=== PATIENT | female | born 1990 | race African-American/Black ===

== ENCOUNTER 2023-08-11 12:37 | Emergency (ER) | payer MEDICAID ==
[~2023-08-11] VITALS: Ht 182.9 cm; Wt 82.6 kg
[2023-08-11 13:54] VITALS: BP 135/95; PULSE 84; RESP 16; TEMP 98.1; O2SAT 99
[2023-08-11] MEDS ORDERED: CEPH500C PO (14:10)
[2023-08-11] MEDS ORDERED: IBUP-1454 PO (14:10)
[2023-08-11] MEDS ORDERED: cefTRIAXone SOD 1,000 MG VL IM ONE (14:15)
[2023-08-11] MEDS ORDERED: LIDOCAINE 1% HCL (LOCAL ANESTH.) INJ 20ML MDV IJ ONE (14:30)
== END 2023-08-11 14:28 | disposition home or self-care (01) ==
LOC: ER 12:37
DX: S00.86XA Insect bite (nonvenomous) of other part of head, initial encounter (principal); Z79.1 Long term (current) use of non-steroidal anti-inflammatories (NSAID); Z79.899 Other long term (current) drug therapy; W57.XXXA Bitten or stung by nonvenomous insect and other nonvenomous arthropods, initial encounter; Y93.89 Activity, other specified; Y92.89 Other specified places as the place of occurrence of the external cause; Y99.8 Other external cause status
CPT/HCPCS: 96372; 99283; J0696; J2001

== ENCOUNTER 2025-06-06 00:20 | Inpatient (IN) | payer MEDICAID ==
[2025-06-06] VITALS (82 sets, daily range): BP systolic 102–168; BP diastolic 64–111; PULSE 57–103; RESP 15–24; TEMP 97.7–98.8; O2SAT 98–100
[~2025-06-06] VITALS: Ht 172.7 cm; Wt 89.4 kg
[~2025-06-06 00:20] MED LIST: CEPH500C PO; IBUP-1454 PO
[2025-06-06] MEDS: levETIRAcetam 1000 mg/100ml 100 ML IV ONE (00:32)
[2025-06-06] MEDS: LORazepam 2MG/ML-1ML VIAL IM ONE (00:37)
[2025-06-06] MEDS: LORazepam 2MG/ML-1ML VIAL IV ONE ×2 (00:42→00:47)
[2025-06-06 00:55] LABS: Nucleated Red Blood Cells % 0.1 %
[2025-06-06 00:57] LABS: Hematocrit 32.8 % (36.0-46.0); Hemoglobin 11.1 g/dL (12.2-16.2); Mean Corpuscular Hemoglobin 34.2 pg (28.0-32.0); Mean Corpuscular Volume 100.9 fL (80.0-100.0)
[2025-06-06 01:08] LABS: Chloride 107 mmol/L (98-107); Potassium 4.1 mmol/L (3.5-5.1); Sodium 138 mmol/L (136-145)
[2025-06-06 01:09] LABS: Anion Gap 7 (5-15); Carbon Dioxide 24 mmol/L (20-31)
[2025-06-06 01:10] LABS: Calcium 8.9 mg/dL (8.7-10.4)
[2025-06-06] MEDS: ROCURONIUM 10MG/ML 10ML VIAL IV ONE (01:10)
[2025-06-06] MEDS: ETOMIDATE (2MG/ML) 20ML VIAL IV ONE ×2 (01:10→01:20)
[2025-06-06] MEDS: MIDAZOLAM HCL 2MG/2ML 2ml VIAL (1mg/ml) IV ONE (01:10)
[2025-06-06 01:14] LABS: BUN/Creatinine Ratio 13.6 (10.0-20.0); Blood Urea Nitrogen 12 mg/dL (9-23); Glucose 86 mg/dL (74-106)
[2025-06-06] MEDS: PROPOFOL 100 ML IV SCH (01:14)
[2025-06-06] MEDS: MIDAZOLAM HCL 2MG/2ML 2ml VIAL (1mg/ml) ONE (01:20)
[2025-06-06] MEDS: PROPOFOL 100 ML IV ONE ×2 (01:21→01:23)
--- NOTE | 2025-06-06 01:48 | ED.PDOC ---
HPI (NEURO) HPI Comments 34-year-old female history of seizures, who was brought in by roommate. Roommate states that patient was at a green party when she started having seizures in the room that has called back. We will may brought the patient straight to emergency department. While in the emergency department patient had minimum 70 seizures witnessed, lasting approximate 45 seconds. Seizures were approximate every other minute. Patient had minor episodes of alertness and states she has been intubated in the past for her seizures. Patient states last seizure was yesterday. States she has been taking her Keppra as prescribed. Chief Complaint: Seizure Time Seen by MD: 00:28 Primary Care Provider: BARAK Oneal Notes: Nurses Notes Information Source: Patient Mode of Arrival: Wheelchair Past Medical History PAST MEDICAL HISTORY: Denies Surgical History: Denies all surgeries WOOD TYPE CUTTER History: No Pertinent WOOD TYPE CUTTER History Family History Family History: Reviewed,noncontributory to illness, No family hx of Cancer, No family hx of DM, No family hx of Heart ramy, No family hx of HTN, No family hx ofKidney ramy, No family hx of Liver ramy, No family hx of Lung ramy, No family hx of Stroke Social History Smoker: Non-Smoker Alcohol: Denies ETOH Use Drugs: Denies Drug Use Lives In: Home Unable to Obtain due to: Altered Mental Status Physical Exam General Appearance: Severe Distress HEENT: Other ([place], fixed) Neck: NOT DONE Respiratory: Lungs Clear, No Accessory Muscle Use Cardiovascular: Normal Peripheral Pulses, Regular Rate/Rhythm Breast Exam: Deferred Gastrointestinal: Normal Bowel Sounds Genitalia: Deferred Pelvic: Deferred Rectal: None Extremities: Normal capillary refill, Normal inspection Neurologic: Seizure Cerebellar Function: NOT DONE Reflexes: NOT DONE Skin: Dry, Warm Lymphatic: NOT DONE Was a procedure done? Was a procedure done?: Yes Sedation Sedation?: No Intubation Indication: Altered Mental Status, Airway Protection Prep: Preoxygenation Pretreated with: Sedation Medicated with: Other (Rocuronium, Versed, etomidate) Intubation Approach: Orotracheal Intubation size: cm (8) Informed consent obtained: Yes Risks/benefits/alt described: Yes Differential Diagnosis (SZ) Seizure: Closed Head Injury, CVA/TIA, Drug Ingestion, Meningitis, Epilepsy- Break Through, Epilepsy-Status X-Ray, Labs, Meds, VS Vital Signs Date Time Temp Pulse Resp B/P (MAP) Pulse Ox O2 Delivery O2 Flow Rate FiO2 06/06/25 02:15 143/99 06/06/25 01:14 131/97 06/06/25 01:10 137/90 06/06/25 00:20 98.5 77 12 151/96 (114) 100 98.5 Lab Test 06/06/25 02:09 06/06/25 01:39 06/06/25 00:32 Range/Units Blood Gas Specimen Type Arterial Blood Gas Sample Site Right radial Blood Gas Patient Temperature 37.0 Arterial Blood Date Drawn [id number] Arterial Blood pH 7.385 7.350-7.450 Arterial Blood Partial Pressure CO2 39.3 32.0-45.0 mmHg Arterial Blood Partial Pressure O2 212.6 H 83.0-108.0 mmHg Arterial Blood HCO3 23.0 21.0-28.0 mmol/L Arterial Blood Oxygen Saturation 99.4 H 94.0-98.0 % Arterial Blood Base Excess -1.8 -2.0-3.0 mmol/L Arterial Blood Oxyhemoglobin 98.5 H 94.0-98.0 % Arterial Blood Carboxyhemoglobin 0.6 0.5-1.5 % Arterial Blood Methemoglobin 0.3 0.0-1.5 % Hi Test Modified Blood Gas Total Hemoglobin 12.10 12.0-16.0 g/dL Blood Gas Set Respiration Rate 16.0 Blood Gas Modality Vent - ac Blood Gas Spontaneous Rate 18 FiO2 % 50.0 Blood Gas Tidal Volume 450.0 Blood Gas Spontaneous Tidal Volume 411 Blood Gas PEEP or CPAP 5.0 Bl Gas Inspiratory/Expiratory Ratio 1:2:3 Specimen Drawn By rt Simran Urine Color Pending Urine Clarity Pending Urine pH Pending Urine Specific [place] Pending Urine Protein Pending Urine Ketones Pending Urine Blood Pending Urine Nitrite Pending Urine Bilirubin Pending Urine Urobilinogen Pending Urine Leukocyte Esterase Pending Urine RBC Pending Urine Microscopic WBC Pending Urine Squamous Epithelial Cells Pending Urine Bacteria Pending Urine Glucose Pending White Blood Count 6.9 4.4-10.8 10^3/uL Red Blood Count 3.25 L 4.0-5.20 10^6/uL Hemoglobin 11.1 L 12.2-16.2 g/dL Hematocrit 32.8 L 36.0-46.0 % Mean Corpuscular Volume 100.9 H 80.0-100.0 fL Mean Corpuscular Hemoglobin 34.2 H 28.0-32.0 pg Mean Corpuscular Hemoglobin Concent 33.9 32.0-36.0 g/dL Red Cell Distribution Width 13.7 11.8-14.3 % Platelet Count 303 140-450 10^3/uL Mean Platelet Volume 8.1 6.9-10.8 fL Neutrophils (%) (Auto) 50.3 37.0-80.0 % Lymphocytes (%) (Auto) 39.8 10.0-50.0 % Monocytes (%) (Auto) 7.9 0.0-12.0 % Eosinophils (%) (Auto) 1.2 0.0-7.0 % Basophils (%) (Auto) 0.8 0.0-2.0 % Neutrophils # (Auto) 3.5 1.6-8.6 10 ^3/uL Lymphocytes # (Auto) 2.7 0.4-5.4 10 ^3/uL Monocytes # (Auto) 0.5 0-1.3 10 ^3/uL Eosinophils # (Auto) 0.1 0-0.8 10 ^3/uL Basophils # (Auto) 0.1 0-0.2 10 ^3/uL Nucleated Red Blood Cells 0.1 % Sodium Level 138 136-145 mmol/L Potassium Level 4.1 3.5-5.1 mmol/L Chloride Level 107 98-107 mmol/L Carbon Dioxide Level 24 20-31 mmol/L Anion Gap 7 5-15 Blood Urea Nitrogen 12 9-23 mg/dL Creatinine 0.88 0.550-1.02 mg/dL Glomerular Filtration Rate Calc 88 >90 mL/min BUN/Creatinine Ratio 13.6 10.0-20.0 Serum Glucose 86 74-106 mg/dL Calcium Level 8.9 8.7-10.4 mg/dL Plasma/Serum Blood Alcohol Pending Current Medications Medications (Trade) Dose Ordered Sig/La Route Start Time Stop Time Status Last Admin Levetiracetam 100 ml @ 400 mls/hr ONCE ONCE IV 06/06/25 00:30 06/06/25 00:44 DC 06/06/25 00:32 Lorazepam (Ativan Inj) 1 mg ONCE ONCE IM 06/06/25 00:30 06/06/25 00:31 DC 06/06/25 00:37 Rocuronium [place] 70 mg ONCE ONCE IV 06/06/25 01:00 06/06/25 01:01 DC 06/06/25 01:10 Etomidate 20 mg ONCE ONCE IV 06/06/25 01:00 06/06/25 01:01 DC 06/06/25 01:10 Midazolam HCl (Versed Injection) 15 mg ONCE ONCE IV 06/06/25 01:00 06/06/25 01:01 DC 06/06/25 01:10 Propofol 100 ml @ 2.124 mls/ hr Q24H IV 06/06/25 01:30 06/06/25 01:14 Lorazepam (Ativan Inj) 1 mg ONCE ONCE IV 06/06/25 01:45 06/06/25 01:46 DC 06/06/25 00:42 Lorazepam (Ativan Inj) 1 mg ONCE ONCE IV 06/06/25 01:45 06/06/25 01:46 DC 06/06/25 00:47 Midazolam HCl 50 ml @ 1 mls/hr Q24H IV 06/06/25 02:15 06/06/25 02:15 X-Ray, Labs, Meds, VS Comment Patient will be admitted for active seizures Time of 1ST Reevaluation: 01:45 Reevaluation 1ST: Improved Patient Education/Counseling: Diagnosis, Treatment Family Education/Counseling: Diagnosis, Treatment Assigned to Dr. Macias Change of Shift?: Yes Departure 1 Departure Time of Disposition: 01:44 Impression: Primary Impression: Seizure Disposition: 09 ADMITTED INPATIENT Condition: Guarded Critical Care Note Critical Care Time?: No Stability Stability form required: No Heart Score Heart Score: Heart Score Response (Comments) Value History N/A 0 EKG N/A 0 Age N/A 0 Risk Factors N/A 0 Troponin N/A 0 Total 0 THONY ALVA Jun 06, 2025 01:48
[2025-06-06] MEDS: MIDAZOLAM DRIP 50 mg/50mL 50 ML IV SCH (02:15)
[2025-06-06 02:16] LABS: Base Excess -1.8 mmol/L (-2.0-3.0)
[2025-06-06] MEDS: MIDAZOLAM DRIP 50 mg/50mL 50 ML IV ONE (02:29)
[2025-06-06 02:43] LABS: Urine Protein, UAD Negative (Negative)
--- NOTE | 2025-06-06 03:31 | DVH ---
CHEST RADIOGRAPH Indication: LINE PLACEMENT Technique: Single frontal view of the chest was obtained COMPARISON: None FINDINGS: Lines and Tubes: Endotracheal tube tip projects approximately 3.0 cm above the level of the juan j. Enteric catheter courses below the level of the diaphragm and terminates within the left upper quadra nt, presumably within the gastric lumen. Lungs: Mild bibasilar infiltrate and/or atelectasis. The upper lung zones are clear. Pleura: No effusion. No pneumothorax. Cardiomediastinal contours: Unremarkable Bones: Unremarkable IMPRESSION: 1. Mild bibasilar infiltrate and/or atelectasis. 2. Endotracheal tube and enteric catheter as above.
--- NOTE | 2025-06-06 03:37 | DVH ---
EXAM: CT HEAD WITHOUT CONTRAST INDICATION: sz TECHNIQUE: CT of the head without intravenous contrast. Radiation Dose : 1. Head: CT Dose: CTDI volume is 66.74 mGy. Dose-length product is 1181.44 mGy*cm The dose indicators for CT are the volume Computed Tomography (CT) Dose Index (CTDIvol) and the Dose Length Product (DLP), and are measured in units of mGy and mGy-cm, respectively. These indicators are not patient dose, but values generated from the CT scanner acquisition factors. The report includes radiation exposure data for exposures received during this examination. COMPARISON: None FINDINGS: There is no evidence of acute intracranial hemorrhage, extra-axial collection, mass effect, midline s hift, herniation or hydrocephalus. The ventricles, sulci and cisterns are age appropriate. The thakkar-white differentiation is intact. Patchy periventricular and subcortical white matter hypoattenuation is nonspecific but may be related to small vessel ischemic disease. Right maxillary and bilateral anterior ethmoid mucosal sinus disease. The remaining visualized paran jamshid sinuses and mastoid air cells are clear. The surrounding soft tissues and osseous structures are unremarkable. IMPRESSION: 1. No acute intracranial abnormality. Radiation optimization: All CT scans at this facility use at least one of these dose optimization lili hniques: automated exposure control mA and/or kV adjustment per patient size (includes targeted exam s where dose is matched to clinical indication) or iterative reconstruction.
--- NOTE | 2025-06-06 04:09 | DVHHPRES ---
History of Present Illness Resident Creating Document: YANELIS COLUNGA RESIDENT History of Present Illness 34 years old female intubated and mechanically ventilated following witnessed generalized tonic-clonic seizure and altered mental status. To protect the airway intubation was done in the ER. Based on history and documentation of ER physician and nurse, the patient was brought in by roommate. The patient started having seizures while at the constitution party and was brought to the ER. In the ER patient had 70 episodes of seizures witnessed, lasting approximate 45 seconds each. Seizures occurred roughly every 2 minutes. While patient had minimal alertness she provided history of previous intubation for seizures. Patient was compliant with her seizure medication Keppra. Further history is limited due to the patient's condition. Review of Systems Neurological: Seizures Allergies: Coded Allergies: NO KNOWN ALLERGIES (Unverified , 08/11/23) Medications Current Medications Medications Dose Ordered Sig/La Route Start Time Stop Time Status Last Admin Dose Admin Propofol 100 ml @ 2.124 mls/ hr Q24H IV 06/06/25 01:30 06/06/25 01:14 2.124 MLS/HR Midazolam HCl 50 ml @ 1 mls/hr Q24H IV 06/06/25 02:15 06/06/25 02:15 10 MLS/HR Exam Vital Signs Vital Signs Date Time Temp Pulse Resp B/P (MAP) Pulse Ox O2 Delivery O2 Flow Rate FiO2 06/06/25 03:45 88 19 116/69 (85) 100 06/06/25 03:39 97.8 30 97.8 06/06/25 01:00 Nasal Cannula* 5 Exam Pt is lying on bed General Appearance: Intubated and mechanically ventilated. HEENT: Atraumatic, Mucous membranes moist/pink Respiratory: Clear to auscultation, Normal air movement, No added sounds Cardiovascular: Regular rate, Normal S1, Normal S2, No murmurs Abdominal/ : Active bowel sounds, Soft, no distention, no tenderness Extremities: No edema, Normal pulses, No tenderness/swelling Skin: No Significant rash, except past surgical scars Neuro: Normal speech, sensorimotor deficits none Psych/Mental Status: Mental status NL, Mood NL Nurse was there as custody officer during examination Labs/Xrays Labs Test 06/06/25 02:09 06/06/25 01:39 06/06/25 00:32 Range/Units Blood Gas Specimen Type Arterial Blood Gas Sample Site Right radial Blood Gas Patient Temperature 37.0 Arterial Blood Date Drawn [id number] Arterial Blood pH 7.385 7.350-7.450 Arterial Blood Partial Pressure CO2 39.3 32.0-45.0 mmHg Arterial Blood Partial Pressure O2 212.6 H 83.0-108.0 mmHg Arterial Blood HCO3 23.0 21.0-28.0 mmol/L Arterial Blood Oxygen Saturation 99.4 H 94.0-98.0 % Arterial Blood Base Excess -1.8 -2.0-3.0 mmol/L Arterial Blood Oxyhemoglobin 98.5 H 94.0-98.0 % Arterial Blood Carboxyhemoglobin 0.6 0.5-1.5 % Arterial Blood Methemoglobin 0.3 0.0-1.5 % Hi Test Modified Blood Gas Total Hemoglobin 12.10 12.0-16.0 g/dL Blood Gas Set Respiration Rate 16.0 Blood Gas Modality Vent - ac Blood Gas Spontaneous Rate 18 FiO2 % 50.0 Blood Gas Tidal Volume 450.0 Blood Gas Spontaneous Tidal Volume 411 Blood Gas PEEP or CPAP 5.0 Bl Gas Inspiratory/Expiratory Ratio 1:2:3 Specimen Drawn By Tello walker, rt Urine Color Light-yellow Yellow Urine Clarity Clear Clear Urine pH 6.0 5.0-9.0 Urine Specific [place] 1.015 1.001-1.035 Urine Protein Negative Negative Urine Ketones Negative Negative Urine Blood Trace H Negative /uL Urine Nitrite Negative Negative Urine Bilirubin Negative Negative Urine Urobilinogen 2 H Negative mg/dL Urine Leukocyte Esterase Negative Negative /uL Urine RBC <1 0 - 4 /hpf Urine Microscopic WBC 1 0-5 /HPF Urine Squamous Epithelial Cells Few <5 /hpf Urine Bacteria None seen None Seen /hpf Urine Glucose Normal Normal mg/dL White Blood Count 6.9 4.4-10.8 10^3/uL Red Blood Count 3.25 L 4.0-5.20 10^6/uL Hemoglobin 11.1 L 12.2-16.2 g/dL Hematocrit 32.8 L 36.0-46.0 % Mean Corpuscular Volume 100.9 H 80.0-100.0 fL Mean Corpuscular Hemoglobin 34.2 H 28.0-32.0 pg Mean Corpuscular Hemoglobin Concent 33.9 32.0-36.0 g/dL Red Cell Distribution Width 13.7 11.8-14.3 % Platelet Count 303 140-450 10^3/uL Mean Platelet Volume 8.1 6.9-10.8 fL Neutrophils (%) (Auto) 50.3 37.0-80.0 % Lymphocytes (%) (Auto) 39.8 10.0-50.0 % Monocytes (%) (Auto) 7.9 0.0-12.0 % Eosinophils (%) (Auto) 1.2 0.0-7.0 % Basophils (%) (Auto) 0.8 0.0-2.0 % Neutrophils # (Auto) 3.5 1.6-8.6 10 ^3/uL Lymphocytes # (Auto) 2.7 0.4-5.4 10 ^3/uL Monocytes # (Auto) 0.5 0-1.3 10 ^3/uL Eosinophils # (Auto) 0.1 0-0.8 10 ^3/uL Basophils # (Auto) 0.1 0-0.2 10 ^3/uL Nucleated Red Blood Cells 0.1 % Sodium Level 138 136-145 mmol/L Potassium Level 4.1 3.5-5.1 mmol/L Chloride Level 107 98-107 mmol/L Carbon Dioxide Level 24 20-31 mmol/L Anion Gap 7 5-15 Blood Urea Nitrogen 12 9-23 mg/dL Creatinine 0.88 0.550-1.02 mg/dL Glomerular Filtration Rate Calc 88 >90 mL/min BUN/Creatinine Ratio 13.6 10.0-20.0 Serum Glucose 86 74-106 mg/dL Calcium Level 8.9 8.7-10.4 mg/dL Plasma/Serum Blood Alcohol 3.6 <10 mg/dL SEPSIS Sepsis Screen Date sepsis recognized/suspect: Jun 06, 2025 Time Sepsis recognized/suspect: 010 Recent Procedure: No On Antibiotic Therapy: No Respiratory Rate >20: No Heart Rate >90: No Temp<36 C (96.8 F) or >38.3 C: No SBP <90 or MAP <65 mmHG: No New Acute Mental Status Change: No Is the patient on CPAP, BIPAP,: No Physician Orders Propofol (Diprivan) (06/06/25 01:30) Rass Sedation Scale Q1HR (06/06/25 01:21) Head Without Contrast (06/06/25 01:26) Ventilator Orders (06/06/25 01:30) Respiratory Culture W/ Gs (06/06/25 01:30) Abg W/ Co-Ox (06/06/25 01:30) Midazolam Drip 50 Mg/50ml (Versed Drip 5 (06/06/25 02:15) Communication Order (06/06/25 02:04) Chest Xray 1 View (06/06/25 03:01) Endodontic Assistant (06/06/25 ) Vital Signs Date Time Temp Pulse Resp B/P (MAP) Pulse Ox O2 Delivery O2 Flow Rate FiO2 06/06/25 03:45 88 19 116/69 (85) 100 06/06/25 03:45 111/73 06/06/25 03:45 111/73 06/06/25 03:40 94 19 98/61 (73) 100 06/06/25 03:39 97.8 72 16 131/97 100 30 97.8 06/06/25 03:25 78 16 117/78 (91) 100 06/06/25 03:12 79 17 144/97 (113) 100 30 06/06/25 03:10 82 16 122/81 (95) 100 06/06/25 03:00 144/97 06/06/25 02:55 67 16 144/97 (113) 100 06/06/25 02:45 145/104 06/06/25 02:40 73 16 131/92 (105) 100 06/06/25 02:25 82 16 145/103 (117) 100 06/06/25 02:15 143/99 06/06/25 02:10 87 16 153/107 (122) 100 06/06/25 02:00 165/121 06/06/25 01:55 94 18 162/118 (133) 100 06/06/25 01:40 86 17 167/113 (131) 100 06/06/25 01:30 131/97 06/06/25 01:25 108 16 155/115 (128) 100 06/06/25 01:15 103 16 137/90 (106) 100 50 06/06/25 01:14 131/97 06/06/25 01:10 137/90 06/06/25 01:10 97.8 75 16 137/90 (106) 100 97.8 06/06/25 01:00 98 Nasal Cannula* 5 40 06/06/25 00:20 98.5 77 12 151/96 114 100 98.5 Laboratory Tests Test 06/06/25 00:32 White Blood Count 6.9 10^3/uL (4.4-10.8) Medications Medications Dose Ordered Sig/La Route Start Time Stop Time Status Last Admin Dose Admin Etomidate 20 mg ONCE ONCE IV 06/06/25 01:00 06/06/25 01:01 DC 06/06/25 01:10 20 MG Levetiracetam 100 ml @ 400 mls/hr ONCE ONCE IV 06/06/25 00:30 06/06/25 00:44 DC 06/06/25 00:32 400 MLS/HR Lorazepam 1 mg ONCE ONCE IM 06/06/25 00:30 06/06/25 00:31 DC 06/06/25 00:37 1 MG Lorazepam 1 mg ONCE ONCE IV 06/06/25 01:45 06/06/25 01:46 CT 06/06/25 00:42 1 MG Lorazepam 1 mg ONCE ONCE IV 06/06/25 01:45 06/06/25 01:46 CT 06/06/25 00:47 1 MG Midazolam HCl 15 mg ONCE ONCE IV 06/06/25 01:00 06/06/25 01:01 DC 06/06/25 01:10 15 MG Midazolam HCl 50 ml @ 1 mls/hr Q24H IV 06/06/25 02:15 06/06/25 02:15 10 MLS/HR Propofol 100 ml @ 2.124 mls/ hr Q24H IV 06/06/25 01:30 06/06/25 01:14 2.124 MLS/HR Rocuronium [place] 70 mg ONCE ONCE IV 06/06/25 01:00 06/06/25 01:01 DC 06/06/25 01:10 70 MG Assessment/Plan Assessment/Plan Status epilepticus? Generalized tonic-clonic seizure -patient received 3 doses of Ativan, Keppra 400 and Versed in the ER. -mechanically ventilated and intubated to protect airway -continue propofol 100 mL at 2.124 mls/ per hour per protocol 5 mcg/kg/minute -continue midazolam 50 mL at 1 mL/hour GI prophylaxis: Pantoprazole DVT prophylaxis: Lovenox Diet: NPO Goals of care discussed with the patient for more than 27 minutes: Full code status Case discussed with , patient and RN Plan discussed with: Other (RN) Common Visit Codes: 53975-[id number] INP/OBS CARE (HIGH) Secondary Visit Codes: [id number] CARE PLAN 30 MINUTES YANELIS COLUNGA RESIDENT Jun 06, 2025 04:09
[2025-06-06] MEDS ORDERED: NITROGLYCERIN 0.4 MG SL TAB SL PRN (04:45)
[2025-06-06 06:20] LABS: Base Excess -4.3 mmol/L (-2.0-3.0)
[2025-06-06] MEDS: ENOXAPARIN SOD 40 MG/0.4 ML SYRINGE SC SCH (08:58)
[2025-06-06] MEDS: PANTOPRAZOLE 40 MG/10 ML VIAL INJ IV SCH (08:58)
--- NOTE | 2025-06-06 10:01 | DVHPNRES ---
Progress Note Date Seen: Jun 06, 2025 Resident Creating Document: ANETTEJBIB Escobar RESIDENT Medical Necessity Reason Pt with a Central, PICC or Fol: No Subjective Review of Systems Patient is a 34-year-old female with a medical history of seizure disorder was brought to the ED by his roommate who stated that patient was at a green party when she started having seizures in the room following which the patient was brought to the emergency department. As per the records from the ED physician patient had minimum of 70 seizures witnessed lasting approximately 45 seconds and happening every other minute following which patient was given Ativan and multiple rounds of Versed and had to be intubated for airway protection. As reported patient had been intubated in the past for her seizures and reported that last seizure was yesterday and that she has been taking her Keppra as prescribed. Talking to the father Mr. Ko, he reported with the patient is living by her on and was . He reports that the patient has got seizure disorder since the last 3 years. She has gotten intubated before for breakthrough seizures and was admitted in the [facility]. Medical history: seizure disorder Surgical history: Unknown Gynecological history: Unknown Social history: Unknown Home medications: As per the records from medication reconciliation patient is on lacosamide 200 mg b.i.d., Keppra 500 mg b.i.d., divalproex 250 mg b.i.d. Review of systems Patient is seen and examined at the bedside Sedated with propofol and midazolam with a RASS of -4 On minimal ventilator settings, maintaining saturation 100% Objective vital signs Vital Sign Date Time Temp Pulse Resp B/P (MAP) Pulse Ox O2 Delivery O2 Flow Rate FiO2 06/06/25 08:11 72 16 114/77 (89) 100 30 06/06/25 03:39 97.8 97.8 06/06/25 01:00 Nasal Cannula* 5 Total Intake and Output 06/05/25 06/05/25 06/06/25 15:00 23:00 07:00 Intake Total 133.116 ml Balance 133.116 ml medications Current Medications Medications Dose Ordered Sig/La Route Start Time Stop Time Status Last Admin Dose Admin Propofol 100 ml @ 2.124 mls/ hr Q24H IV 06/06/25 01:30 06/06/25 09:29 8.496 MLS/HR Midazolam HCl 50 ml @ 1 mls/hr Q24H IV 06/06/25 02:15 06/06/25 02:15 10 MLS/HR Nitroglycerin 0.4 mg Q5MINP PRN SL 06/06/25 04:45 Morphine Sulfate 2 mg Q30M PRN IV 06/06/25 04:45 Enoxaparin Sodium 40 mg DAILY SC 06/06/25 08:40 06/06/25 08:58 40 MG Pantoprazole Sodium 40 mg DAILY IV 06/06/25 10:00 06/06/25 08:58 40 MG Examination Constitutional: Patient is sedated with Versed and propofol with a RASS -4 and is on mechanical ventilation Gen - no pallor, no icterus, no cyanosis, no clubbing, no LAD, no edema . Skin - Patients skin is warm and dry. HEENT - normocephalic, atraumatic, moist mucous membranes. Neck - no LAD, no JVD Pulmonary - B/L equal breath sounds, no rales, no wheezing cardiovascular - regular S1,S2 heard, no added sounds, no murmurs heard. peripheral pulses normal radial 2+, pedal 1+. capillary refill normal >3 secs. GI - soft abdomen. Bowel sounds normoactive Neurological - patient is sedated with a RASS of-4 and on mechanical ventilation laboratory and microbiology Laboratory Tests 06/06/25 00:32 Test 06/06/25 00:32 Range/Units Serum Glucose 86 74-106 mg/dL Labs and/or images reviewed: Labs reviewed by me Problem List/Assessment/Plan Problem List/Assessment/Plan Neurology Acute metabolic encephalopathy likely due to seizures Status epilepticus History of seizure disorder Possible poor Medication noncompliance mechanical ventilation - Keppra 1000 mg b.i.d. IV - sedation with propofol and Versed. 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 Ko. Code status: Full code Records to be obtained from [facility], as per the father patient was admitted with similar complaints there previously and was intubated Critical care time spent excluding procedures 82 mins Plan discussed with Dr. Smith Plan discussed with: Other (Father, RN Corby) My Orders My Orders Orders - BIB MCNAIR Procedure Category Date Status Time * Picc Line Consult CONS 06/06/25 Transmitted 09:45 PTPTT LAB 06/06/25 Logged 09:45 Date of Service: Jun 06, 2025 Billing Provider: ERICA SMITH MD Common Visit Codes: [id number] CARE 30-74 MIN, [id number] CARE-EACH +30MIN BIB MCNAIR Jun 06, 2025 10:01 ERICA SMITH MD Jun 07, 2025 15:33
[2025-06-06] MEDS: SODIUM CHLORIDE 0.9% 1,000 ML IV ONE (10:29)
[2025-06-06] MEDS: levETIRAcetam 1000 mg/100ml 100 ML IV SCH (10:29)
[2025-06-06 12:22] LABS: INR 1.08 (0.9-1.15); Partial Thromboplastin Time 31.9 SEC (24.5-34.5); Prothrombin Time 11.4 sec (9.3-11.8)
[2025-06-06 12:26] LABS: Alanine Aminotransferase 13 U/L (7-40); Albumin 4.2 g/dL (3.2-4.8); Alkaline Phosphatase 63 U/L (46-116); Anion Gap 10 (5-15); BUN/Creatinine Ratio 11.6 (10.0-20.0); Blood Urea Nitrogen 11 mg/dL (9-23); Calcium 9.8 mg/dL (8.7-10.4); Carbon Dioxide 24 mmol/L (20-31); Creatine Kinase IFCC 163 U/L (34-145); Glucose 83 mg/dL (74-106); Magnesium 1.9 mg/dL (1.6-2.6); Potassium 4.2 mmol/L (3.5-5.1); Sodium 141 mmol/L (136-145); Total Protein 6.9 g/dL (5.7-8.2)
[2025-06-06 12:30] LABS: Bilirubin, Total 0.3 mg/dL (0.2-1.0); Chloride 107 mmol/L (98-107)
--- NOTE | 2025-06-06 12:58 | DVH ---
CHEST RADIOGRAPH Indication: Central line placement Technique: Single frontal view of the chest was obtained Comparison: XY CHEST XRAY 1 VIEW on DOS: 06/06/25 FINDINGS: Lines and Tubes: Endotracheal tube terminates 4.2 cm above the juan j. Right central venous catheter terminates in the superior vena cava. The enteric tube courses below the left hemidiaphragm and the tip extends outside the field of view. Lungs: Hazy right lung opacities. Pleura: No effusion. No pneumothorax. Cardiomediastinal contours: Unremarkable Bones: No acute osseous abnormality. IMPRESSION: 1. Right central venous catheter terminates in the superior vena cava. 2. Hazy right lung opacities which may reflect pneumonia or edema.
[2025-06-06 12:59] LABS: Amphetamine Screen, Urine Neg (NEGATIVE); Cocaine Screen, Urine Neg (NEGATIVE); Opiate Scree,Urine Pos (NEGATIVE)
[2025-06-06 13:01] LABS: Barbiturate Scree,Urine Neg (NEGATIVE); Benzodiazephine Screen, Urine Pos (NEGATIVE); Cannabinoid Screen, Urine Neg (NEGATIVE); Phencyclidine Screen, Urine Neg (NEGATIVE)
[2025-06-06 13:02] LABS: Hematocrit 33.6 % (36.0-46.0); Hemoglobin 11.3 g/dL (12.2-16.2); Mean Corpuscular Hemoglobin 33.9 pg (28.0-32.0); Mean Corpuscular Volume 101.0 fL (80.0-100.0); Nucleated Red Blood Cells % 0.1 %
--- NOTE | 2025-06-06 13:33 | DVHNC2 ---
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 (resident physician) Indication: Volume resuscitation, Inability to obtain IV Room prepared for procedure: Yes Script Manager performed hand hygien: Yes Maximal sterile barrier precau: Mask/Eye shield, Sterile gown, Cap, Sterlie gloves, Large sterlie drape Skin Preparation: Providine iodine Skin preparation completely dr: Yes Insertion site: Right, Internal jugular Central line catheter type: [id number] dialysis Number of lumens: 3 Central line exchanged over a: No Post Assessment: Chest X-Ray, Proper placement UTO Consent yes Date of Service: Jun 06, 2025 Billing Provider: ERICA SMITH MD Common Visit Codes: PROCEDURE ONLY Procedure Codes: [id number] NON-TUNNEL CV CATH BIB MCNAIR Jun 06, 2025 13:33 ERICA SMITH MD Jun 10, 2025 12:19
[2025-06-06] MEDS: LACTATED RINGER'S 1,000 ML IV ONE (16:53)
--- NOTE | 2025-06-06 20:50 | DVHINCON2 ---
Date of service: Jun 06, [address] Avalos Reason for Consultation Seizure History of Present Illness Ms. Sol is a 74 years old female with a history of seizure disorder, she was brought to the [facility] by her roommate on 06/06/25 with a chief company of seizure. Apparently the patient has had seizure activity once every 30-40 seconds, about 45 seconds each in the ER, she had 70 witnessed seizure activity (Dr. Vickie Angulo's note dated 06/06/25). The patient has been intubated, this no family available for the history According to our external medical history, she filled lacosamide 200 mg b.i.d. , Keppra 500 mg b.i.d., valproic acid 1500 mg/day, last time she had this medication field was 04/26/2025, , no answer. [phone], no answer. [phone], no answer UDS, 06/06/2025: Benzo, opiates Plasma alcohol, 06/06/25: 3.6 ABG, 06/06/2025 0290: Unremarkable. 05/28/2025 0614: Compensated metabolic acidosis Urinalysis, 06/06/2025: WBC:, one, urine leukocyte esterase: Negative WBC/HB/PLT/MCV, 06/06/2025: 5.4/11.3/285/101 CMP, 06/06/2025: Unremarkable HCO3, 05/28/2025 0032: 24, 06/06/25 1150: 24 Folic acid, : 16 CT head, 06/06/2025: No acute intracranial abnormality. Past Medical History Seizure disorder, asthma Past Surgical History Unobtainable Family History Unobtainable Social History Unobtainable Allergies: Coded Allergies: NO KNOWN ALLERGIES (Unverified , 08/11/23) Home Meds Active Scripts Ibuprofen (Ibuprofen) 600 Mg Tab, 1 TAB PO TID, #24 TAB Prov:SELIN REYES 08/11/23 Cephalexin Monohydrate (Cephalexin) 500 Mg Cap, 1 CAP PO QID, #32 CAP Prov:SELIN REYES 08/11/23 Current Medications Current Medications Medications (Trade) Dose Ordered Sig/La Route PRN Reason Start Time Stop Time Status Last Admin Propofol 100 ml @ 2.124 mls/ hr Q24H IV 06/06/25 01:30 06/06/25 18:51 Midazolam HCl 50 ml @ 1 mls/hr Q24H IV 06/06/25 02:15 06/06/25 18:53 Nitroglycerin (Ntrostat Sublingual) 0.4 mg Q5MINP PRN SL FOR CHEST PAIN 06/06/25 04:45 Morphine Sulfate 2 mg Q30M PRN IV FOR CHEST PAIN 06/06/25 04:45 Enoxaparin Sodium (Lovenox) 40 mg DAILY SC 06/06/25 08:40 06/06/25 13:28 DC 06/06/25 08:58 Pantoprazole Sodium (Protonix) 40 mg DAILY IV 06/06/25 10:00 06/06/25 08:58 Levetiracetam 100 ml @ 400 mls/hr BID IV 06/06/25 10:00 06/06/25 10:29 Lorazepam (Ativan Inj) 1 mg Q5MINP PRN IV SEIZURES 06/06/25 10:00 Enoxaparin Sodium (Lovenox) 40 mg DAILY SC 06/07/25 10:00 Enteral Nutritional Formula (Jevity 1.2 Jarad/ Fiber) 1,000 ml 30ML/HR GT 06/06/25 16:30 Review of Systems Unobtainable Vital Signs Vital Signs Date Time Temp Pulse Resp B/P (MAP) Pulse Ox O2 Delivery O2 Flow Rate FiO2 06/06/25 20:21 74 16 107/72 (84) 99 30 06/06/25 20:00 Mechanical Ventilator+ 06/06/25 16:00 98.6 98.6 06/06/25 01:00 5 Physical Exam The patient is well-nourished and well-developed with no distress. The patient is intubated HEENT: Normocephalic, neck supple, no carotid bruits Lungs: Clear to auscultation Cardiovascular: Regular rate and region, S1, S2, no murmurs Abdomen: Soft, nontender, normal bowel sounds MENTAL STATUS: Responsive strong painful stimuli CRANIAL NERVES: Pupils are equal, round and reactive.There are corneal reflexes and doll's eyes phenomenon. No signs of facial weakness. There are gagging or coughing reflexes SENSATION: Responses to pain stimuli. MOTOR: Normal tone in the upper and lower extremity. Normal muscle bulk. No fasciculations. No spontaneous movement. REFLEXES: Deep tendon reflexes are symmetrical. No pathological reflexes. CEREBELLAR/COORDINATION: Deferred GAIT/STATION: deferred. Labs/Diagnostic Data Labs Test 06/06/25 13:11 06/06/25 12:42 06/06/25 11:55 06/06/25 11:50 Range/Units White Blood Count 5.4 4.4-10.8 10^3/uL Red Blood Count 3.33 L 4.0-5.20 10^6/uL Hemoglobin 11.3 L 12.2-16.2 g/dL Hematocrit 33.6 L 36.0-46.0 % Mean Corpuscular Volume 101.0 H 80.0-100.0 fL Mean Corpuscular Hemoglobin 33.9 H 28.0-32.0 pg Mean Corpuscular Hemoglobin Concent 33.6 32.0-36.0 g/dL Red Cell Distribution Width 13.5 11.8-14.3 % Platelet Count 285 140-450 10^3/uL Mean Platelet Volume 7.9 6.9-10.8 fL Neutrophils (%) (Auto) 60.9 37.0-80.0 % Lymphocytes (%) (Auto) 30.9 10.0-50.0 % Monocytes (%) (Auto) 5.4 0.0-12.0 % Eosinophils (%) (Auto) 2.2 0.0-7.0 % Basophils (%) (Auto) 0.6 0.0-2.0 % Neutrophils # (Auto) 3.3 1.6-8.6 10 ^3/uL Lymphocytes # (Auto) 1.7 0.4-5.4 10 ^3/uL Monocytes # (Auto) 0.3 0-1.3 10 ^3/uL Eosinophils # (Auto) 0.1 0-0.8 10 ^3/uL Basophils # (Auto) 0 0-0.2 10 ^3/uL Nucleated Red Blood Cells 0.1 % Lactic Acid Level 0.9 0.4-2.0 mmol/L Prothrombin Time 11.4 9.3-11.8 sec Prothrombin Time INR 1.08 0.9-1.15 Activated Partial Thromboplast Time 31.9 24.5-34.5 SEC Sodium Level 141 136-145 mmol/L Potassium Level 4.2 3.5-5.1 mmol/L Chloride Level 107 98-107 mmol/L Carbon Dioxide Level 24 20-31 mmol/L Anion Gap 10 5-15 Blood Urea Nitrogen 11 9-23 mg/dL Creatinine 0.95 0.550-1.02 mg/dL Glomerular Filtration Rate Calc 81 >90 mL/min BUN/Creatinine Ratio 11.6 10.0-20.0 Serum Glucose 83 74-106 mg/dL Calcium Level 9.8 8.7-10.4 mg/dL Magnesium Level 1.9 1.6-2.6 mg/dL Total Bilirubin 0.3 0.2-1.0 mg/dL Aspartate Amino Transferase (AST) 19 13-40 U/L Alanine Aminotransferase (ALT) 13 7-40 U/L Alkaline Phosphatase 63 46-116 U/L Creatine Kinase 163 H 34-145 U/L Total Protein 6.9 5.7-8.2 g/dL Albumin 4.2 3.2-4.8 g/dL Folic Acid 16.00 >5.38 ng/mL Beta HCG, Quantitative < 0.0 L 1.5-4.2 mIU/mL Test 06/06/25 06:14 06/06/25 02:09 06/06/25 01:39 06/06/25 00:32 Range/Units Blood Gas Specimen Type Arterial Blood Gas Sample Site Right radial Blood Gas Patient Temperature 37.0 Arterial Blood Date Drawn [id number] Arterial Blood pH 7.379 7.350-7.450 Arterial Blood Partial Pressure CO2 35.1 32.0-45.0 mmHg Arterial Blood Partial Pressure O2 133.2 H 83.0-108.0 mmHg Arterial Blood HCO3 20.3 L 21.0-28.0 mmol/L Arterial Blood Oxygen Saturation 98.5 H 94.0-98.0 % Arterial Blood Base Excess -4.3 L -2.0-3.0 mmol/L Arterial Blood Oxyhemoglobin 97.3 94.0-98.0 % Arterial Blood Carboxyhemoglobin 0.9 0.5-1.5 % Arterial Blood Methemoglobin 0.3 0.0-1.5 % Hi Test Modified Blood Gas Total Hemoglobin 11.10 L 12.0-16.0 g/dL Blood Gas Set Respiration Rate 16.0 Blood Gas Modality Vent - ac FiO2 % 30.0 Blood Gas Tidal Volume 450.0 Blood Gas PEEP or CPAP 5.0 Blood Gas Spontaneous Rate 18 Blood Gas Spontaneous Tidal Volume 411 Bl Gas Inspiratory/Expiratory Ratio 1:2:3 Specimen Drawn By Tello walker, Urine Color Light-yellow Yellow Urine Clarity Clear Clear Urine pH 6.0 5.0-9.0 Urine Specific [place] 1.015 1.001-1.035 Urine Protein Negative Negative Urine Ketones Negative Negative Urine Blood Trace H Negative /uL Urine Nitrite Negative Negative Urine Bilirubin Negative Negative Urine Urobilinogen 2 H Negative mg/dL Urine Leukocyte Esterase Negative Negative /uL Urine RBC <1 0 - 4 /hpf Urine Microscopic WBC 1 0-5 /HPF Urine Squamous Epithelial Cells Few <5 /hpf Urine Bacteria None seen None Seen /hpf Urine Glucose Normal Normal mg/dL Urine Opiates Screen Pos NEGATIVE Urine Fentanyl Screen Neg NEGATIVE Urine Barbiturates Screen Neg NEGATIVE Urine Phencyclidine Screen Neg NEGATIVE Urine Amphetamines Screen Neg NEGATIVE Urine Benzodiazepines Screen Pos NEGATIVE Urine Cocaine Screen Neg NEGATIVE Urine Cannabinoids Screen Neg NEGATIVE Plasma/Serum Blood Alcohol 3.6 <10 mg/dL Assessment Status epileptics Grand mal seizure Coma Status epileptics Postictal confusion Metabolic/toxic encephalopathy Plan/Recommendation Monitoring Supportive treatment ICU care Depakote level Keppra level EEG MRI head Stabilize vitals Respiratory support/vent management Oxygen Keppra 1000 mg IV b.i.d. DVT prophylax/Lovenox Ativan for seizure breakthrough More recommendation per clinical course Progress: Guarded This medical document was created using an electronic medical record system with [employer] dictation system. Although this document has been carefully reviewed, there may still be some phonetic and typographical errors. These areas are purely typographical due to imperfections of the software programs, and do not reflect any compromise in the patient's medical care. Plan discussed with: Other DOMENIC SHIPMAN MD Jun 06, 2025 20:50
[2025-06-06] MEDS ORDERED: MIDAZOLAM HCL 2MG/2ML 2ml VIAL (1mg/ml) IV PRN (22:00)
[2025-06-06] MEDS: VALPROATE INJ 500 MG in SODIUM CHL 0.9% 100 ML IV SCH (23:28)
[2025-06-07] VITALS (105 sets, daily range): BP systolic 105–178; BP diastolic 66–107; PULSE 66–91; RESP 14–26; TEMP 97.7–99.9; O2SAT 95–100
--- NOTE | 2025-06-07 00:22 | DVH ---
CHEST RADIOGRAPH Indication: SOB Technique: Single frontal view of the chest was obtained COMPARISON: XY CHEST PORTABLE on DOS: 06/06/25, XY CHEST XRAY 1 VIEW on DOS: 06/06/25 FINDINGS: Lines and Tubes: Slight interval advancement of endotracheal tube such that the tip now projects appr oximately 2.3 cm above the level of the juan j. Remaining lines and tubes unchanged. Lungs: Minimal left basilar pulmonary airspace disease. Pleura: No effusion. No pneumothorax. Cardiomediastinal contours: Unremarkable Bones: Unremarkable IMPRESSION: 1. Minimal left basilar pulmonary airspace disease. 2. Slight interval advancement of endotracheal tube as above with remaining lines and tubes unchanged .
[2025-06-07 05:39] LABS: Hemoglobin 11.4 g/dL (12.2-16.2); Nucleated Red Blood Cells % 0.1 %
[2025-06-07 05:40] LABS: Hematocrit 33.4 % (36.0-46.0); Mean Corpuscular Hemoglobin 34.7 pg (28.0-32.0); Mean Corpuscular Volume 101.6 fL (80.0-100.0)
[2025-06-07 05:45] LABS: INR 1.04 (0.9-1.15); Partial Thromboplastin Time 31.3 SEC (24.5-34.5); Prothrombin Time 11.0 sec (9.3-11.8)
[2025-06-07 05:46] LABS: Anion Gap 11 (5-15); Carbon Dioxide 25 mmol/L (20-31); Potassium 4.1 mmol/L (3.5-5.1); Sodium 143 mmol/L (136-145)
[2025-06-07 05:48] LABS: Calcium 9.3 mg/dL (8.7-10.4)
[2025-06-07 05:49] LABS: Chloride 107 mmol/L (98-107)
[2025-06-07 05:52] LABS: Glucose 97 mg/dL (74-106)
[2025-06-07 05:53] LABS: BUN/Creatinine Ratio 9.1 (10.0-20.0); Blood Urea Nitrogen 7 mg/dL (9-23); Magnesium 1.7 mg/dL (1.6-2.6)
[2025-06-07] MEDS: hydrALAZINE HCL 20 MG/ML VL IV SCH (06:26)
[2025-06-07 06:41] LABS: Base Excess 0.1 mmol/L (-2.0-3.0)
[2025-06-07] MEDS ORDERED: VANCOMYCIN PER PHARMACY 0 MG IV SCH (09:00)
[2025-06-07] MEDS: VANCOMYCIN 1GM/200ML PM 250 ML IV SCH (09:15)
--- NOTE | 2025-06-07 09:26 | DVHPN2 ---
Progress Note - Dictate Date Seen: Jun 07, 2025 Medical Necessity Reason Pt with a Central, PICC or Fol: No Subjective Ms. Sol is a 74 years old female with a history of seizure disorder, she was brought to the [facility] by her roommate on 06/06/25 with a chief company of seizure. Apparently the patient has had seizure activity once every 30-40 seconds, about 45 seconds each in the ER, she had 70 witnessed seizure activity (Dr. Vickie Angulo's note dated 06/06/25). I have seen and examined the patient, I have discussed with her nurse, and resident, no seizure activity past she is intubated, sedated, nonresponsive stroke painful stimuli A talked to her father at [phone], he related the patient has a seizure disorder for 5-6 years without known etiology, but he did not know who is her doctor, and the other information, but he relates the patient was treated at the [facility] before According to our external medical history, she filled lacosamide 200 mg b.i.d. , Keppra 500 mg b.i.d., valproic acid 1500 mg/day, last time she had this medication field was 04/26/2025, Propofol 40 mcg/minute, Versed 13 mg per hour [phone], no answer. [phone], no answer. [phone], no answer. UDS, 06/06/2025: Benzo, opiates Plasma alcohol, 06/06/25: 3.6 Valproic acid, 06/07/2025: 39.4 Keppra, 06/06/2025: ABG, 06/06/2025 0290: Unremarkable. 05/28/2025 0614: Compensated metabolic acidosis Urinalysis, 06/06/2025: WBC:, one, urine leukocyte esterase: Negative WBC/HB/PLT/MCV, 06/06/2025: 5.4/11.3/285/101 CMP, 06/06/2025: Unremarkable HCO3, 05/28/2025 0032: 24, 06/06/25 1150: 24 Folic acid, : 16 CT head, 06/06/2025: No acute intracranial abnormality. vital signs Vital Sign Date Time Temp Pulse Resp B/P (MAP) Pulse Ox O2 Delivery O2 Flow Rate FiO2 06/07/25 09:06 83 17 121/77 (92) 100 30 06/07/25 08:00 98.4 98.4 06/07/25 06:00 Mechanical Ventilator+ 06/06/25 01:00 5 Total Intake and Output 06/06/25 06/06/25 06/07/25 15:00 23:00 07:00 Intake Total 349.688 ml 997.92 ml 678.68 ml Output Total 2550 ml 1830 ml Balance 349.688 ml -1552.08 ml -1151.32 ml medications Current Medications Medications Dose Ordered Sig/La Route Start Time Stop Time Status Last Admin Dose Admin Propofol 100 ml @ 2.124 mls/ hr Q24H IV 06/06/25 01:30 06/07/25 03:01 21.24 MLS/HR Midazolam HCl 50 ml @ 1 mls/hr Q24H IV 06/06/25 02:15 06/07/25 03:41 15 MLS/HR Nitroglycerin 0.4 mg Q5MINP PRN SL 06/06/25 04:45 Morphine Sulfate 2 mg Q30M PRN IV 06/06/25 04:45 Pantoprazole Sodium 40 mg DAILY IV 06/06/25 10:00 06/06/25 08:58 40 MG Levetiracetam 100 ml @ 400 mls/hr BID IV 06/06/25 10:00 06/06/25 21:22 400 MLS/HR Lorazepam 1 mg Q5MINP PRN IV 06/06/25 10:00 Enoxaparin Sodium 40 mg DAILY SC 06/07/25 10:00 Enteral Nutritional Formula 1,000 ml 30ML/HR GT 06/06/25 16:30 Lacosamide 200 mg BID PO 06/07/25 10:00 Valproate Sodium 500 mg/Sodium Chloride 105 ml @ 105 mls/hr Q8H IV 06/06/25 22:00 06/07/25 06:26 105 MLS/HR Midazolam HCl 1 mg ONCE PRN IV 06/06/25 22:00 Hydralazine HCl 10 mg Q6HR IV 06/07/25 06:00 06/07/25 06:26 10 MG Piperacillin Sod/ Tazobactam Sod 100 ml @ 25 mls/hr Q8HR IV 06/07/25 14:00 UNV Vancomycin HCl 0 ml @ 0 mls/hr UD IV 06/07/25 09:00 UNV Vancomycin HCl 250 ml @ 250 mls/hr Q1H IV 06/07/25 09:15 06/07/25 11:14 UNV objective The patient is well-nourished and well-developed with no distress. The patient is intubated MENTAL STATUS: Subjective CRANIAL NERVES: Pupils are equal, round and reactive.There are corneal reflexes and doll's eyes phenomenon. No signs of facial weakness. There are gagging or coughing reflexes SENSATION: Responses to pain stimuli. MOTOR: Normal tone in the upper and lower extremity. Normal muscle bulk. No fasciculations. No spontaneous movement. REFLEXES: Deep tendon reflexes are symmetrical. No pathological reflexes. CEREBELLAR/COORDINATION: Deferred GAIT/STATION: deferred laboratory and microbiology Laboratory Tests 06/07/25 04:45 Test 06/07/25 04:45 Range/Units Serum Glucose 97 74-106 mg/dL Problem List Status epileptics Grand mal seizure Coma Status epileptics Postictal confusion Metabolic/toxic encephalopathy Assessment/Plan Monitoring Supportive treatment ICU care Depakote level Keppra level EEG MRI head Stabilize vitals Respiratory support/vent management Oxygen Keppra 1000 mg IV b.i.d. DVT prophylax/Lovenox Ativan for seizure breakthrough More recommendation per clinical course Information release from the [facility] [place] This medical document was created using an electronic medical record system with [employer] computerized dictation system. Although this document has been carefully reviewed, there may still be some phonetic and typographical errors. These areas are purely typographical due to imperfections of the software programs, and do not reflect any compromise in the patient's medical care. Prognosis Guarded Plan discussed with: Other Critical Care Time(min): 40 DOMENIC SHIPMAN MD Jun 07, 2025 09:26
[2025-06-07] MEDS: LACOSAMIDE 50 MG TAB PO SCH (09:54)
[2025-06-07] MEDS: ENOXAPARIN SOD 40 MG/0.4 ML SYRINGE SC SCH (09:54)
--- NOTE | 2025-06-07 10:18 | DVHPNRES ---
Progress Note Date Seen: Jun 07, 2025 Resident Creating Document: BIB MCNAIR RESIDENT Medical Necessity Reason Pt with a Central, PICC or Fol: No Subjective Review of Systems Patient is a 34-year-old female with a medical history of seizure disorder was brought to the ED by his roommate who stated that patient was at a alliance party when she started having seizures in the room following which the patient was brought to the emergency department. As per the records from the ED physician patient had minimum of 70 seizures witnessed lasting approximately 45 seconds and happening every other minute following which patient was given Ativan and multiple rounds of Versed and had to be intubated for airway protection. As reported patient had been intubated in the past for her seizures and reported that last seizure was yesterday and that she has been taking her Keppra as prescribed. Talking to the father Mr. Ko, he reported with the patient is living by her on and was . He reports that the patient has got seizure disorder since the last 3 years. She has gotten intubated before for breakthrough seizures and was admitted in the [facility]. Medical history: seizure disorder Surgical history: Unknown Gynecological history: Unknown Social history: Unknown Home medications: As per the records from medication reconciliation patient is on lacosamide 200 mg b.i.d., Keppra 500 mg b.i.d., divalproex 250 mg b.i.d. Review of systems Patient is seen and examined at the bedside Sedated with propofol and midazolam, weaning down sedation On minimal ventilator settings, maintaining saturation 100% Patient did have fever up to 99.9 degree F following which blood cultures, urine cultures, sputum cultures were drawn and patient was started empirically on vancomycin and ceftriaxone Patient had a urine output of about 1750 ml overnight, no bowel movements. Patient is going to undergo EEG today as per Neurology ABG showing mixed respiratory and metabolic alkalosis Objective vital signs Vital Sign Date Time Temp Pulse Resp B/P (MAP) Pulse Ox O2 Delivery O2 Flow Rate FiO2 06/07/25 09:15 77 16 127/87 (100) 100 06/07/25 09:06 30 06/07/25 08:00 98.4 98.4 06/07/25 06:00 Mechanical Ventilator+ 06/06/25 01:00 5 Total Intake and Output 06/06/25 06/06/25 06/07/25 15:00 23:00 07:00 Intake Total 349.688 ml 997.92 ml 678.68 ml Output Total 2550 ml 1830 ml Balance 349.688 ml -1552.08 ml -1151.32 ml medications Current Medications Medications Dose Ordered Sig/La Route Start Time Stop Time Status Last Admin Dose Admin Propofol 100 ml @ 2.124 mls/ hr Q24H IV 06/06/25 01:30 06/07/25 03:01 21.24 MLS/HR Midazolam HCl 50 ml @ 1 mls/hr Q24H IV 06/06/25 02:15 06/07/25 03:41 15 MLS/HR Nitroglycerin 0.4 mg Q5MINP PRN SL 06/06/25 04:45 Morphine Sulfate 2 mg Q30M PRN IV 06/06/25 04:45 Pantoprazole Sodium 40 mg DAILY IV 06/06/25 10:00 06/07/25 09:54 40 MG Levetiracetam 100 ml @ 400 mls/hr BID IV 06/06/25 10:00 06/07/25 09:54 400 MLS/HR Lorazepam 1 mg Q5MINP PRN IV 06/06/25 10:00 Enoxaparin Sodium 40 mg DAILY SC 06/07/25 10:00 06/07/25 09:54 40 MG Enteral Nutritional Formula 1,000 ml 30ML/HR GT 06/06/25 16:30 Lacosamide 200 mg BID PO 06/07/25 10:00 06/07/25 09:54 200 MG Valproate Sodium 500 mg/Sodium Chloride 105 ml @ 105 mls/hr Q8H IV 06/06/25 22:00 06/07/25 06:26 105 MLS/HR Midazolam HCl 1 mg ONCE PRN IV 06/06/25 22:00 Hydralazine HCl 10 mg Q6HR IV 06/07/25 06:00 06/07/25 06:26 10 MG Piperacillin Sod/ Tazobactam Sod 100 ml @ 25 mls/hr Q8HR IV 06/07/25 14:00 Vancomycin HCl 0 ml @ 0 mls/hr UD IV 06/07/25 09:00 UNV Vancomycin HCl 250 ml @ 250 mls/hr Q1H IV 06/07/25 09:15 06/07/25 11:14 06/07/25 09:15 250 MLS/HR Examination Constitutional: Patient is sedated with Versed and propofol with a RASS -4 and is on mechanical ventilation Gen - no pallor, no icterus, no cyanosis, no clubbing, no LAD, no edema . Skin - Patients skin is warm and dry. HEENT - normocephalic, atraumatic, moist mucous membranes. Neck - no LAD, no JVD Pulmonary - B/L equal breath sounds, no rales, no wheezing cardiovascular - regular S1,S2 heard, no added sounds, no murmurs heard. peripheral pulses normal radial 2+, pedal 1+. capillary refill normal >3 secs. GI - soft abdomen. Bowel sounds normoactive Neurological - patient is sedated with a RASS of-4 and on mechanical ventilation laboratory and microbiology Laboratory Tests 06/07/25 04:45 Test 06/07/25 04:45 Range/Units Serum Glucose 97 74-106 mg/dL Problem List/Assessment/Plan Problem List/Assessment/Plan Neurology Acute metabolic encephalopathy likely due to seizures Status epilepticus History of seizure disorder Possible poor Medication noncompliance mechanical ventilation - Keppra 1000 mg b.i.d. IV - sedation with propofol and Versed. 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 Code status: Full code Records to be obtained from [facility] Critical care time spent excluding procedures 61 mins Plan discussed with Dr. Smith Plan discussed with: Other (mother, MEAGAN [place] ) My Orders My Orders Orders - BIB MCNAIR RESIDENT Procedure Category Date Status Time Chest Portable XY 06/06/25 Resulted 12:29 Nutritional PHA 06/06/25 In Process Supplements (Jevity 16:30 Chest Xray 1 View XY 06/07/25 Resulted 04:00 Abg W/ Co-Ox RT 06/07/25 Logged 04:00 Respiratory Culture DELANEY 06/07/25 Logged W/ Gs 08:58 Blood Culture DELANEY 06/07/25 Logged 08:58 Urine Bacterial DELANEY 06/07/25 Logged Culture 08:58 Piperacillin-Tazob PHA 06/07/25 In Process 3.375gm (Zosyn 3.375g 14:00 Vancomycin Per PHA 06/07/25 Pending Pharmacy 09:00 Vancomycin 1gm/200ml PHA 06/07/25 In Process Pm 09:15 Date of Service: Jun 07, 2025 Billing Provider: ERICA SMITH MD Common Visit Codes: [id number] CARE 30-74 MIN BIB MCNAIR RESIDENT Jun 07, 2025 10:18 ERICA SMITH MD Jun 08, 2025 12:55
[2025-06-07] MEDS: cefTRIAXone 1GM/50ML D5W 50 ML IV ONE (11:30)
[2025-06-07] MEDS ORDERED: PIPERACILLIN-TAZOB 3.375GM 100 ML IV SCH (14:00)
--- NOTE | 2025-06-07 14:43 | DVH ---
Date: 06/07/2025 02:02 PM Examination: XY KUB ABDOMEN SINGLE VIEW History: MRI SAFETY Comparison: None TECHNIQUE: Frontal views of the abdomen was obtained. FINDINGS: Bowel gas pattern is unremarkable. Battery pack overlying the left lower quadrant. Nasogastric tube within the stomach. The lung bases are unremarkable. No acute osseous abnormality identified. IMPRESSION: Nonobstructive bowel gas pattern.
[2025-06-07] MEDS: VANCOMYCIN 1GM/200ML PM 200 ML IV SCH (18:05)
[2025-06-08] VITALS (106 sets, daily range): BP systolic 93–160; BP diastolic 50–109; PULSE 55–106; RESP 13–37; TEMP 96.1–100.2; O2SAT 100
[2025-06-08 05:26] LABS: Hematocrit 31.2 % (36.0-46.0); Hemoglobin 10.7 g/dL (12.2-16.2)
[2025-06-08 05:29] LABS: Mean Corpuscular Hemoglobin 35.0 pg (28.0-32.0); Mean Corpuscular Volume 101.8 fL (80.0-100.0); Nucleated Red Blood Cells % 0.0 %
[2025-06-08 05:35] LABS: Anion Gap 10 (5-15); Carbon Dioxide 25 mmol/L (20-31); Potassium 3.7 mmol/L (3.5-5.1); Sodium 144 mmol/L (136-145)
[2025-06-08 05:36] LABS: Calcium 8.9 mg/dL (8.7-10.4)
--- NOTE | 2025-06-08 05:36 | DVH ---
CHEST RADIOGRAPH Indication: mechanical ventilator Technique: Single frontal view of the chest was obtained COMPARISON: XY CHEST XRAY 1 VIEW on DOS: 06/07/25, XY CHEST PORTABLE on DOS: 06/06/25, XY CHEST XRAY 1 VIEW on DOS: 06/06/25 FINDINGS: Lines and Tubes: Slight interval retraction of the endotracheal tube such that the tip now projects a pproximately 3.8 cm above the level of the juan j. Remaining lines and tubes unchanged. Lungs: New mild diffuse opacification of the right hemithorax. Small left pleural effusion and left b asilar pulmonary airspace disease. Pleura: No effusion. No pneumothorax. Cardiomediastinal contours: Unremarkable Bones: Unremarkable IMPRESSION: 1. New mild diffuse right hemithoracic opacification. 2. Small left pleural effusion and left basilar pulmonary airspace disease. 3. Lines and tubes unchanged.
[2025-06-08 05:41] LABS: BUN/Creatinine Ratio 9.8 (10.0-20.0); Glucose 86 mg/dL (74-106)
[2025-06-08 05:42] LABS: Magnesium 2.0 mg/dL (1.6-2.6)
[2025-06-08 05:56] LABS: Blood Urea Nitrogen 6 mg/dL (9-23); Chloride 109 mmol/L (98-107)
[2025-06-08 06:04] LABS: Base Excess -0.6 mmol/L (-2.0-3.0)
[2025-06-08] MEDS ORDERED: ACETAMINOPHEN 325 MG TAB PO PRN (08:30)
[2025-06-08] MEDS: cefTRIAXone 1GM/50ML D5W 50 ML IV SCH (08:40)
[2025-06-08] MEDS: DEXMEDETOMIDINE HCL IN D5W 100 ML IV SCH ×2 (08:45→13:00)
--- NOTE | 2025-06-08 09:53 | DVHPN2 ---
Progress Note - Dictate Date Seen: Jun 08, 2025 Medical Necessity Reason Pt with a Central, PICC or Fol: No Subjective MsMary Sol is a 74 years old female with a history of seizure disorder, she was brought to the [facility] by her roommate on 06/06/25 with a chief company of seizure. Apparently the patient has had seizure activity once every 30-40 seconds, about 45 seconds each in the ER, she had 70 witnessed seizure activity (Dr. Vickie Angulo's note dated 06/06/25). I have seen and examined the patient, I have discussed with her nurse, no seizure activity. She is intubated, sedated, but there is spontaneous movement in the head and hands. She is nonresponsive to verbal stimuli Propofol 20 mcg/minute, Precedex: 0.2 mics per kg per hour UDS, 06/06/2025: Benzo, opiates Plasma alcohol, 06/06/25: 3.6 Valproic acid, 06/07/2025: 39.4 Keppra, 06/06/2025: ABG, 06/06/2025 0290: Unremarkable. 05/28/2025 0614: Compensated metabolic acidosis Urinalysis, 06/06/2025: WBC:, one, urine leukocyte esterase: Negative WBC/HB/PLT/MCV, 06/06/2025: 5.4/11.3/285/101 CMP, 06/06/2025: Unremarkable HCO3, 05/28/2025 0032: 24, 06/06/25 1150: 24 Folic acid, : 16 CT head, 06/06/2025: No acute intracranial abnormality. vital signs Vital Sign Date Time Temp Pulse Resp B/P (MAP) Pulse Ox O2 Delivery O2 Flow Rate FiO2 06/08/25 08:15 94 20 155/98 (117) 100 06/08/25 08:00 Mechanical Ventilator+ 30 30 06/08/25 08:00 99.7 99.7 Total Intake and Output 06/07/25 06/07/25 06/08/25 15:00 23:00 07:00 Intake Total 465.804 ml 646.944 ml 452.820 ml Output Total 1820 ml 1420 ml Balance 465.804 ml -1173.056 ml -967.180 ml medications Current Medications Medications Dose Ordered Sig/La Route Start Time Stop Time Status Last Admin Dose Admin Propofol 100 ml @ 2.124 mls/ hr Q24H IV 06/06/25 01:30 06/08/25 05:18 16.992 MLS/HR Midazolam HCl 50 ml @ 1 mls/hr Q24H IV 06/06/25 02:15 06/08/25 05:19 4 MLS/HR Nitroglycerin 0.4 mg Q5MINP PRN SL 06/06/25 04:45 Morphine Sulfate 2 mg Q30M PRN IV 06/06/25 04:45 Pantoprazole Sodium 40 mg DAILY IV 06/06/25 10:00 06/07/25 09:54 40 MG Levetiracetam 100 ml @ 400 mls/hr BID IV 06/06/25 10:00 06/07/25 21:28 400 MLS/HR Lorazepam 1 mg Q5MINP PRN IV 06/06/25 10:00 Enoxaparin Sodium 40 mg DAILY SC 06/07/25 10:00 06/07/25 09:54 40 MG Enteral Nutritional Formula 1,000 ml 30ML/HR GT 06/06/25 16:30 Lacosamide 200 mg BID PO 06/07/25 10:00 06/07/25 21:29 200 MG Valproate Sodium 500 mg/Sodium Chloride 105 ml @ 105 mls/hr Q8H IV 06/06/25 22:00 06/08/25 05:38 105 MLS/HR Midazolam HCl 1 mg ONCE PRN IV 06/06/25 22:00 Hydralazine HCl 10 mg Q6HR IV 06/07/25 06:00 06/08/25 06:30 10 MG Vancomycin HCl 0 ml @ 0 mls/hr UD IV 06/07/25 09:00 Ceftriaxone Sodium 50 ml @ 100 mls/hr DAILY@09 IV 06/08/25 09:00 06/08/25 08:40 100 MLS/HR Vancomycin HCl 200 ml @ 200 mls/hr Q8H IV 06/07/25 18:00 06/08/25 01:35 200 MLS/HR Acetaminophen 650 mg Q6HP PRN PO 06/08/25 08:30 objective The patient is well-nourished and well-developed with no distress. The patient is intubated MENTAL STATUS: Subjective CRANIAL NERVES: Pupils are equal, round and non- reactive, small. There are corneal reflexes and doll's eyes phenomenon. No signs of facial weakness. There are gagging or coughing reflexes SENSATION: Responses to pain stimuli. MOTOR: Normal tone in the upper and lower extremity. Normal muscle bulk. No fasciculations. Spontaneous movement noticed in the hands REFLEXES: Deep tendon reflexes are symmetrical. No pathological reflexes. CEREBELLAR/COORDINATION: Deferred GAIT/STATION: deferred laboratory and microbiology Laboratory Tests 06/08/25 04:40 Test 06/08/25 04:40 Range/Units Serum Glucose 86 74-106 mg/dL Problem List Status epileptics Grand mal seizure Coma Status epileptics Postictal confusion Metabolic/toxic encephalopathy Assessment/Plan Monitoring Supportive treatment ICU care Keppra level EEG MRI head, (she has a stimulate) Stabilize vitals Respiratory support/vent management Oxygen Keppra 1000 mg IV b.i.d. DVT prophylax/Lovenox Ativan for seizure breakthrough More recommendation per clinical course Information release from the [facility] [place] This medical document was created using an electronic medical record system with idio dictation system. Although this document has been carefully reviewed, there may still be some phonetic and typographical errors. These areas are purely typographical due to imperfections of the software programs, and do not reflect any compromise in the patient's medical care. Prognosis poor Dietary Evaluation Review Comments: 1) TF Vital High Protein @ 50ml/hr x 24hr (goal). Start @ 20ml/hr, increase 10ml/hr Q4H until goal is reached. TF @ goal volume along with Propofol provide 1699 kcal (100% energy needs), 105 gm protein (100% protein needs), 1003 ml free water. 2) Water flush 180ml Q6H if allowed, adjust PRN 3) TPN if NPO >7 days 4) Monitor NPO status, lab values, wt trend, I/O Expected Outcomes/Goals: To meet >75% estimated needs Fu 2-3 days Plan discussed with: Other Critical Care Time(min): 30 DOMENIC SHIPMAN MD Jun 08, 2025 09:53
[2025-06-08] MEDS: VANCOMYCIN 1.25GM/250ML 250 ML IV SCH (18:00)
--- NOTE | 2025-06-08 18:53 | DVHPNRES ---
Progress Note Date Seen: Jun 08, 2025 Resident Creating Document: BIB MCNAIR RESIDENT Medical Necessity Reason Pt with a Central, PICC or Fol: No Subjective Review of Systems Patient is a 34-year-old female with a medical history of seizure disorder was brought to the ED by his roommate who stated that patient was at a alliance party when she started having seizures in the room following which the patient was brought to the emergency department. As per the records from the ED physician patient had minimum of 70 seizures witnessed lasting approximately 45 seconds and happening every other minute following which patient was given Ativan and multiple rounds of Versed and had to be intubated for airway protection. As reported patient had been intubated in the past for her seizures and reported that last seizure was yesterday and that she has been taking her Keppra as prescribed. Talking to the father Mr. Ko, he reported with the patient is living by her on and was . He reports that the patient has got seizure disorder since the last 3 years. She has gotten intubated before for breakthrough seizures and was admitted in the [facility]. Medical history: seizure disorder Surgical history: Unknown Gynecological history: Unknown Social history: Unknown Home medications: As per the records from medication reconciliation patient is on lacosamide 200 mg b.i.d., Keppra 500 mg b.i.d., divalproex 250 mg b.i.d. Review of systems Patient is seen and examined at the bedside Weaning off off sedation On minimal ventilator settings, maintaining saturation 100% Patient did have fever up to 100.2 degree F following which blood cultures, urine cultures, sputum cultures were drawn and patient was started empirically on vancomycin and ceftriaxone Patient had a urine output of about 30-40 over last 24 hours, no bowel movements. EEG done yesterday Objective vital signs Vital Sign Date Time Temp Pulse Resp B/P (MAP) Pulse Ox O2 Delivery O2 Flow Rate FiO2 06/08/25 18:00 30 06/08/25 18:00 59 06/08/25 18:00 16 100 Mechanical Ventilator+ 06/08/25 18:00 115/81 06/08/25 16:00 97.7 97.7 Total Intake and Output 06/07/25 06/07/25 06/08/25 14:59 22:59 06:59 Intake Total 577.052 ml 609.936 ml 501.952 ml Output Total 1820 ml 1420 ml Balance 577.052 ml -1210.064 ml -918.048 ml medications Current Medications Medications Dose Ordered Sig/La Route Start Time Stop Time Status Last Admin Dose Admin Propofol 100 ml @ 2.124 mls/ hr Q24H IV 06/06/25 01:30 06/08/25 05:18 16.992 MLS/HR Midazolam HCl 50 ml @ 1 mls/hr Q24H IV 06/06/25 02:15 06/08/25 05:19 4 MLS/HR Nitroglycerin 0.4 mg Q5MINP PRN SL 06/06/25 04:45 Morphine Sulfate 2 mg Q30M PRN IV 06/06/25 04:45 Pantoprazole Sodium 40 mg DAILY IV 06/06/25 10:00 06/08/25 09:49 40 MG Levetiracetam 100 ml @ 400 mls/hr BID IV 06/06/25 10:00 06/08/25 09:59 400 MLS/HR Lorazepam 1 mg Q5MINP PRN IV 06/06/25 10:00 Enoxaparin Sodium 40 mg DAILY SC 06/07/25 10:00 06/08/25 09:49 40 MG Enteral Nutritional Formula 1,000 ml 30ML/HR GT 06/06/25 16:30 Lacosamide 200 mg BID PO 06/07/25 10:00 06/08/25 09:49 200 MG Valproate Sodium 500 mg/Sodium Chloride 105 ml @ 105 mls/hr Q8H IV 06/06/25 22:00 06/08/25 14:21 105 MLS/HR Midazolam HCl 1 mg ONCE PRN IV 06/06/25 22:00 Hydralazine HCl 10 mg Q6HR IV 06/07/25 06:00 06/08/25 06:30 10 MG Vancomycin HCl 0 ml @ 0 mls/hr UD IV 06/07/25 09:00 Ceftriaxone Sodium 50 ml @ 100 mls/hr DAILY@09 IV 06/08/25 09:00 06/08/25 08:40 100 MLS/HR Acetaminophen 650 mg Q6HP PRN PO 06/08/25 08:30 Vancomycin HCl 250 ml @ 200 mls/hr Q8H IV 06/08/25 18:00 06/08/25 18:00 200 MLS/HR Examination Constitutional: Patient being weaned off sedation, currently RASS -3 and is on mechanical ventilation Gen - no pallor, no icterus, no cyanosis, no clubbing, no LAD, no edema . Skin - Patients skin is warm and dry. HEENT - normocephalic, atraumatic, moist mucous membranes. Neck - no LAD, no JVD Pulmonary - B/L equal breath sounds, no rales, no wheezing cardiovascular - regular S1,S2 heard, no added sounds, no murmurs heard. peripheral pulses normal radial 2+, pedal 1+. capillary refill normal >3 secs. GI - soft abdomen. Bowel sounds normoactive Neurological - patient is sedated with a RASS of-3 and on mechanical ventilation laboratory and microbiology Laboratory Tests 06/08/25 08:59 06/08/25 04:40 Test 06/08/25 04:40 Range/Units Serum Glucose 86 74-106 mg/dL Microbiology Date/Time Source Procedure Growth Status 06/07/25 12:25 Voided Urine Urine Culture - Preliminary Resulted 06/07/25 10:50 Blood Blood Culture - Preliminary NO GROWTH AFTER 24 HOURS OF INCUBATION. Resulted 06/06/25 21:11 Nose MRSA Screen - Final Complete 06/06/25 01:27 Sputum Gram Stain - Final Resulted 06/06/25 01:27 Sputum Respiratory Culture - Preliminary Resulted Problem List/Assessment/Plan Problem List/Assessment/Plan Neurology Acute metabolic encephalopathy likely due to seizures Status epilepticus History of seizure disorder Possible poor Medication noncompliance mechanical ventilation - Keppra 1000 mg b.i.d. IV - sedation with propofol and Versed. 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 Code status: Full code Records to be obtained from [facility] Critical care time spent excluding procedures 63 mins Plan discussed with Dr. Smith Plan discussed with: Other (Mother, RN Bonita) My Orders My Orders Orders - BIB MCNAIR Procedure Category Date Status Time Chest Portable XY 06/08/25 Resulted 04:00 Acetaminophen Tablet PHA 06/08/25 In Process (Tylenol Tablet) 08:30 Dexmedetomidine Hcl PHA 06/08/25 In Process In D5w (Precedex) 08:30 Vancomycin PHA 06/08/25 In Process 1.25gm/250ml 18:00 Vancomycin,Trough LAB 06/09/25 Verified 17:00 Creatinine LAB 06/09/25 Verified 04:00 Vancomycin Per DOE 06/08/25 In Process Pharmacy Protoc 18:00 Dietary Evaluation Review Comments: 1) TF Vital High Protein @ 50ml/hr x 24hr (goal). Start @ 20ml/hr, increase 10ml/hr Q4H until goal is reached. TF @ goal volume along with Propofol provide 1699 kcal (100% energy needs), 105 gm protein (100% protein needs), 1003 ml free water. 2) Water flush 180ml Q6H if allowed, adjust PRN 3) TPN if NPO >7 days 4) Monitor NPO status, lab values, wt trend, I/O Expected Outcomes/Goals: To meet >75% estimated needs Fu 2-3 days Date of Service: Jun 08, 2025 Billing Provider: ERICA SMITH MD Common Visit Codes: [id number] CARE 30-74 MIN BIB MCNAIR Jun 08, 2025 18:53 ERICA SMITH MD Jun 10, 2025 12:32
--- NOTE | 2025-06-08 20:48 | DVHEEG2 ---
Neurology EEG Procedural Note Procedural Note EXAM DATE: 06/07/25 REFERRING DOCTOR: Dr. Shipman TECHNIQUE: Eighteen channels of EEG, 2 channels of EOG, and 1 channel of EKG were recorded using the International 10/20 system. CLINICAL DATA: The patient was referred for an EEG evaluation for the evidence of seizure disorder. MEDICATIONS: See chart BACKGROUND ACTIVITY: The record showed diffuse rhythmic and semirhythmic low- amplitude 13-14 hertz waveforms diffusely over both hemispheres, that was reactive to external stimuli. 0 a few sharply contoured waveform over left hemispheres ACTIVATION: Hyperventilation: Not done Photic Stimulation: Not done Sleep: Stage I & II IMPRESSION: This is a remarkably abnormal EEG, this EEG seen in severe cerebral dysfunction due to metabolic/hypoxic encephalopathy or medication effects, please correlate clinically The sharply contoured left hemisphere waveform were not unequivocally considered epileptiform in nature The EKG channel showed a regular heart rate of 66 per minute[place] [address]. DOMENIC SHIPMAN MD Jun 08, 2025 20:48
[2025-06-08] MEDS: Jevity 1.2 Cal/Fiber 1 Liter GT SCH (22:31)
[2025-06-09] VITALS (75 sets, daily range): BP systolic 92–130; BP diastolic 37–95; PULSE 51–118; RESP 10–28; TEMP 97–99.5; O2SAT 10–100
[2025-06-09 05:08] LABS: Hematocrit 27.4 % (36.0-46.0); Hemoglobin 9.4 g/dL (12.2-16.2); Mean Corpuscular Hemoglobin 34.7 pg (28.0-32.0)
[2025-06-09 05:13] LABS: Mean Corpuscular Volume 100.6 fL (80.0-100.0); Nucleated Red Blood Cells % 0.0 %
[2025-06-09 05:22] LABS: Anion Gap 9 (5-15); Carbon Dioxide 26 mmol/L (20-31); Sodium 144 mmol/L (136-145)
[2025-06-09 05:28] LABS: BUN/Creatinine Ratio 11.6 (10.0-20.0)
[2025-06-09 05:34] LABS: Blood Urea Nitrogen 8 mg/dL (9-23); Calcium 8.5 mg/dL (8.7-10.4); Chloride 109 mmol/L (98-107); Glucose 106 mg/dL (74-106); Potassium 3.4 mmol/L (3.5-5.1)
[2025-06-09 06:03] LABS: Base Excess 1.8 mmol/L (-2.0-3.0)
--- NOTE | 2025-06-09 06:22 | DVH ---
CHEST RADIOGRAPH Indication: on vent Technique: Single frontal view of the chest was obtained COMPARISON: XY CHEST PORTABLE on DOS: 06/08/25, XY CHEST XRAY 1 VIEW on DOS: 06/07/25, XY CHEST PORTABL E on DOS: 06/06/25, XY CHEST XRAY 1 VIEW on DOS: 06/06/25 FINDINGS: Lines and Tubes: Endotracheal tube has been retracted, such that the tip now projects approximately 6 .0 cm above the level of the juan j. Remaining lines and tubes unchanged. Lungs: Stable appearing diffuse increased prominence of the pulmonary vasculature and left basilar pu lmonary airspace disease. Pleura: No effusion. No pneumothorax. Cardiomediastinal contours: Unremarkable Bones: Unremarkable IMPRESSION: 1. Stable appearing diffuse increased prominence of the pulmonary vasculature and left basilar pulmon jj airspace disease. 2. Interval retraction of endotracheal tube as above. Remaining lines and tubes unchanged.
[2025-06-09] MEDS: POTASSIUM CHL 20MEQ/100ML 100 ML IV ONE (08:44)
[2025-06-09 09:08] LABS: Base Excess 1.8 mmol/L (-2.0-3.0)
[2025-06-09] MEDS: MORPHINE SULFATE INJ 2 MG/ml SYRG IV PRN ×2 (10:38→18:54)
[2025-06-09] MEDS: LORazepam 2MG/ML-1ML VIAL IV PRN (13:29)
[2025-06-09] MEDS: levETIRAcetam 1000 mg/100ml 100 ML IV ONE (13:44)
[2025-06-09] MEDS: MORPHINE SULFATE INJ 2 MG/ml SYRG IV ONE (14:14)
--- NOTE | 2025-06-09 16:55 | DVHPNRES ---
Progress Note Date Seen: Jun 09, 2025 Resident Creating Document: BIB MCNAIR RESIDENT Medical Necessity Reason Pt with a Central, PICC or Fol: Yes The following are medically ne: Central Line, Gross Catheter Subjective Review of Systems Patient is a 34-year-old female with a medical history of seizure disorder was brought to the ED by his roommate who stated that patient was at a democrat when she started having seizures in the room following which the patient was brought to the emergency department. As per the records from the ED physician patient had minimum of 70 seizures witnessed lasting approximately 45 seconds and happening every other minute following which patient was given Ativan and multiple rounds of Versed and had to be intubated for airway protection. As reported patient had been intubated in the past for her seizures and reported that last seizure was yesterday and that she has been taking her Keppra as prescribed. Talking to the father Mr. Ko, he reported with the patient is living by her on and was . He reports that the patient has got seizure disorder since the last 3 years. She has gotten intubated before for breakthrough seizures and was admitted in the [facility]. Medical history: seizure disorder Surgical history: Unknown Gynecological history: Unknown Social history: Unknown Home medications: As per the records from medication reconciliation patient is on lacosamide 200 mg b.i.d., Keppra 500 mg b.i.d., divalproex 250 mg b.i.d. Review of systems Patient is seen and examined at the bedside Underwent a successful CPAP trial today and was extubated Postextubation patient had seizure following which she was given 1 dose of Keppra 1000mg and dose was increased to 1500 b.i.d. Passed swallow swallow exam Objective vital signs Vital Sign Date Time Temp Pulse Resp B/P (MAP) Pulse Ox O2 Delivery O2 Flow Rate FiO2 06/09/25 16:00 89 16 121/61 (81) 100 06/09/25 16:00 98.6 98.6 06/09/25 16:00 Nasal Cannula* 2 28 Total Intake and Output 06/08/25 06/08/25 06/09/25 15:00 23:00 07:00 Intake Total 530.519 ml 214.374 ml 291.224 ml Output Total 860 ml 450 ml Balance 530.519 ml -645.626 ml -158.776 ml medications Current Medications Medications Dose Ordered Sig/La Route Start Time Stop Time Status Last Admin Dose Admin Pantoprazole Sodium 40 mg DAILY IV 06/06/25 10:00 06/09/25 08:44 40 MG Lorazepam 1 mg Q5MINP PRN IV 06/06/25 10:00 06/09/25 13:29 1 MG Enoxaparin Sodium 40 mg DAILY SC 06/07/25 10:00 06/09/25 08:50 40 MG Enteral Nutritional Formula 1,000 ml 30ML/HR GT 06/06/25 16:30 06/08/25 22:31 1,000 ML Lacosamide 200 mg BID PO 06/07/25 10:00 06/09/25 08:44 200 MG Valproate Sodium 500 mg/Sodium Chloride 105 ml @ 105 mls/hr Q8H IV 06/06/25 22:00 06/09/25 14:18 105 MLS/HR Hydralazine HCl 10 mg Q6HR IV 06/07/25 06:00 06/08/25 06:30 10 MG Vancomycin HCl 0 ml @ 0 mls/hr UD IV 06/07/25 09:00 Ceftriaxone Sodium 50 ml @ 100 mls/hr DAILY@09 IV 06/08/25 09:00 06/09/25 07:22 100 MLS/HR Acetaminophen 650 mg Q6HP PRN PO 06/08/25 08:30 Vancomycin HCl 250 ml @ 200 mls/hr Q8H IV 06/08/25 18:00 06/09/25 10:37 200 MLS/HR Morphine Sulfate 2 mg Q6HPRN PRN IV 06/09/25 09:45 Levetiracetam 100 ml @ 400 mls/hr BID IV 06/09/25 22:00 Lorazepam 1 mg Q5MINP PRN IV 06/09/25 13:15 Examination Constitutional: Patient extubated and no respiratory distress noted Gen - no pallor, no icterus, no cyanosis, no clubbing, no LAD, no edema . Skin - Patients skin is warm and dry. HEENT - normocephalic, atraumatic, moist mucous membranes. Neck - no LAD, no JVD Pulmonary - B/L equal breath sounds, no rales, no wheezing cardiovascular - regular S1,S2 heard, no added sounds, no murmurs heard. peripheral pulses normal radial 2+, pedal 1+. capillary refill normal >3 secs. GI - soft abdomen. Bowel sounds normoactive Neurological - patient extubated, passed swallow request. Bilateral upper extremity strength 5/5, bilateral lower extremity strength 5/5, no sensory or motor abnormality laboratory and microbiology Laboratory Tests 06/09/25 04:40 Test 06/09/25 04:40 Range/Units Serum Glucose 106 74-106 mg/dL Microbiology Date/Time Source Procedure Growth Status 06/07/25 12:25 Voided Urine Urine Culture - Final Complete 06/07/25 10:50 Blood Blood Culture - Preliminary NO GROWTH AFTER 48 HOURS OF INCUBATION. Resulted 06/06/25 21:11 Nose MRSA Screen - Final Complete 06/06/25 01:27 Sputum Gram Stain - Final Complete 06/06/25 01:27 Sputum Respiratory Culture - Final Complete Problem List/Assessment/Plan Problem List/Assessment/Plan Neurology Acute metabolic encephalopathy likely due to seizures Status epilepticus History of seizure disorder Possible poor Medication noncompliance mechanical ventilation - Keppra 1500 mg b.i.d. 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 Adams. After discussion with Neurology Dr. Cedeño, increase the dose of Keppra to 1500 b.i.d. since patient had a seizure after extubation. Continue close monitoring Plan discussed with: Other (mother, MEAGAN Wilson) My Orders My Orders Orders - BIB MCNAIR RESIDENT Procedure Category Date Status Time Chest Xray 1 View XY 06/09/25 Resulted 04:00 Abg W/ Co-Ox RT 06/09/25 Logged 04:00 Abg W/ Co-Ox RT 06/09/25 Logged 09:05 Extubate DOE 06/09/25 In Process 09:13 Morphine Sulfate PHA 06/09/25 In Process Injection 09:[address] 06/09/25 Logged 10:01 Pt Request For Service PT 06/09/25 Logged 10:01 Regular Diet DIET 06/09/25 Transmitted Lunch Levetiracetam 1500 PHA 06/09/25 In Process Mg/100ml (Levetiracet 22:00 Lorazepam 2mg/Ml Inj PHA 06/09/25 In Process (Ativan Inj) 13:15 Basic Metabolic Panel LAB 06/10/25 Verified 04:00 Complete Blood Count LAB 06/10/25 Verified 04:00 Chest Xray 1 View XY 06/10/25 Verified 04:00 Magnesium LAB 06/10/25 Verified 04:00 Dietary Evaluation Review Comments: 1) TF Vital High Protein @ 50ml/hr x 24hr (goal). Start @ 20ml/hr, increase 10ml/hr Q4H until goal is reached. TF @ goal volume along with Propofol provide 1699 kcal (100% energy needs), 105 gm protein (100% protein needs), 1003 ml free water. 2) Water flush 180ml Q6H if allowed, adjust PRN 3) TPN if NPO >7 days 4) Monitor NPO status, lab values, wt trend, I/O Expected Outcomes/Goals: To meet >75% estimated needs Fu 2-3 days BIB MCNAIR RESIDENT Jun 09, 2025 16:55
[2025-06-09] MEDS: FUROSEMIDE 20 MG/2 ML VIAL IV ONE (17:16)
[2025-06-09] MEDS ORDERED: HYDROcodone-ACET 5/325MG TAB PO PRN (21:30)
[2025-06-09] MEDS: levETIRAcetam 1500 mg/100ml 100 ML IV SCH (22:34)
[2025-06-09] MEDS: HYDROcodone-ACET 5/325MG TAB PO PRN (22:35)
[2025-06-10] VITALS (19 sets, daily range): BP systolic 112–145; BP diastolic 58–99; PULSE 78–114; RESP 11–24; TEMP 97.7–99; O2SAT 93–100
[2025-06-10 05:28] LABS: Anion Gap 10 (5-15); Calcium 8.7 mg/dL (8.7-10.4); Carbon Dioxide 26 mmol/L (20-31)
[2025-06-10 05:32] LABS: Nucleated Red Blood Cells % 0.0 %
[2025-06-10 05:33] LABS: Glucose 102 mg/dL (74-106)
[2025-06-10 05:34] LABS: BUN/Creatinine Ratio 12.4 (10.0-20.0); Blood Urea Nitrogen 11 mg/dL (9-23); Magnesium 1.9 mg/dL (1.6-2.6)
[2025-06-10 05:37] LABS: Chloride 110 mmol/L (98-107); Hematocrit 29.3 % (36.0-46.0); Hemoglobin 10.1 g/dL (12.2-16.2); Mean Corpuscular Hemoglobin 34.8 pg (28.0-32.0); Mean Corpuscular Volume 100.8 fL (80.0-100.0); Potassium 3.2 mmol/L (3.5-5.1); Sodium 146 mmol/L (136-145)
--- NOTE | 2025-06-10 06:20 | DVH ---
CHEST RADIOGRAPH Indication: s/p extubation Technique: Single frontal view of the chest was obtained COMPARISON: XY CHEST XRAY 1 VIEW on DOS: 06/09/25, XY CHEST PORTABLE on DOS: 06/08/25, XY CHEST XRAY 1 V IEW on DOS: 06/07/25, XY CHEST PORTABLE on DOS: 06/06/25, XY CHEST XRAY 1 VIEW on DOS: 06/06/25 FINDINGS: Lines and Tubes: Status post interval extubation and removal of enteric catheter. Right internal jug ular central venous line unchanged. Lungs: Clear Pleura: No effusion. No pneumothorax. Cardiomediastinal contours: Unremarkable Bones: Unremarkable IMPRESSION: 1. No acute disease. 2. Status post interval extubation and removal of enteric catheter. Right IJ central venous catheter unchanged.
[2025-06-10] MEDS: POTASSIUM EFFERVESENT TAB 25 MEQ PO ONE (08:13)
[2025-06-10] MEDS: LORazepam 2MG/ML-1ML VIAL IV PRN (09:39)
--- NOTE | 2025-06-10 11:20 | DVHPN2 ---
Subjective She was extubated yesterday She just had 2 seizures today She is on Keppra and valproic acid and lacosamide Changes from previous H/P or p: Changes Objective Vitals Vital Signs Date Time Temp Pulse Resp B/P (MAP) Pulse Ox O2 Delivery O2 Flow Rate FiO2 06/10/25 10:00 19 100 Room Air* 0 21 06/10/25 10:00 104 124/94 (104) 06/10/25 08:00 98.6 98.6 Intake/Output Intake and Output 06/10/25 06:59 Intake Total 2075.684 ml Output Total 1900 ml Balance 175.684 ml Intake Oral 1050 ml IV Total 1025.684 ml Output Urine Total 1900 ml Stool Total 0 ml # Bowel Movements 1 General Appearance: Alert, Oriented X3, Cooperative, No acute distress Lungs: Clear to auscultation, Normal air movement Cardiovascular: Regular rate, Normal S1 Abdomen: Normal bowel sounds, Soft Extremities: No edema Medications Current Medications Medications Dose Ordered Sig/La Route Start Time Stop Time Status Last Admin Dose Admin Pantoprazole Sodium 40 mg DAILY IV 06/06/25 10:00 06/10/25 09:27 40 MG Enoxaparin Sodium 40 mg DAILY SC 06/07/25 10:00 06/09/25 08:50 40 MG Enteral Nutritional Formula 1,000 ml 30ML/HR GT 06/06/25 16:30 06/08/25 22:31 1,000 ML Lacosamide 200 mg BID PO 06/07/25 10:00 06/10/25 09:27 200 MG Valproate Sodium 500 mg/Sodium Chloride 105 ml @ 105 mls/hr Q8H IV 06/06/25 22:00 06/10/25 05:11 105 MLS/HR Hydralazine HCl 10 mg Q6HR IV 06/07/25 06:00 06/10/25 04:54 10 MG Ceftriaxone Sodium 50 ml @ 100 mls/hr DAILY@09 IV 06/08/25 09:00 06/10/25 08:13 100 MLS/HR Acetaminophen 650 mg Q6HP PRN PO 06/08/25 08:30 Morphine Sulfate 2 mg Q6HPRN PRN IV 06/09/25 09:45 06/10/25 07:21 2 MG Levetiracetam 100 ml @ 400 mls/hr BID IV 06/09/25 22:00 06/10/25 09:27 400 MLS/HR Lorazepam 1 mg Q5MINP PRN IV 06/09/25 13:15 06/10/25 09:39 1 MG Acetaminophen/ Hydrocodone Bitart 1 tab Q6HPRN PRN PO 06/09/25 22:15 06/10/25 04:54 1 TAB Laboratory Results Laboratory Tests 06/10/25 04:45 Chemistry Test 06/10/25 04:45 Calcium Level 8.7 mg/dL (8.7-10.4) Magnesium Level 1.9 mg/dL (1.6-2.6) Urinalysis Test 06/06/25 01:39 Urine Color Light-yellow (Yellow) Urine Clarity Clear (Clear) Urine pH 6.0 (5.0-9.0) Urine Specific [place] 1.015 (1.001-1.035) Urine Protein Negative (Negative) Urine Ketones Negative (Negative) Urine Blood Trace /uL (Negative) H Urine Nitrite Negative (Negative) Urine Bilirubin Negative (Negative) Urine Urobilinogen 2 mg/dL (Negative) H Urine Leukocyte Esterase Negative /uL (Negative) Urine RBC <1 /hpf (0 - 4) Urine Microscopic WBC 1 /HPF (0-5) Urine Squamous Epithelial Cells Few /hpf (<5) Urine Bacteria None seen /hpf (None Seen) Urine Glucose Normal mg/dL (Normal) Microbiology Microbiology Date/Time Source Procedure Growth Status 06/07/25 12:25 Voided Urine Urine Culture - Final Complete 06/07/25 10:50 Blood Blood Culture - Preliminary NO GROWTH AFTER 48 HOURS OF INCUBATION. Resulted 06/06/25 21:11 Nose MRSA Screen - Final Complete 06/06/25 01:27 Sputum Gram Stain - Final Complete 06/06/25 01:27 Sputum Respiratory Culture - Final Complete Assessment/Plan Assessment/Plan Acute metabolic encephalopathy likely due to seizures Status epilepticus History of seizure disorder Possible poor Medication noncompliance Mechanical ventilation, was extubated yesterday Mixed Respiratory alkalosis with metabolic alkalosis Possible aspiration Macrocytic hyperchromic anemia PLAN: Seizures: Keppra, valproate, lacosamide, The patient says she wants to go home however she just had 2 seizures today Hypokalemia: Potassium 3.2 , replaced p.o. Hypomagnesemia: Magnesium 1.9 : Give magnesium IV Keppra 1500 mg twice a day, continue p.o. Valproic acid, increase to 1000 mg twice a day Continue lacosamide Downgrade to telemetry The patient wishes to go home today however I told her that since she just had 2 seizures we need to adjust her home medications and maximize the doses and watch the patient in the hospital for 1 more day Neurology is following Full code Plan discussed with: Patient My Orders Orders - HADLEY EATON MD Procedure Category Date Status Time Transfer Orders XFER 06/10/25 Transmitted 10:53 Date of Service: Jun 10, 2025 Billing Provider: HADLEY EATON MD Common Visit Codes: [id number] CARE 30-74 MIN HADLEY EATON MD Jun 10, 2025 11:20
[2025-06-10] MEDS: MAGNESIUM SULFATE 1GM/100ML 100 ML IV SCH (12:15)
[2025-06-10 12:35] LABS: Hematocrit 29.8 % (36.0-46.0); Hemoglobin 10.1 g/dL (12.2-16.2); Mean Corpuscular Hemoglobin 33.9 pg (28.0-32.0); Mean Corpuscular Volume 100.1 fL (80.0-100.0); Nucleated Red Blood Cells % 0.0 %
[2025-06-10 12:56] LABS: Alanine Aminotransferase 20 U/L (7-40); Albumin 3.8 g/dL (3.2-4.8); Alkaline Phosphatase 54 U/L (46-116); Anion Gap 10 (5-15); BUN/Creatinine Ratio 13.6 (10.0-20.0); Blood Urea Nitrogen 11 mg/dL (9-23); Carbon Dioxide 27 mmol/L (20-31); Glucose 93 mg/dL (74-106); Magnesium 1.8 mg/dL (1.6-2.6); Total Protein 6.1 g/dL (5.7-8.2)
[2025-06-10 13:12] LABS: Bilirubin, Total 0.2 mg/dL (0.2-1.0); Calcium 8.7 mg/dL (8.7-10.4); Chloride 108 mmol/L (98-107); Potassium 3.5 mmol/L (3.5-5.1); Sodium 145 mmol/L (136-145)
[2025-06-10] MEDS ORDERED: levETIRAcetam 500 MG TAB PO SCH (22:00)
[2025-06-10] MEDS ORDERED: VALPROIC ACID 250 MG/5 ML ORAL SOLN PO SCH (22:00)
== END 2025-06-10 18:20 | disposition left against medical advice (07) | DRG 53 ==
LOC: ER 00:20 → OVERFLOW 04:41 → ICU CENTRL 04:42
PROVIDERS: ADMIT Internal Medicine Pulmonary Disease; ATTEND Internal Medicine Pulmonary Disease
PROC: 02HV33Z Insertion of Infusion Device into Superior Vena Cava, Percutaneous Approach (ICD-10-PCS; principal; 2025-06-06)
PROC: 5A1945Z Respiratory Ventilation, 24-96 Consecutive Hours (ICD-10-PCS; 2025-06-06)
PROC: 0BH17EZ Insertion of Endotracheal Airway into Trachea, Via Natural or Artificial Opening (ICD-10-PCS; 2025-06-06)
DX: G40.401 Other generalized epilepsy and epileptic syndromes, not intractable, with status epilepticus (principal); J96.01 Acute respiratory failure with hypoxia; J69.0 Pneumonitis due to inhalation of food and vomit; Z53.29 Procedure and treatment not carried out because of patient's decision for other reasons; D50.9 Iron deficiency anemia, unspecified; E87.4 Mixed disorder of acid-base balance; J45.909 Unspecified asthma, uncomplicated; Z91.148 Patient's other noncompliance with medication regimen for other reason; Z79.899 Other long term (current) drug therapy
CPT/HCPCS: 36415; 36556; 36600; 70450; 71045; 74018; 80048; 80053; 80164; 80202; 80307; 80320; 81001; 82542; 82550; 82565; 82746; 82805; 82962; 83605; 83735; 84100; 84702; 85025; 85610; 85730; 87040; 87070; 87081; 87086; 87205; 92610; 94002; 94003; 95819; 96365; 97110; 97116; 97163; 97530; G0378; J2250; J2470; J2704; J3480

== ENCOUNTER 2025-07-11 03:49 | Inpatient (IN) | payer MEDICAID ==
[~2025-07-11] VITALS: Ht 182.9 cm; Wt 77.0 kg
[2025-07-11] VITALS (43 sets, daily range): BP systolic 114–187; BP diastolic 78–112; PULSE 57–116; RESP 15–36; TEMP 95.5–102.2; O2SAT 92–100
[2025-07-11] MEDS: SODIUM CHLORIDE 0.9% 1,000 ML IV ONE (04:20)
[2025-07-11] MEDS: levETIRAcetam 1000 mg/100ml 200 ML IV ONE (04:20)
[2025-07-11] MEDS: LORazepam 2MG/ML-1ML VIAL ONE (04:22)
--- NOTE | 2025-07-11 04:36 | ED.PDOC ---
HPI (NEURO) HPI Comments 34 y/o F, with a history of seizures, is BIBA for c/c of multiple seizure episodes. Per EMS report, patient's family called after patient was reported to have been en route to her local hospital after experiencing multiple unprovoked and sudden seizure episodes at home when she experienced 2x additional episodes in her vehicle with 1x positive head injury. En route, patient had 3x additional seizure episodes with EMS amidst 7.5mg Versed administration. Upon arrival to ED, patient still actively seizing until receiving 2mg Ativan by ED staff. further history is limited, due to patient's current condition and absence of family/product inspection coordinator historians. Chief Complaint: Seizure Time Seen by MD: 04:20 Primary Care Provider: BARAK Oneal Notes: Nurses Notes, Camera Assembler Notes, Medications, Allergies Information Source: Emergency Med Personnel Mode of Arrival: EMS Severity: Moderate Timing: Hours Duration: Minutes Prehospital treatment: 12 Lead EKG, Accucheck, Door Glass Installer, Treatment (7.5mg Versed) Past Medical History PAST MEDICAL HISTORY: Seizures Surgical History: Denies all surgeries MANAGER PSYCHOLOGY History: No Pertinent MANAGER PSYCHOLOGY History Family History Family History: Reviewed,noncontributory to illness, No family hx of Cancer, No family hx of DM, No family hx of Heart ramy, No family hx of HTN, No family hx ofKidney ramy, No family hx of Liver ramy, No family hx of Lung ramy, No family hx of Stroke Social History Smoker: Non-Smoker Alcohol: Denies ETOH Use Drugs: Denies Drug Use Lives In: Home All Other Systems: Reviewed and Negative (Comprehensive review of systems are negative unless otherwise stated in HPI) Physical Exam General Appearance: No Apparent Distress, Normal HEENT: Normal ENT Inspection, Pharynx Normal, TMs Normal Neck: Full Range of Motion, Non-Tender, Normal, Normal Inspection Respiratory: Chest Non-Tender, Lungs Clear, No Accessory Muscle Use, No Respiratory Distress, Normal Breath Sounds Cardiovascular: No Edema, No JVD, No Murmur, No Gallop, Normal Peripheral Pulses, Regular Rate/Rhythm Breast Exam: Deferred Gastrointestinal: No Organomegaly, Non Tender, No Pulsatile Mass, Normal Bowel Sounds, Soft Genitalia: Deferred Pelvic: Deferred Rectal: Deferred Extremities: No calf tenderness, Normal capillary refill, Normal inspection, Normal range of motion, Non-tender, No pedal edema Musculoskeletal : Apperance: Normal Neurologic: Alert, field software engineer II-XII nml as Tested, No Motor Deficits, Normal Affect, Normal Mood, No Sensory Deficits Cerebellar Function: Normal Reflexes: Normal Skin: Dry, Normal Color, Warm Lymphatic: No Adenopathy Was a procedure done? Was a procedure done?: Yes Sedation Sedation?: Yes Informed consent obtained: No Sedation start time: 05:43 Sedation end time: 05:58 Sedation total time: 15 minutes Central Line Recorder of insertion practice: Director Of Casework Occupation of compress machine operator: Attending Physician Indication: Volume resuscitation, Other (s/p epilepticus) Room prepared for procedure: Yes Director Of Casework performed hand hygien: Yes Maximal sterile barrier precau: Mask/Eye shield, Sterile gown, Cap, Sterlie gloves, Large sterlie drape Skin Preparation: Chlorhexidine gluconate, Alcohol Skin preparation completely dr: Yes Insertion site: Right, Femoral Central line catheter type: [id number] dialysis Number of lumens: 3 Central line exchanged over a: No Antiseptic ointment applied to: No Post Assessment: Chest X-Ray, Proper placement Informed consent obtained: No Risks/benefits/alt described: No Intubation Indication: Altered Mental Status (s/p epilepticus) Prep: No Preoxygenation Pretreated with: Nothing Medicated with: Other (100mg rocuronium; 10mg versed ) Intubation Approach: Orotracheal (8.0) Intubation size: cm (24 at the lip) Informed consent obtained: No Risks/benefits/alt described: No Differential Diagnosis (SZ) Seizure: Hyperventilation, Psychogenic Seizure, Anticonvulsant Withdrawl, CVA/TIA, Drug Ingestion, Hypocalcemia, Hypoglycemia, Hyponatremia, Hypoxemia, Idiopathic, Syncope, Encephalopathy, Epilepsy-Status X-Ray, Labs, Meds, VS Vital Signs Date Time Temp Pulse Resp B/P (MAP) Pulse Ox O2 Delivery O2 Flow Rate FiO2 07/11/25 05:59 94 16 162/118 (133) 100 100 07/11/25 05:56 145/106 07/11/25 05:52 145/106 07/11/25 05:43 145/106 07/11/25 04:45 64 21 98 Room Air* 0 21 07/11/25 04:20 70 07/11/25 04:15 98.2 63 22 133/94 (107) 99 98.2 07/11/25 04:01 98.3 74 25 128/84 98 98.3 Current Medications Medications (Trade) Dose Ordered Sig/La Route Start Time Stop Time Status Last Admin Levetiracetam 200 ml @ 400 mls/hr ONCE ONCE IV 07/11/25 04:15 07/11/25 04:44 DC 07/11/25 04:20 Sodium Chloride 1,000 ml @ 1,000 mls/hr Q1H ONCE IV 07/11/25 04:15 07/11/25 05:14 DC 07/11/25 04:20 Midazolam HCl (Versed Injection) 5 mg ONCE ONCE IV 07/11/25 05:30 07/11/25 05:31 DC 07/11/25 05:44 Midazolam HCl (Versed Injection) 5 mg ONCE ONCE IV 07/11/25 05:45 07/11/25 05:46 DC 07/11/25 05:44 Rocuronium [place] 100 mg ONCE ONCE IV 07/11/25 05:45 07/11/25 05:46 DC 07/11/25 05:43 Propofol 100 ml @ 2.31 mls/hr Q24H IV 07/11/25 05:45 07/11/25 05:56 Time of 1ST Reevaluation: 04:50 Reevaluation 1ST: Unchanged Patient Education/Counseling: Other (patient is postictal ) Family Education/Counseling: No Family Present Departure 1 Departure Time of Disposition: 06:08 (Patient presented in status epilepticus. Patient was emergently intubated and central line placed started on antiepileptics. We will admit patient for further workup) Impression: Primary Impression: Status epilepticus Disposition: ADMITTED INPATIENT Admit to: ICU Condition: Critical Critical Care Note Critical Care Time?: Yes Critical care comment: Status epilepticus Authorized and Performed by: Maite Mary MD Total critical care time: Approximately 117 minutes Due to a high probability of clinically significant, life threatening deterioration, the patient required my highest level of preparedness to intervene emergently and I personally spent this critical care time directly and personally managing the patient. This critical care time included obtaining a history; examining the patient; pulse oximetry; ordering and review of studies; arranging urgent treatment with development of a management plan; evaluation of patient's response to treatment; frequent reassessment; and, discussions with other providers. This critical care time was performed to assess and manage the high probability of imminent, life-threatening deterioration that could result in multi-organ failure. It was exclusive of separately billable procedures and treating other patients and teaching time. Please see my other sections and the rest of the note for further information on patient assessment and treatment. Stability Stability form required: No Heart Score Heart Score: Heart Score Response (Comments) Value History N/A 0 EKG N/A 0 Age N/A 0 Risk Factors N/A 0 Troponin N/A 0 Total 0 I personally scribed for MAITE MARY MD ([email or web address]) on 07/11/25 at 04:35. Electronically submitted by Serafin Culp ([email or web address]). I personally scribed for MAITE MARY MD ([email or web address]) on 07/11/25 at 06:02. Electronically submitted by Serafin Culp ([email or web address]). MAITE MARY MD Jul 11, 2025 04:35
[2025-07-11] MEDS: MIDAZOLAM HCL 5 MG/ML-1ML VIAL IV ONE ×2 (05:35→05:44)
[2025-07-11] MEDS: ROCURONIUM 10MG/ML 10ML VIAL IV ONE ×2 (05:43→05:52)
[2025-07-11] MEDS: PROPOFOL 100 ML IV SCH (05:56)
[2025-07-11] MEDS: PROPOFOL 100 ML IV ONE (05:57)
--- NOTE | 2025-07-11 06:30 | ECG ---
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
[2025-07-11 06:37] LABS: Hematocrit 33.8 % (36.0-46.0); Hemoglobin 11.5 g/dL (12.2-16.2); Mean Corpuscular Hemoglobin 33.8 pg (28.0-32.0); Mean Corpuscular Volume 99.1 fL (80.0-100.0); Nucleated Red Blood Cells % 0.1 %
[2025-07-11 06:55] LABS: Urine Protein, UAD Negative (Negative)
[2025-07-11 06:59] LABS: Potassium 3.9 mmol/L (3.5-5.1); Sodium 142 mmol/L (136-145)
[2025-07-11 07:00] LABS: Anion Gap 10 (5-15); Carbon Dioxide 24 mmol/L (20-31)
[2025-07-11 07:01] LABS: Calcium 8.9 mg/dL (8.7-10.4)
[2025-07-11 07:05] LABS: BUN/Creatinine Ratio 9.1 (10.0-20.0); Glucose 106 mg/dL (74-106)
[2025-07-11 07:06] LABS: Blood Urea Nitrogen 8 mg/dL (9-23); Chloride 108 mmol/L (98-107)
[2025-07-11 07:20] LABS: Base Excess -0.7 mmol/L (-2.0-3.0)
[2025-07-11] MEDS: MIDAZOLAM DRIP 50 mg/50mL 50 ML IV ONE (07:29)
[2025-07-11] MEDS: levETIRAcetam 500 mg/100ml 100 ML IV ONE (07:30)
[2025-07-11] MEDS: MIDAZOLAM DRIP 50 mg/50mL 50 ML IV SCH (07:30)
--- NOTE | 2025-07-11 07:33 | DVH ---
CHEST RADIOGRAPH Indication: S/P INTUBATION Technique: Single frontal view of the chest was obtained Comparison: XY CHEST XRAY 1 VIEW on DOS: 06/10/25 FINDINGS: Lines and Tubes: The endotracheal tube terminates 3.8 cm above the juan j. The enteric tube terminate s in the stomach. There are thoracic spine stimulator leads. Lungs: No focal airspace disease. Pleura: No effusion. No pneumothorax. Cardiomediastinal contours: Unremarkable Bones: No acute osseous abnormality. IMPRESSION: 1. Endotracheal tube terminates 3.8 cm above the juan j. 2. No acute cardiopulmonary process.
--- NOTE | 2025-07-11 09:48 | DVH ---
EXAM: CT HEAD WITHOUT CONTRAST HISTORY: LOC COMPARISON: CT HEAD WITHOUT CONTRAST on DOS: 06/06/25 TECHNIQUE: Noncontrast axial CT images of the head were performed. Sagittal and coronal reformatted i mages were obtained. This CT exam was performed using 1 or more of the following dose reduction techn iques: Automated exposure control, adjustment of the mA and/or kv according to patient size, or the u se of iterative reconstruction techniques. Radiation Dose: CTDI volume is 67.77 mGy. Dose-length product is 1198.01 mGy*cm FINDINGS: No intracranial hemorrhage, mass, midline shift, hydrocephalus, or evidence of acute large vessel inf arct. There is complete opacification of the right maxillary sinus; near-complete opacification of th e right ethmoid sinus; mild mucosal thickening of the left ethmoid, left maxillary, and left sphenoid sinuses. There is hypertrophy of the adenoid and palatine tonsils. The bilateral external auditory c anals and middle ear spaces are clear. There is fluid density and sclerosis in the caudal portions of the bilateral mastoid air cells. No cranial fracture. There is mild bilateral frontal supraorbital scalp edema or scarring, greater on the right. Endotracheal and OG tubes are partially visualized. IMPRESSION: 1. No acute intracranial process. 2. Paranasal sinus disease, most severely involving the right maxillary and ethmoid sinuses. 3. Fluid density and sclerosis of the bilateral mastoid air cells which may be due to chronic mastoid itis. 4. Partially visualized endotracheal tube and OG tube.
[2025-07-11] MEDS ORDERED: HYDROcodone-ACET 5/325MG TAB PO PRN (13:30)
[2025-07-11] MEDS ORDERED: LEVE500T3 PO (13:30)
[2025-07-11] MEDS ORDERED: NITROGLYCERIN 0.4 MG SL TAB SL PRN (13:30)
[2025-07-11] MEDS ORDERED: MORPHINE SULFATE INJ 2 MG/ml SYRG IV PRN ×2 (13:30)
[2025-07-11] MEDS ORDERED: DOCUSATE SOD 100 MG CAP PO PRN (13:30)
[2025-07-11] MEDS ORDERED: LACO200T3 PO (13:30)
--- NOTE | 2025-07-11 13:59 | DVHHP2 ---
History of Present Illness Reason for Visit: Seizures History of Present Illness Karime Sol is a 34-year-old female with past medical history of seizures, who was brought to the hospital by EMS for seizures. Patient was admitted here last month for the same complaint. She was intubated on that stay as well due to status epilepticus, and left AMA shortly after being extubated. There is no family available for history. No answer on the numbers called. STONE GLUER: Seizure Review of Systems Neurological: Seizures Allergies: Coded Allergies: NO KNOWN ALLERGIES (Unverified , 08/11/23) Medications Current Medications Medications Dose Ordered Sig/La Route Start Time Stop Time Status Last Admin Dose Admin Propofol 100 ml @ 2.31 mls/hr Q24H IV 07/11/25 05:45 07/11/25 05:56 2.31 MLS/HR Midazolam HCl 50 ml @ 1 mls/hr Q24H IV 07/11/25 07:15 07/11/25 07:30 1 MLS/HR Sodium Chloride 1,000 ml @ 60 mls/hr [id number] IV 07/11/25 13:30 UNV Acetaminophen/ Hydrocodone Bitart 1 tab Q4HP PRN PO 07/11/25 13:30 UNV Ondansetron HCl 4 mg Q4HP PRN IV 07/11/25 13:30 UNV Docusate Sodium 100 mg BIDPRN PRN PO 07/11/25 13:30 UNV Acetaminophen 650 mg Q6HP PRN PO 07/11/25 13:30 UNV Morphine Sulfate 2 mg Q4HPRN PRN IV 07/11/25 13:30 UNV Nitroglycerin 0.4 mg Q5MINP PRN SL 07/11/25 13:30 UNV Morphine Sulfate 2 mg Q30M PRN IV 07/11/25 13:30 UNV Exam Vital Signs Vital Signs Date Time Temp Pulse Resp B/P (MAP) Pulse Ox O2 Delivery O2 Flow Rate FiO2 07/11/25 12:45 99.7 68 16 140/98 (112) 100 99.7 07/11/25 12:10 30 07/11/25 07:20 Mechanical Ventilator+ 07/11/25 04:45 0 General Appearance: Other (Intubated and sedated) HEENT: Atraumatic, PERRLA Respiratory: Clear to auscultation, Normal air movement, Other (intubated) Cardiovascular: Regular rate, Normal S1, Normal S2 Extremities: No clubbing, No cyanosis, No edema Skin: No rashes, No breakdown, No significant lesion Neuro: Other (sedated) Psych/Mental Status: Other (sedated) Labs/Xrays Labs Test 07/11/25 09:15 07/11/25 07:09 07/11/25 06:14 07/11/25 06:09 Range/Units Troponin I High Sensitivity 8 </=34 ng/L Blood Gas Specimen Type Arterial Blood Gas Sample Site Left radial Blood Gas Patient Temperature 37.0 Arterial Blood Date Drawn [id number] Arterial Blood pH 7.427 7.350-7.450 Arterial Blood Partial Pressure CO2 36.0 32.0-45.0 mmHg Arterial Blood Partial Pressure O2 419.1 *H 83.0-108.0 mmHg Arterial Blood HCO3 23.2 21.0-28.0 mmol/L Arterial Blood Oxygen Saturation 99.7 H 94.0-98.0 % Arterial Blood Base Excess -0.7 -2.0-3.0 mmol/L Arterial Blood Oxyhemoglobin 98.5 H 94.0-98.0 % Arterial Blood Carboxyhemoglobin 0.6 0.5-1.5 % Arterial Blood Methemoglobin 0.6 0.0-1.5 % Hi Test Modified Blood Gas Total Hemoglobin 12.70 12.0-16.0 g/dL Blood Gas Set Respiration Rate 16.0 Blood Gas Modality Vent - ac FiO2 % 100.0 Blood Gas Tidal Volume 450.0 Blood Gas PEEP or CPAP 5.0 Blood Gas Critical Value Read Back Yes Blood Gas Notified Whom Jessica alonzo md Blood Gas Notified Time [id number] Blood Gas Notified By roe Guerrero rrt Urine Color Colorless Yellow Urine Clarity Clear Clear Urine pH 6.0 5.0-9.0 Urine Specific [place] 1.013 1.001-1.035 Urine Protein Negative Negative Urine Ketones Negative Negative Urine Blood Negative Negative /uL Urine Nitrite Negative Negative Urine Bilirubin Negative Negative Urine Urobilinogen Normal Negative mg/dL Urine Leukocyte Esterase Negative Negative /uL Urine RBC <1 0 - 4 /hpf Urine Microscopic WBC 1 0-5 /HPF Urine Squamous Epithelial Cells None seen <5 /hpf Urine Bacteria None seen None Seen /hpf Urine Glucose Normal Normal mg/dL White Blood Count 7.8 4.4-10.8 10^3/uL Red Blood Count 3.41 L 4.0-5.20 10^6/uL Hemoglobin 11.5 L 12.2-16.2 g/dL Hematocrit 33.8 L 36.0-46.0 % Mean Corpuscular Volume 99.1 80.0-100.0 fL Mean Corpuscular Hemoglobin 33.8 H 28.0-32.0 pg Mean Corpuscular Hemoglobin Concent 34.1 32.0-36.0 g/dL Red Cell Distribution Width 14.1 11.8-14.3 % Platelet Count 293 140-450 10^3/uL Mean Platelet Volume 7.9 6.9-10.8 fL Neutrophils (%) (Auto) 77.4 37.0-80.0 % Lymphocytes (%) (Auto) 16.4 10.0-50.0 % Monocytes (%) (Auto) 5.7 0.0-12.0 % Eosinophils (%) (Auto) 0.2 0.0-7.0 % Basophils (%) (Auto) 0.3 0.0-2.0 % Neutrophils # (Auto) 6.0 1.6-8.6 10 ^3/uL Lymphocytes # (Auto) 1.3 0.4-5.4 10 ^3/uL Monocytes # (Auto) 0.4 0-1.3 10 ^3/uL Eosinophils # (Auto) 0 0-0.8 10 ^3/uL Basophils # (Auto) 0 0-0.2 10 ^3/uL Nucleated Red Blood Cells 0.1 % Sodium Level 142 136-145 mmol/L Potassium Level 3.9 3.5-5.1 mmol/L Chloride Level 108 H 98-107 mmol/L Carbon Dioxide Level 24 20-31 mmol/L Anion Gap 10 5-15 Blood Urea Nitrogen 8 L 9-23 mg/dL Creatinine 0.88 0.550-1.02 mg/dL Glomerular Filtration Rate Calc 88 >90 mL/min BUN/Creatinine Ratio 9.1 L 10.0-20.0 Serum Glucose 106 74-106 mg/dL Lactic Acid Level 1.1 0.4-2.0 mmol/L Calcium Level 8.9 8.7-10.4 mg/dL Microbiology Date/Time Source Procedure Growth Status 07/11/25 06:00 Sputum Gram Stain - Final Resulted 07/11/25 06:00 Sputum Respiratory Culture Pending Resulted EXAM: CT HEAD WITHOUT CONTRAST FINDINGS: No intracranial hemorrhage, mass, midline shift, hydrocephalus, or evidence of acute large vessel infarct. There is complete opacification of the right maxillary sinus; near-complete opacification of the right ethmoid sinus; mild mucosal thickening of the left ethmoid, left maxillary, and left sphenoid sinuses. There is hypertrophy of the adenoid and palatine tonsils. The bilateral external auditory canals and middle ear spaces are clear. There is fluid density and sclerosis in the caudal portions of the bilateral mastoid air cells. No cranial fracture. There is mild bilateral frontal supraorbital scalp edema or scarring, greater on the right. Endotracheal and OG tubes are partially visualized. IMPRESSION: 1. No acute intracranial process. 2. Paranasal sinus disease, most severely involving the right maxillary and ethmoid sinuses. 3. Fluid density and sclerosis of the bilateral mastoid air cells which may be due to chronic mastoiditis. 4. Partially visualized endotracheal tube and OG tube. CHEST RADIOGRAPH FINDINGS: Lines and Tubes: The endotracheal tube terminates 3.8 cm above the juan j. The enteric tube terminates in the stomach. There are thoracic spine stimulator leads. Lungs: No focal airspace disease. Pleura: No effusion. No pneumothorax. Cardiomediastinal contours: Unremarkable Bones: No acute osseous abnormality. IMPRESSION: 1. Endotracheal tube terminates 3.8 cm above the juan j. 2. No acute cardiopulmonary process. SEPSIS Sepsis Screen Date sepsis recognized/suspect: Jul 11, 2025 Time Sepsis recognized/suspect: 0500 Recent Procedure: No On Antibiotic Therapy: No Respiratory Rate >20: No Heart Rate >90: No Temp<36 C (96.8 F) or >38.3 C: No SBP <90 or MAP <65 mmHG: No New Acute Mental Status Change: No Is the patient on CPAP, BIPAP,: No Physician Orders Propofol (Diprivan) (07/11/25 05:45) Rass Sedation Scale Q1HR (07/11/25 05:40) Chest Xray 1 View (07/11/25 05:40) Gross Catheters (07/11/25 ) Ngt/Ogt (07/11/25 ) Insert Gross Catheter QSHIFT (07/11/25 06:00) Ventilator Orders (07/11/25 05:59) Abg W/ Co-Ox (07/11/25 05:59) Respiratory Culture W/ Gs (07/11/25 05:59) Midazolam Drip 50 Mg/50ml (Versed Drip 5 (07/11/25 07:15) Food And Beverage Checker (07/11/25 08:08) Admit (07/11/25 13:27) Code Status (07/11/25 13:27) Sodium Chloride 0.9% (07/11/25 13:30) Hydrocodone-Acet 5/325mg Tab ([place] 5/32 (07/11/25 13:30) Ondansetron Hcl (Zofran) (07/11/25 13:30) Docusate Sodium Capsule (Colace Capsule) (07/11/25 13:30) Complete Blood Count (07/12/25 04:00) Comprehensive Metabolic Panel (07/12/25 04:00) Npo (Nothing By Mouth) Diet (07/11/25 Lunch) Condition: Critical (07/11/25 13:27) Acetaminophen Tablet (Tylenol Tablet) (07/11/25 13:30) Morphine Sulfate Injection (07/11/25 13:30) Nitroglycerin Sublingual (Ntrostat Subli (07/11/25 13:30) Morphine Sulfate Injection (07/11/25 13:30) Stat Ekg For Chest Pain (07/11/25 13:27) Notify Md Of Changes From Base (07/11/25 13:27) Executive Assistant To President For 24 Hours (07/11/25 13:27) Emergency Dysrhythmia Protocol (07/11/25 13:27) Rhythm Strips Once Every Shift (07/11/25 13:27) Oxygen By Nasal Cannula (07/11/25 13:27) * Neurology Consult (07/11/25 13:27) Levetiracetam Ivpb Keppra (07/11/25 22:00) (Nf) Lacosamide (07/11/25 22:00) Vital Signs Date Time Temp Pulse Resp B/P (MAP) Pulse Ox O2 Delivery O2 Flow Rate FiO2 07/11/25 12:45 99.7 68 16 140/98 (112) 100 99.7 07/11/25 12:30 99.7 64 16 143/105 (118) 100 99.7 07/11/25 12:15 99.5 64 16 152/110 (124) 100 99.5 07/11/25 12:10 61 16 152/100 (117) 100 30 07/11/25 12:00 99.5 62 16 146/101 (116) 100 99.5 07/11/25 12:00 72 07/11/25 11:45 99.3 62 16 133/99 (110) 100 99.3 07/11/25 11:30 99.2 70 16 136/98 (111) 100 99.2 07/11/25 11:15 99.3 68 16 137/102 (114) 100 99.3 07/11/25 11:00 99.3 67 16 133/103 (113) 100 99.3 07/11/25 10:45 99.1 77 16 140/98 (112) 100 99.1 07/11/25 10:45 133/103 07/11/25 10:45 133/103 07/11/25 10:30 99.1 64 16 139/98 (112) 100 99.1 07/11/25 10:15 99.0 62 16 138/101 (113) 100 99.0 07/11/25 10:00 62 16 130/96 (107) 100 07/11/25 09:45 98.8 65 16 137/100 (112) 100 98.8 07/11/25 09:38 63 16 137/100 (112) 100 40 07/11/25 09:30 59 16 129/89 (102) 100 07/11/25 09:15 98.4 71 16 132/89 (103) 100 98.4 07/11/25 09:00 98.4 71 16 133/88 (103) 100 98.4 07/11/25 08:45 98.6 72 16 128/92 (104) 100 98.6 07/11/25 08:30 98.8 73 16 124/87 (99) 100 98.8 07/11/25 08:15 99.1 65 16 132/93 (106) 100 99.1 07/11/25 08:00 64 07/11/25 08:00 99.1 67 16 132/94 (107) 100 99.1 07/11/25 08:00 129/93 9/2/25 07:45 99.1 65 16 143/99 (114) 100 99.1 07/11/25 07:30 161/104 07/11/25 07:30 99.0 80 18 155/113 (127) 100 99.0 07/11/25 07:25 155/113 07/11/25 07:20 88 16 161/111 (128) 100 50 07/11/25 07:20 72 16 100 Mechanical Ventilator+ 50 50 07/11/25 07:15 154/105 07/11/25 07:15 98.8 80 18 176/129 (145) 100 98.8 07/11/25 07:05 175/119 07/11/25 07:05 175/119 07/11/25 06:55 157/121 07/11/25 06:45 72 16 150/117 (128) 100 07/11/25 06:30 76 16 156/104 (121) 100 07/11/25 06:15 84 16 163/113 (130) 100 07/11/25 06:00 83 16 166/111 (129) 100 07/11/25 05:59 94 16 162/118 (133) 100 100 07/11/25 05:56 145/106 07/11/25 05:52 145/106 07/11/25 05:45 68 17 145/106 (119) 100 07/11/25 05:43 145/106 Laboratory Tests Test 07/11/25 06:09 Lactic Acid Level 1.1 mmol/L (0.4-2.0) White Blood Count 7.8 10^3/uL (4.4-10.8) Medications Medications Dose Ordered Sig/La Route Start Time Stop Time Status Last Admin Dose Admin Levetiracetam 100 ml @ 600 mls/hr ONCE ONCE IV 07/11/25 07:15 07/11/25 07:28 DC 07/11/25 07:30 600 MLS/HR Levetiracetam 200 ml @ 400 mls/hr ONCE ONCE IV 07/11/25 04:15 07/11/25 04:44 DC 07/11/25 04:20 400 MLS/HR Midazolam HCl 5 mg ONCE ONCE IV 07/11/25 05:30 07/11/25 05:31 DC 07/11/25 05:44 5 MG Midazolam HCl 5 mg ONCE ONCE IV 07/11/25 05:45 07/11/25 05:46 DC 07/11/25 05:44 5 MG Midazolam HCl 50 ml @ 1 mls/hr Q24H IV 07/11/25 07:15 07/11/25 07:30 1 MLS/HR Propofol 100 ml @ 2.31 mls/hr Q24H IV 07/11/25 05:45 07/11/25 05:56 2.31 MLS/HR Rocuronium [place] 100 mg ONCE ONCE IV 07/11/25 05:45 07/11/25 05:46 DC 07/11/25 05:43 100 MG Sodium Chloride 1,000 ml @ 1,000 mls/hr Q1H ONCE IV 07/11/25 04:15 07/11/25 05:14 DC 07/11/25 04:20 1,000 MLS/HR Assessment/Plan Assessment/Plan Assessment: Status epilepticus, Hypertension, Plan: Admit to ICU, Seizure precautions, Neurology consult, IV Keppra, IV hydration, UDS, NPO, PRN hypertension medications, Home medications reconciled, Plan discussed with: Patient My Orders Orders - ONEYDA AYERS USABILITY STRATEGIST Procedure Category Date Status Time Admit ADMIT 07/11/25 Transmitted 13:27 Code Status CODE 07/11/25 Transmitted 13:27 Sodium Chloride 0.9% PHA 07/11/25 Logged 13:30 Hydrocodone-Acet PHA 07/11/25 Logged 5/325mg Tab ([place] 13:30 Ondansetron Hcl PHA 07/11/25 Logged (Zofran) 13:30 Docusate Sodium PHA 07/11/25 Logged Capsule (Colace 13:30 Complete Blood Count LAB 07/12/25 Verified 04:00 Comprehensive LAB 07/12/25 Verified Metabolic Panel 04:00 Npo (Nothing By DIET 07/11/25 Transmitted Mouth) Diet Lunch Condition: Critical DOE 07/11/25 In Process 13:27 Acetaminophen Tablet PHA 07/11/25 Logged (Tylenol Tablet) 13:30 Morphine Sulfate PHA 07/11/25 Logged Injection 13:30 Nitroglycerin PHA 07/11/25 Logged Sublingual (Ntrostat 13:30 Morphine Sulfate PHA 07/11/25 Logged Injection 13:30 Stat Ekg For Chest DOE 07/11/25 In Process Pain 13:27 Notify Md Of Changes [facility] 07/11/25 In Process From Base 13:27 Executive Assistant To President For [facility] 07/11/25 In Process 24 Hours 13:27 Emergency Dysrhythmia [facility] 07/11/25 In Process Protocol 13:27 Rhythm Strips Once [facility] 07/11/25 In Process Every Shift 13:27 Oxygen By Nasal RT 07/11/25 Transmitted Cannula 13:27 * Neurology Consult CONS 07/11/25 Transmitted 13:27 Levetiracetam Ivpb PHA 07/11/25 Verified Keppra 22:00 (Nf) Lacosamide PHA 07/11/25 Verified 22:00 Date of Service: Jul 11, 2025 Billing Provider: ONEYDA AYERS Common Visit Codes: [id number] INP/OBS CARE (HIGH) ONEYDA AYERS Jul 11, 2025 13:59
[2025-07-11] MEDS: ACETAMINOPHEN 325 MG TAB PO PRN (15:28)
[2025-07-11] MEDS: SODIUM CHLORIDE 0.9% 1,000 ML IV SCH (15:33)
--- NOTE | 2025-07-11 16:53 | DVHINCON2 ---
Date of service: Jul 11, 2025 Referring Physician Carmen Reason for Consultation Status epileptics History of Present Illness Ms. Sol is a 34 years old female with a history of seizure disorder, she was brought to the [facility] on 07[facility]25 with a chief complaint of seizure. At this time, she is sedated, intubated, the history is obtained from Sukhi, her best friend and caregiver. I have also talked to her nurse, and reviewed the chart. I saw on 08/07/2025 for seizure (Dr. Vickie Angulo's note dated 06/06/25: she had 70 witnessed seizure activity). According to Sukhi, the patient has had 15 seizures within 1 hour at home before she called 911, in that she has spells event with shaking or jerking all over body, eyes closed, the events was mostly 15-30 seconds but sometimes up to 1 minute, she typically woke up in 10-15 seconds after the events were over, she was able to recognize the place, person on waking up, she told Sadi she just had a seizure, she was also able to tell that the seizure was coming up. She has a seizure disorder possibly for two years, she has seizure frequently, with last time about one week ago According to Sadi, she is has no specialist of her seizure, her seizure medication includes: lacosamide 200 mg two tablets daily , Keppra 500 mg b.i.d., valproic acid 250 mg, 3 tablets b.i.d. Sukhi, her best friend and caregiver, phone number [phone] ABG, 06/06/2025 (after 70 seizures): Unremarkable 07/11/2025: Unremarkable UDS, 06/06/2025: Benzo, opiates Plasma alcohol, 06/06/25: 3.6 Valproic acid, 06/07/2025: 39.4 Keppra, 06/06/2025: WBC/HB/PLT/MCV, 07/11/2025: 7.8/11.5/293/9/1.1 BMP, 07/11/2025: Unremarkable Folic acid, : 16 CT head, 06/06/2025: No acute intracranial abnormality. CT head, 07/11/2025: 1. No acute intracranial process. 2. Paranasal sinus disease, most severely involving the right maxillary and ethmoid sinuses. 3. Fluid density and sclerosis of the bilateral mastoid air cells which may be due to chronic mastoiditis. 4. Partially visualized endotracheal tube and OG tube Past Medical History Seizure disorder, asthma, heart disease, anxiety, depression Past Surgical History Stimulator insertion Family History: Diabetes mellitus G8 FATHER Hypertension G8 FATHER Family History Diabetes, hypertension Social History She has not history of tobacco smoker, no history of drug/alcohol abuse Allergies: Coded Allergies: NO KNOWN ALLERGIES (Unverified , 08/11/23) Home Meds Reported Medications Lacosamide (Lacosamide) 200 Mg Tab, 1 TAB PO BID 07/11/25 Levetiracetam (Levetiracetam) 500 Mg Tab, 1 TAB PO BID 07/11/25 Discontinued Scripts Ibuprofen (Ibuprofen) 600 Mg Tab, 1 TAB PO TID, #24 TAB Prov:SELIN REYES 08/11/23 Cephalexin Monohydrate (Cephalexin) 500 Mg Cap, 1 CAP PO QID, #32 CAP Prov:SELIN REYES 08/11/23 Current Medications Current Medications Medications (Trade) Dose Ordered Sig/La Route PRN Reason Start Time Stop Time Status Last Admin Propofol 100 ml @ 2.31 mls/hr Q24H IV 07/11/25 05:45 07/11/25 05:56 Midazolam HCl 50 ml @ 1 mls/hr Q24H IV 07/11/25 07:15 07/11/25 07:30 Sodium Chloride 1,000 ml @ 60 mls/hr [id number] IV 07/11/25 13:30 07/11/25 15:33 Acetaminophen/ Hydrocodone Bitart ([place] 5/325MG Tab) 1 tab Q4HP PRN PO MODERATE PAIN (4-6 PAIN SCALE) 07/11/25 13:30 Ondansetron HCl (Zofran) 4 mg Q4HP PRN IV NAUSEA / VOMITING 07/11/25 13:30 Docusate Sodium (Colace Capsule) 100 mg BIDPRN PRN PO FOR CONSTIPATION 07/11/25 13:30 Acetaminophen (Tylenol Tablet) 650 mg Q6HP PRN PO PAIN SCALE 1-3 OR TEMP>100.4 07/11/25 13:30 07/11/25 15:28 Morphine Sulfate 2 mg Q4HPRN PRN IV SEVERE PAIN (7-10 PAIN SCALE) 07/11/25 13:30 Nitroglycerin (Ntrostat Sublingual) 0.4 mg Q5MINP PRN SL FOR CHEST PAIN 07/11/25 13:30 Morphine Sulfate 2 mg Q30M PRN IV FOR CHEST PAIN 07/11/25 13:30 Levetiracetam 100 ml @ 400 mls/hr BID IV 07/11/25 22:00 07/11/25 13:55 DC Patient Own Medication 1 tab BID PO 07/11/25 22:00 UNV Levetiracetam 100 ml @ 400 mls/hr BID IV 07/11/25 22:00 Lacosamide (Vimpat) 200 mg BID PO 07/11/25 22:00 Review of Systems As above, the other systems are negative Vital Signs Vital Signs Date Time Temp Pulse Resp B/P (MAP) Pulse Ox O2 Delivery O2 Flow Rate FiO2 07/11/25 16:28 100.0 07/11/25 16:15 63 16 144/97 (113) 100 07/11/25 16:12 Mechanical Ventilator+ 30 30 07/11/25 04:45 0 Physical Exam The patient is well-nourished and well-developed with no distress. The patient is intubated HEENT: Normocephalic, neck supple, no carotid bruits Lungs: Clear to auscultation Cardiovascular: Regular rate and region, S1, S2, no murmurs Abdomen: Soft, nontender, normal bowel sounds MENTAL STATUS: Responsive painful stimuli, possibly responsive to light touch as well CRANIAL NERVES: Pupils are equal, round and reactive.There are corneal reflexes and doll's eyes phenomenon. No signs of facial weakness. There are gagging or coughing reflexes SENSATION: Responses to pain stimuli. MOTOR: Normal tone in the upper and lower extremity. Normal muscle bulk. No fasciculations. No spontaneous movement. REFLEXES: Deep tendon reflexes are symmetrical. No pathological reflexes. CEREBELLAR/COORDINATION: Deferred GAIT/STATION: deferred. Labs/Diagnostic Data Labs Test 07/11/25 09:15 07/11/25 07:09 07/11/25 06:14 07/11/25 06:09 Range/Units Troponin I High Sensitivity 8 </=34 ng/L Blood Gas Specimen Type Arterial Blood Gas Sample Site Left radial Blood Gas Patient Temperature 37.0 Arterial Blood Date Drawn [id number] Arterial Blood pH 7.427 7.350-7.450 Arterial Blood Partial Pressure CO2 36.0 32.0-45.0 mmHg Arterial Blood Partial Pressure O2 419.1 *H 83.0-108.0 mmHg Arterial Blood HCO3 23.2 21.0-28.0 mmol/L Arterial Blood Oxygen Saturation 99.7 H 94.0-98.0 % Arterial Blood Base Excess -0.7 -2.0-3.0 mmol/L Arterial Blood Oxyhemoglobin 98.5 H 94.0-98.0 % Arterial Blood Carboxyhemoglobin 0.6 0.5-1.5 % Arterial Blood Methemoglobin 0.6 0.0-1.5 % Hi Test Modified Blood Gas Total Hemoglobin 12.70 12.0-16.0 g/dL Blood Gas Set Respiration Rate 16.0 Blood Gas Modality Vent - ac FiO2 % 100.0 Blood Gas Tidal Volume 450.0 Blood Gas PEEP or CPAP 5.0 Blood Gas Critical Value Read Back Yes Blood Gas Notified Whom Jessica alonzo md Blood Gas Notified Time [id number] Blood Gas Notified By roe Guerrero rrt Urine Color Colorless Yellow Urine Clarity Clear Clear Urine pH 6.0 5.0-9.0 Urine Specific [place] 1.013 1.001-1.035 Urine Protein Negative Negative Urine Ketones Negative Negative Urine Blood Negative Negative /uL Urine Nitrite Negative Negative Urine Bilirubin Negative Negative Urine Urobilinogen Normal Negative mg/dL Urine Leukocyte Esterase Negative Negative /uL Urine RBC <1 0 - 4 /hpf Urine Microscopic WBC 1 0-5 /HPF Urine Squamous Epithelial Cells None seen <5 /hpf Urine Bacteria None seen None Seen /hpf Urine Glucose Normal Normal mg/dL White Blood Count 7.8 4.4-10.8 10^3/uL Red Blood Count 3.41 L 4.0-5.20 10^6/uL Hemoglobin 11.5 L 12.2-16.2 g/dL Hematocrit 33.8 L 36.0-46.0 % Mean Corpuscular Volume 99.1 80.0-100.0 fL Mean Corpuscular Hemoglobin 33.8 H 28.0-32.0 pg Mean Corpuscular Hemoglobin Concent 34.1 32.0-36.0 g/dL Red Cell Distribution Width 14.1 11.8-14.3 % Platelet Count 293 140-450 10^3/uL Mean Platelet Volume 7.9 6.9-10.8 fL Neutrophils (%) (Auto) 77.4 37.0-80.0 % Lymphocytes (%) (Auto) 16.4 10.0-50.0 % Monocytes (%) (Auto) 5.7 0.0-12.0 % Eosinophils (%) (Auto) 0.2 0.0-7.0 % Basophils (%) (Auto) 0.3 0.0-2.0 % Neutrophils # (Auto) 6.0 1.6-8.6 10 ^3/uL Lymphocytes # (Auto) 1.3 0.4-5.4 10 ^3/uL Monocytes # (Auto) 0.4 0-1.3 10 ^3/uL Eosinophils # (Auto) 0 0-0.8 10 ^3/uL Basophils # (Auto) 0 0-0.2 10 ^3/uL Nucleated Red Blood Cells 0.1 % Sodium Level 142 136-145 mmol/L Potassium Level 3.9 3.5-5.1 mmol/L Chloride Level 108 H 98-107 mmol/L Carbon Dioxide Level 24 20-31 mmol/L Anion Gap 10 5-15 Blood Urea Nitrogen 8 L 9-23 mg/dL Creatinine 0.88 0.550-1.02 mg/dL Glomerular Filtration Rate Calc 88 >90 mL/min BUN/Creatinine Ratio 9.1 L 10.0-20.0 Serum Glucose 106 74-106 mg/dL Lactic Acid Level 1.1 0.4-2.0 mmol/L Calcium Level 8.9 8.7-10.4 mg/dL Microbiology Date/Time Source Procedure Growth Status 07/11/25 06:00 Sputum Gram Stain - Final Resulted 07/11/25 06:00 Sputum Respiratory Culture Pending Resulted Assessment Status epileptics 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 Vimpat 200mg Bid Depakote 500mg IV Q8H Ativan for seizure breakthrough DVT prophylax/Lovenox Ativan for seizure breakthrough More recommendation per clinical course Critical care time spent is 50 minutes This medical document was created using an electronic medical record system with [employer] dictation system. Although this document has been carefully reviewed, there may still be some phonetic and typographical errors. These areas are purely typographical due to imperfections of the software programs, and do not reflect any compromise in the patient's medical care. Plan discussed with: Other DOMENIC SHIPMAN MD Jul 11, 2025 16:53
[2025-07-11] MEDS ORDERED: VIMPAT 200 MG IV SCH (17:30)
[2025-07-11] MEDS: hydrALAZINE HCL 20 MG/ML VL IV PRN (18:35)
[2025-07-11 19:11] LABS: Cocaine Screen, Urine Pos (NEGATIVE); Opiate Scree,Urine Neg (NEGATIVE)
[2025-07-11 19:13] LABS: Amphetamine Screen, Urine Neg (NEGATIVE); Barbiturate Scree,Urine Neg (NEGATIVE); Benzodiazephine Screen, Urine Pos (NEGATIVE); Cannabinoid Screen, Urine Neg (NEGATIVE); Phencyclidine Screen, Urine Neg (NEGATIVE)
[2025-07-11] MEDS: VALPROATE INJ 500 MG in SODIUM CHL 0.9% 100 ML IV SCH (20:33)
[2025-07-11] MEDS: IBUPROFEN 800 MG TAB PO ONE (21:00)
[2025-07-11] MEDS ORDERED: levETIRAcetam 1000 mg/100ml 100 ML IV SCH (22:00)
[2025-07-11] MEDS ORDERED: levETIRAcetam 500 mg/100ml 100 ML IV SCH (22:00)
[2025-07-11] MEDS ORDERED: LACOSAMIDE 50 MG TAB PO SCH (22:00)
[2025-07-11] MEDS ORDERED: LACOSAMIDE PO SCH (22:00)
[2025-07-11] MEDS: fentaNYL Drip 2500mCg/250mlNS 250 ML IV SCH (22:27)
[2025-07-11] MEDS: fentaNYL Drip 2500mCg/250mlNS 250 ML IV ONE (22:29)
[2025-07-11] MEDS: LACOSAMIDE 200 MG in SODIUM CHL 0.9% 100 ML IV SCH (23:05)
[2025-07-11] MEDS: levETIRAcetam 500 mg/100ml 100 ML IV SCH (23:08)
[2025-07-12] VITALS (106 sets, daily range): BP systolic 80–183; BP diastolic 46–112; PULSE 64–102; RESP 13–31; TEMP 98.6–100.2; O2SAT 99–100
[2025-07-12 08:14] LABS: Base Excess -0.1 mmol/L (-2.0-3.0)
[2025-07-12 10:39] LABS: Hematocrit 32.3 % (36.0-46.0); Hemoglobin 10.8 g/dL (12.2-16.2); Mean Corpuscular Hemoglobin 33.2 pg (28.0-32.0); Mean Corpuscular Volume 99.5 fL (80.0-100.0); Nucleated Red Blood Cells % 0.0 %
[2025-07-12] MEDS: ENOXAPARIN SOD 40 MG/0.4 ML SYRINGE SC ONE (10:39)
[2025-07-12] MEDS: PANTOPRAZOLE 40 MG/10 ML VIAL INJ IV ONE (10:40)
[2025-07-12 10:59] LABS: Alanine Aminotransferase 9 U/L (7-40); Albumin 3.5 g/dL (3.2-4.8); Alkaline Phosphatase 68 U/L (46-116); Anion Gap 10 (5-15); BUN/Creatinine Ratio 12.8 (10.0-20.0); Bilirubin, Total 0.9 mg/dL (0.2-1.0); Blood Urea Nitrogen 10 mg/dL (9-23); Calcium 8.5 mg/dL (8.7-10.4); Carbon Dioxide 26 mmol/L (20-31); Chloride 109 mmol/L (98-107); Glucose 83 mg/dL (74-106); Potassium 3.4 mmol/L (3.5-5.1); Sodium 145 mmol/L (136-145); Total Protein 6.2 g/dL (5.7-8.2)
[2025-07-12] MEDS: POTASSIUM CHL 20MEQ/100ML 100 ML IV ONE (11:59)
[2025-07-12] MEDS ORDERED: Vital High Protein 1liter Bottle GT SCH (16:45)
[2025-07-12] MEDS: ACETAMINOPHEN 325 MG TAB PO PRN (17:04)
--- NOTE | 2025-07-12 17:16 | DVHPNRES ---
Progress Note Date Seen: Jul 12, 2025 Resident Creating Document: YAMILKA FAY RESIDENT Medical Necessity Reason Pt with a Central, PICC or Fol: Yes Subjective Review of Systems This is a 34-year-old female with past medical history of seizure, anxiety, depression, previous extubated intubation due to status epilepticus brought to the hospital by via EMS for breakthrough seizures. En route To hospital she was experiencing multiple unprovoked and sudden seizure episodes and was given Versed 7.5 mg. In the ED patient still actively seizing and received multiple doses of Ativan and later intubated to protect the airway. Patient was seen and examined in the ICU. She is on mechanical ventilation with FiO2 30%, 16, tidal volume 450 mL, PEEP 5. The patient is running fever T-max is 100.8 and hypertensive blood pressure is 166/103. Neurology Dr. Ackerman is on board and resumed her antiseizure medication with Keppra, lacosamide and valproate. Started tube feeding today. Objective vital signs Vital Sign Date Time Temp Pulse Resp B/P (MAP) Pulse Ox O2 Delivery O2 Flow Rate FiO2 07/12/25 17:04 100.8 07/12/25 17:04 166/103 07/12/25 16:15 72 13 100 07/12/25 16:04 30 07/12/25 16:00 Mechanical Ventilator+ 07/11/25 04:45 0 Total Intake and Output 07/11/25 07/11/25 07/12/25 15:00 23:00 07:00 Intake Total 154.2 ml 345.9 ml 699.72 ml Output Total 1350 ml Balance 154.2 ml 345.9 ml -650.28 ml medications Current Medications Medications Dose Ordered Sig/La Route Start Time Stop Time Status Last Admin Dose Admin Propofol 100 ml @ 2.31 mls/hr Q24H IV 07/11/25 05:45 07/12/25 17:04 11.55 MLS/HR Midazolam HCl 50 ml @ 1 mls/hr Q24H IV 07/11/25 07:15 07/12/25 09:27 7 MLS/HR Sodium Chloride 1,000 ml @ 60 mls/hr [id number] IV 07/11/25 13:30 07/12/25 10:49 60 MLS/HR Ondansetron HCl 4 mg Q4HP PRN IV 07/11/25 13:30 Patient Own Medication 1 tab BID PO 07/11/25 22:00 UNV Levetiracetam 100 ml @ 400 mls/hr BID IV 07/11/25 22:00 07/12/25 09:26 400 MLS/HR Patient Own Medication 200 mg Q12H IV 07/11/25 17:30 UNV Valproate Sodium 500 mg/Sodium Chloride 105 ml @ 105 mls/hr Q8H IV 07/11/25 17:30 07/12/25 09:24 105 MLS/HR Lorazepam 1 mg Q5MINP PRN IV 07/11/25 17:30 Hydralazine HCl 10 mg Q6HP PRN IV 07/11/25 18:00 07/11/25 21:21 10 MG Lacosamide 200 mg/ Sodium Chloride 120 ml @ 120 mls/hr BID IV 07/11/25 22:00 07/12/25 10:39 120 MLS/HR Fentanyl Citrate 250 ml @ 2.5 mls/hr Q24H IV 07/11/25 22:15 07/11/25 22:27 2.5 MLS/HR Pantoprazole Sodium 40 mg DAILY IV 07/13/25 10:00 Enoxaparin Sodium 40 mg DAILY SC 07/13/25 10:00 Acetaminophen 650 mg Q6HP PRN PO 07/12/25 15:30 07/12/25 17:04 650 MG Enteral Nutritional Formula 1,000 ml 40ML/HR GT 07/12/25 16:45 Examination General: RASS -3, afebrile, mucosae are moist Cardiovascular: Normal S1 and S2. No murmurs, gallops or rubs Respiratory: Mechanically assisted ventilation, equal bilateral airway entree. Clear lung sounds on auscultation Abdomen: Soft, nontender, no organomegaly, normal bowel sounds MSK/skin: Mobilization of limbs cannot be evaluated. Skin is dry and warm. Neurological: Orientation cannot be assessed. No apparent motor no sensitive deficits. Pupils are isocoric and reactive laboratory and microbiology Laboratory Tests 07/12/25 10:10 Test 07/12/25 10:10 Range/Units Serum Glucose 83 74-106 mg/dL Microbiology Date/Time Source Procedure Growth Status 07/12/25 05:40 Nose MRSA Screen - Final Complete 07/11/25 06:00 Sputum Gram Stain - Final Resulted 07/11/25 06:00 Sputum Respiratory Culture - Preliminary Resulted Labs and/or images reviewed: Labs reviewed by me, Image(s) reviewed by me Problem List/Assessment/Plan Problem List/Assessment/Plan Assessment and plan: NEURO: Acute metabolic encephalopathy due to breakthrough seizures, status post intubation Status epilepticus History of seizure disorder Noncompliant with antiseizure medication Cocaine abuse disorder RASS score: -3 - CT head without contrast demonstrated no acute intracranial process, chronic mastoiditis, paranasal sinus disease involved right maxillary and ethmoid sinuses - MRI could not be done as patient has a stimulator on the back - EEG pending - Neurology on board - Pending blood culture, urinary bacterial culture - UDS is positive for cocaine - patient is on propofol, Versed and fentanyl - continue IV Keppra, lacosamide and valproate GENITOURINARY: Rule out rhabdomyolysis - Multiple episodes of generalized tonic-clonic seizure - ordered CPK METABOLIC: Hypokalemia - replenished HEME: Chronic macrocytic anaemia - Monitor H&H DIET: Tube Feeding DVT prophylax: Lovenox GI prophylaxis: Protonix Bowel regimen: Code status: Full code LINES/DRAINS/ACCESS: ETT: Intubated on 07/11/25 IV access: rt femoral central line placed on 07/11/2025 Drips: Propofol, Versed, fentanyl Gross catheter: Placed on 07/11/2025 DISPOSITION: ICU Patient's status discussed with children's zoo caretaker time spent more than 83 minutes, including patient care, chart review, and updating the family. Excluding any procedures. Case discussed with Dr. Smith Plan discussed with: Other (RN) My Orders My Orders Orders - YAMILKA FAY RESIDENT Procedure Category Date Status Time Pantoprazole PHA 07/13/25 In Process (Protonix) 10:00 Enoxaparin Sodium PHA 07/13/25 In Process (Lovenox) 10:00 Acetaminophen Tablet PHA 07/12/25 In Process (Tylenol Tablet) 15:30 Nutritional PHA 07/12/25 In Process Supplements (Vital 16:45 Date of Service: Jul 12, 2025 Billing Provider: ERICA SMITH MD Common Visit Codes: [id number] CARE 30-74 MIN, [id number] CARE-EACH +30MIN YAMILKA FAY RESIDENT Jul 12, 2025 17:15 ERICA SMITH MD Jul 13, 2025 11:18
--- NOTE | 2025-07-12 22:05 | DVHPN2 ---
Progress Note - Dictate Date Seen: Jul 12, 2025 Medical Necessity Reason Pt with a Central, PICC or Fol: Yes Subjective Ms. Sol is a 34 years old female with a history of seizure disorder, she was brought to the [facility] on 07/11/25 with a chief complaint of seizure. (According to Sukhi, she had 15 seizures within 1 hour at home) I saw on 08/07/2025 for seizure (Dr. Vickie Angulo's note dated 06/06/25: she had 70 witnessed seizure activity). I have seen and examined the patient, I have talked to her nurse, she is intubated, sedated, responsive to strong painful stimuli Fentanyl 25 mcg/hour, propofol 25 mcg/min, Versed 7 mg/hour ABG, 06/06/2025 (after 70 seizures): Unremarkable 07/11/2025: Unremarkable UDS, 06/06/2025: Benzo, opiates Plasma alcohol, 06/06/25: 3.6 Valproic acid, 06/07/2025: 39.4 Keppra, 06/06/2025: WBC/HB/PLT/MCV, 07/11/2025: 7.8/11.5/293/9/1.1 BMP, 07/11/2025: Unremarkable Folic acid, : 16 CT head, 06/06/2025: No acute intracranial abnormality. CT head, 07/11/2025: 1. No acute intracranial process. 2. Paranasal sinus disease, most severely involving the right maxillary and ethmoid sinuses. 3. Fluid density and sclerosis of the bilateral mastoid air cells which may be due to chronic mastoiditis. 4. Partially visualized endotracheal tube and OG tube vital signs Vital Sign Date Time Temp Pulse Resp B/P (MAP) Pulse Ox O2 Delivery O2 Flow Rate FiO2 07/12/25 21:30 95 20 152/102 (119) 100 07/12/25 20:50 30 07/12/25 20:00 Mechanical Ventilator+ 07/12/25 20:00 99.7 99.7 07/11/25 04:45 0 Total Intake and Output 07/11/25 07/11/25 07/12/25 15:00 23:00 07:00 Intake Total 154.2 ml 345.9 ml 699.72 ml Output Total 1350 ml Balance 154.2 ml 345.9 ml -650.28 ml medications Current Medications Medications Dose Ordered Sig/La Route Start Time Stop Time Status Last Admin Dose Admin Propofol 100 ml @ 2.31 mls/hr Q24H IV 07/11/25 05:45 07/12/25 17:04 11.55 MLS/HR Midazolam HCl 50 ml @ 1 mls/hr Q24H IV 07/11/25 07:15 07/12/25 17:43 7 MLS/HR Sodium Chloride 1,000 ml @ 60 mls/hr [id number] IV 07/11/25 13:30 07/12/25 10:49 60 MLS/HR Ondansetron HCl 4 mg Q4HP PRN IV 07/11/25 13:30 Patient Own Medication 1 tab BID PO 07/11/25 22:00 UNV Levetiracetam 100 ml @ 400 mls/hr BID IV 07/11/25 22:00 07/12/25 21:48 400 MLS/HR Patient Own Medication 200 mg Q12H IV 07/11/25 17:30 UNV Valproate Sodium 500 mg/Sodium Chloride 105 ml @ 105 mls/hr Q8H IV 07/11/25 17:30 07/12/25 17:35 105 MLS/HR Lorazepam 1 mg Q5MINP PRN IV 07/11/25 17:30 Hydralazine HCl 10 mg Q6HP PRN IV 07/11/25 18:00 07/11/25 21:21 10 MG Lacosamide 200 mg/ Sodium Chloride 120 ml @ 120 mls/hr BID IV 07/11/25 22:00 07/12/25 21:51 120 MLS/HR Fentanyl Citrate 250 ml @ 2.5 mls/hr Q24H IV 07/11/25 22:15 07/11/25 22:27 2.5 MLS/HR Pantoprazole Sodium 40 mg DAILY IV 07/13/25 10:00 Enoxaparin Sodium 40 mg DAILY SC 07/13/25 10:00 Acetaminophen 650 mg Q6HP PRN PO 07/12/25 15:30 07/12/25 17:04 650 MG Enteral Nutritional Formula 1,000 ml 40ML/HR GT 07/12/25 16:45 Ibuprofen 400 mg Q6HP PRN PO 07/12/25 18:30 objective The patient is well-nourished and well-developed with no distress. The patient is intubated MENTAL STATUS: Subjective CRANIAL NERVES: Pupils are equal, round and reactive.There are corneal reflexes and doll's eyes phenomenon. No signs of facial weakness. There are gagging or coughing reflexes SENSATION: Responses to pain stimuli. MOTOR: Normal tone in the upper and lower extremity. Normal muscle bulk. No fasciculations. No spontaneous movement. REFLEXES: Deep tendon reflexes are symmetrical. No pathological reflexes. 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 Vimpat 200mg Bid Depakote 500mg IV Q8H Ativan for seizure breakthrough DVT prophylax/Lovenox Ativan for seizure breakthrough More recommendation per clinical course This medical document was created using an electronic medical record system with [employer] dictation system. Although this document has been carefully reviewed, there may still be some phonetic and typographical errors. These areas are purely typographical due to imperfections of the software programs, and do not reflect any compromise in the patient's medical care. Prognosis guarded Plan discussed with: Other Critical Care Time(min): 35 DOMENIC SHIPMAN MD Jul 12, 2025 22:05
[2025-07-13] VITALS (117 sets, daily range): BP systolic 105–165; BP diastolic 65–127; PULSE 68–117; RESP 12–23; TEMP 98.1–100.8; O2SAT 100
[2025-07-13 02:33] LABS: Hematocrit 36.4 % (36.0-46.0); Hemoglobin 12.3 g/dL (12.2-16.2); Mean Corpuscular Hemoglobin 33.3 pg (28.0-32.0); Mean Corpuscular Volume 98.7 fL (80.0-100.0); Nucleated Red Blood Cells % 0.0 %
[2025-07-13 02:34] LABS: Chloride 105 mmol/L (98-107); Sodium 140 mmol/L (136-145)
[2025-07-13 02:35] LABS: Anion Gap 11 (5-15); Calcium 9.4 mg/dL (8.7-10.4); Carbon Dioxide 24 mmol/L (20-31)
[2025-07-13 02:40] LABS: BUN/Creatinine Ratio 9.1 (10.0-20.0)
[2025-07-13 02:55] LABS: Blood Urea Nitrogen 7 mg/dL (9-23); Glucose 74 mg/dL (74-106); Potassium 3.2 mmol/L (3.5-5.1)
[2025-07-13] MEDS: POTASSIUM CHL 20MEQ/100ML 100 ML IV SCH (04:14)
--- NOTE | 2025-07-13 06:28 | DVH ---
CHEST RADIOGRAPH Indication: INTUBATED Technique: Single frontal view of the chest was obtained COMPARISON: XY CHEST XRAY 1 VIEW on DOS: 07/11/25, XY CHEST XRAY 1 VIEW on DOS: 06/10/25, XY CHEST XRAY 1 VIEW on DOS: 06/09/25, XY CHEST PORTABLE on DOS: 06/08/25, XY CHEST XRAY 1 VIEW on DOS: 06/07/25 FINDINGS: Lines and Tubes: Slight interval retraction of the endotracheal tube such that the tip now projects a pproximately 5.1 cm above the of the juan j. Enteric catheter unchanged. Lungs: Minimal left basilar atelectasis. No evidence of focal consolidation. Pleura: No effusion. No pneumothorax. Cardiomediastinal contours: Unremarkable Bones: Unremarkable IMPRESSION: 1. Interval retraction of endotracheal tube as above. 2. Minimal left basilar atelectasis. 3. No evidence of acute cardiopulmonary process.
[2025-07-13] MEDS: ENOXAPARIN SOD 40 MG/0.4 ML SYRINGE SC SCH (07:25)
[2025-07-13] MEDS: PANTOPRAZOLE 40 MG/10 ML VIAL INJ IV SCH (07:25)
[2025-07-13 08:12] LABS: Base Excess -0.9 mmol/L (-2.0-3.0)
[2025-07-13] MEDS ORDERED: VANCOMYCIN PER PHARMACY 0 MG IV SCH (08:45)
[2025-07-13] MEDS ORDERED: Vital High Protein 1liter Bottle GT SCH (09:00)
[2025-07-13] MEDS: MEROPENEM 1GM IVPB 50 ML IV ONE (09:26)
[2025-07-13] MEDS: VANCOMYCIN 1GM/250ML KIT 250 ML IV SCH (10:03)
--- NOTE | 2025-07-13 10:44 | DVHEEG2 ---
Neurology EEG Procedural Note Procedural Note EXAM DATE: 07/12/25 REFERRING DOCTOR: Dr. Shipman TECHNIQUE: Eighteen channels of EEG, 2 channels of EOG, and 1 channel of EKG were recorded using the International 10/20 system. CLINICAL DATA: The patient was referred for an EEG evaluation for the evidence of seizure disorder. MEDICATIONS: See chart BACKGROUND ACTIVITY: The record showed diffuse rhythmic and semirhythmic low- amplitude waveforms in alpha, theta and beta ranges diffusely over both hemispheres, that was reactive to external stimuli. ACTIVATION: Hyperventilation: Not done Photic Stimulation: Not done Sleep: Nonresponsiveness IMPRESSION: This is a remarkably abnormal EEG, this EEG seen in severe cerebral dysfunction due to metabolic/hypoxic encephalopathy or medication effects, please correlate clinically The sharply contoured left hemisphere waveform were not unequivocally considered epileptiform in nature [place] [address]. DOMENIC SHIPMAN MD Jul 13, 2025 10:44
[2025-07-13] MEDS ORDERED: DEXMEDETOMIDINE HCL IN D5W 100 ML IV SCH (12:30)
--- NOTE | 2025-07-13 15:06 | DVHPNRES ---
Progress Note Date Seen: Jul 13, 2025 Resident Creating Document: YAMILKA FAY RESIDENT Medical Necessity Reason Pt with a Central, PICC or Fol: Yes Subjective Review of Systems This is a 34-year-old female with past medical history of seizure, anxiety, depression, previous extubated intubation due to status epilepticus brought to the hospital by via EMS for breakthrough seizures. En route To hospital she was experiencing multiple unprovoked and sudden seizure episodes and was given Versed 7.5 mg. In the ED patient still actively seizing and received multiple doses of Ativan and later intubated to protect the airway. Patient was seen and examined in the ICU. She is on mechanical ventilation with FiO2 30%, 16, tidal volume 450 mL, PEEP 5. The patient is running fever T-max is 100.8 and hypertensive blood pressure is 166/103. WBC count is going up, urine culture preliminary report revealed Gram-negative rods, blood cultures pending and started IV vancomycin as per pharmacy and IV meropenem. Sedation, vacation today and patient is scheduled for CPAP trial tomorrow. Objective vital signs Vital Sign Date Time Temp Pulse Resp B/P (MAP) Pulse Ox O2 Delivery O2 Flow Rate FiO2 07/13/25 14:22 87 16 149/99 (116) 100 30 07/13/25 14:00 99.9 99.9 07/13/25 13:33 Mechanical Ventilator+ Total Intake and Output 07/12/25 07/12/25 07/13/25 14:59 22:59 06:59 Intake Total 1041.28 ml 853.40 ml 1085.36 ml Output Total 450 ml 1250 ml Balance 1041.28 ml 403.40 ml -164.64 ml medications Current Medications Medications Dose Ordered Sig/La Route Start Time Stop Time Status Last Admin Dose Admin Propofol 100 ml @ 2.31 mls/hr Q24H IV 07/11/25 05:45 07/13/25 05:03 16.17 MLS/HR Midazolam HCl 50 ml @ 1 mls/hr Q24H IV 07/11/25 07:15 07/13/25 13:43 7 MLS/HR Sodium Chloride 1,000 ml @ 60 mls/hr [id number] IV 07/11/25 13:30 07/12/25 10:49 60 MLS/HR Ondansetron HCl 4 mg Q4HP PRN IV 07/11/25 13:30 Patient Own Medication 1 tab BID PO 07/11/25 22:00 UNV Levetiracetam 100 ml @ 400 mls/hr BID IV 07/11/25 22:00 07/13/25 07:25 400 MLS/HR Patient Own Medication 200 mg Q12H IV 07/11/25 17:30 UNV Valproate Sodium 500 mg/Sodium Chloride 105 ml @ 105 mls/hr Q8H IV 07/11/25 17:30 07/13/25 07:25 105 MLS/HR Lorazepam 1 mg Q5MINP PRN IV 07/11/25 17:30 Hydralazine HCl 10 mg Q6HP PRN IV 07/11/25 18:00 07/13/25 00:15 10 MG Lacosamide 200 mg/ Sodium Chloride 120 ml @ 120 mls/hr BID IV 07/11/25 22:00 07/13/25 10:02 120 MLS/HR Fentanyl Citrate 250 ml @ 2.5 mls/hr Q24H IV 07/11/25 22:15 07/11/25 22:27 2.5 MLS/HR Pantoprazole Sodium 40 mg DAILY IV 07/13/25 10:00 07/13/25 07:25 40 MG Enoxaparin Sodium 40 mg DAILY SC 07/13/25 10:00 07/13/25 07:25 40 MG Acetaminophen 650 mg Q6HP PRN PO 07/12/25 15:30 07/13/25 10:06 650 MG Ibuprofen 400 mg Q6HP PRN PO 07/12/25 18:30 Vancomycin HCl 0 ml @ 0 mls/hr UD IV 07/13/25 08:45 Meropenem 50 ml @ 17 mls/hr Q8H IV 07/13/25 17:00 Enteral Nutritional Formula 1,000 ml 55ML/HR GT 07/13/25 09:00 Vancomycin HCl 250 ml @ 166.667 mls/hr Q12H IV 07/13/25 20:00 Examination Examination General: RASS -3, afebrile, mucosae are moist Cardiovascular: Normal S1 and S2. No murmurs, gallops or rubs Respiratory: Mechanically assisted ventilation, equal bilateral airway entree. Clear lung sounds on auscultation Abdomen: Soft, nontender, no organomegaly, normal bowel sounds MSK/skin: Mobilization of limbs cannot be evaluated. Skin is dry and warm. Neurological: Orientation cannot be assessed. No apparent motor no sensitive deficits. Pupils are isocoric and reactive laboratory and microbiology Laboratory Tests 07/13/25 02:03 Test 07/13/25 02:03 Range/Units Serum Glucose 74 74-106 mg/dL Microbiology Date/Time Source Procedure Growth Status 07/12/25 20:42 Voided Urine Urine Culture - Preliminary Resulted 07/12/25 05:40 Nose MRSA Screen - Final Complete 07/11/25 06:00 Sputum Gram Stain - Final Complete 07/11/25 06:00 Sputum Respiratory Culture - Final Complete Labs and/or images reviewed: Labs reviewed by me, Image(s) reviewed by me Problem List/Assessment/Plan Problem List/Assessment/Plan Assessment and plan: NEURO: Acute metabolic encephalopathy due to breakthrough seizures, status post intubation Status epilepticus History of seizure disorder Noncompliant with antiseizure medication Cocaine abuse disorder RASS score: -3 - CT head without contrast demonstrated no acute intracranial process, chronic mastoiditis, paranasal sinus disease involved right maxillary and ethmoid sinuses - MRI could not be done as patient has a stimulator on the back - EEG pending - Neurology on board - Pending blood culture, urinary bacterial culture - UDS is positive for cocaine - patient is on propofol, Versed and fentanyl - continue IV Keppra, lacosamide and valproate GENITOURINARY: Ruled out rhabdomyolysis Acute complicated cystitis - Multiple episodes of generalized tonic-clonic seizure - CPK is 30 - Urine bacterial culture preliminary result showed Gram-negative rods - IV meropenem 1 g Q 8 hours METABOLIC: Hypokalemia - replenished HEME: Chronic macrocytic anaemia - Monitor H&H INFECTIOUS DISEASE: Acute complicated cystitis - Urine bacterial culture preliminary result showed Gram-negative rods and blood culture is pending - IV vancomycin as per pharmacy and meropenem 1 g Q 8 hours DIET: Tube Feeding DVT prophylax: Lovenox GI prophylaxis: Protonix Bowel regimen: Code status: Full code LINES/DRAINS/ACCESS: ETT: Intubated on 07/11/25 IV access: rt femoral central line placed on 07/11/2025 Drips: Propofol, Versed, fentanyl Gross catheter: Placed on 07/11/2025 DISPOSITION: ICU Patient's status discussed with before and after school daycare worker time spent more than 63 minutes, including patient care, chart review, and updating the family. Excluding any procedures. Case discussed with Dr. Smith Plan discussed with: Other (RN) My Orders My Orders Orders - YAMILKA FAY Procedure Category Date Status Time Acetaminophen Tablet PHA 07/12/25 In Process (Tylenol Tablet) 15:30 Blood Culture DELANEY 07/12/25 In Process 20:34 Urine Bacterial DELANEY 07/12/25 In Process Culture 20:34 Ibuprofen Tablet PHA 07/12/25 In Process (Motrin Tablet) 18:30 Abg W/ Co-Ox RT 07/13/25 Logged 06:00 Vancomycin Per PHA 07/13/25 In Process Pharmacy 08:45 Meropenem 1gm Ivpb PHA 07/13/25 In Process (Merrem 1gm/50ml) 17:00 Nutritional PHA 07/13/25 In Process Supplements (Vital 09:00 Feeding Tube ED NURSING 07/13/25 Transmitted Complete Blood Count LAB 07/14/25 Verified 04:00 Creatinine LAB 07/14/25 Verified 04:00 Vancomycin PHA 07/13/25 In Process 1.5gm/250ml 20:00 Vancomycin Per DOE 07/13/25 In Process Pharmacy Protoc 20:00 Vancomycin,Trough LAB 07/15/25 Verified 07:00 Valproic Acid LAB 07/13/25 Logged (Depakene) 16:30 Date of Service: Jul 13, 2025 Billing Provider: ERICA SMITH MD Common Visit Codes: [id number] CARE 30-74 MIN YAMILKA FAY Jul 13, 2025 15:06 ERICA SMITH MD Jul 15, 2025 15:41
[2025-07-13] MEDS: MEROPENEM 1GM IVPB 50 ML IV SCH (16:52)
[2025-07-13] MEDS: VANCOMYCIN 1.5GM/250ML 250 ML IV SCH (19:55)
[2025-07-13] MEDS: IBUPROFEN 400 MG TAB PO PRN (20:25)
--- NOTE | 2025-07-13 21:36 | DVHPN2 ---
Progress Note - Dictate Date Seen: Jul 13, 2025 Medical Necessity Reason Pt with a Central, PICC or Fol: Yes Subjective Ms. Sol is a 34 years old female with a history of seizure disorder, she was brought to the [facility] on 07/11/25 with a chief complaint of seizure. (According to Sukhi, she had 15 seizures within 1 hour at home) I saw on 08/07/2025 for seizure (Dr. Vickie Angulo's note dated 06/06/25: she had 70 witnessed seizure activity). I have seen and examined the patient, I have talked to her nurse, she is intubated, sedated, responsive to strong painful stimuli Fentanyl 50 mcg/hour, propofol 35 mcg/min, Versed 7 mg/hour ABG, 06/06/2025 (after 70 seizures): Unremarkable 07/11/2025: Unremarkable UDS, 06/06/2025: Benzo, opiates Plasma alcohol, 06/06/25: 3.6 Valproic acid, 06/07/2025: 39.4 Keppra, 06/06/2025: WBC/HB/PLT/MCV, 07/11/2025: 7.8/11.5/293/9/1.1 BMP, 07/11/2025: Unremarkable Folic acid, : 16 CT head, 06/06/2025: No acute intracranial abnormality. CT head, 07/11/2025: 1. No acute intracranial process. 2. Paranasal sinus disease, most severely involving the right maxillary and ethmoid sinuses. 3. Fluid density and sclerosis of the bilateral mastoid air cells which may be due to chronic mastoiditis. 4. Partially visualized endotracheal tube and OG tube vital signs Vital Sign Date Time Temp Pulse Resp B/P (MAP) Pulse Ox O2 Delivery O2 Flow Rate FiO2 07/13/25 20:25 100.8 07/13/25 20:16 90 17 159/100 (119) 100 30 07/13/25 20:00 Mechanical Ventilator+ Total Intake and Output 07/12/25 07/12/25 07/13/25 15:00 23:00 07:00 Intake Total 1045.90 ml 978.02 ml 967.86 ml Output Total 450 ml 1250 ml Balance 1045.90 ml 528.02 ml -282.14 ml medications Current Medications Medications Dose Ordered Sig/La Route Start Time Stop Time Status Last Admin Dose Admin Propofol 100 ml @ 2.31 mls/hr Q24H IV 07/11/25 05:45 07/13/25 15:35 16.17 MLS/HR Midazolam HCl 50 ml @ 1 mls/hr Q24H IV 07/11/25 07:15 07/13/25 18:43 7 MLS/HR Sodium Chloride 1,000 ml @ 60 mls/hr [id number] IV 07/11/25 13:30 07/13/25 15:34 60 MLS/HR Ondansetron HCl 4 mg Q4HP PRN IV 07/11/25 13:30 Patient Own Medication 1 tab BID PO 07/11/25 22:00 UNV Levetiracetam 100 ml @ 400 mls/hr BID IV 07/11/25 22:00 07/13/25 07:25 400 MLS/HR Patient Own Medication 200 mg Q12H IV 07/11/25 17:30 UNV Valproate Sodium 500 mg/Sodium Chloride 105 ml @ 105 mls/hr Q8H IV 07/11/25 17:30 07/13/25 17:59 105 MLS/HR Lorazepam 1 mg Q5MINP PRN IV 07/11/25 17:30 Hydralazine HCl 10 mg Q6HP PRN IV 07/11/25 18:00 07/13/25 20:01 10 MG Lacosamide 200 mg/ Sodium Chloride 120 ml @ 120 mls/hr BID IV 07/11/25 22:00 07/13/25 10:02 120 MLS/HR Fentanyl Citrate 250 ml @ 2.5 mls/hr Q24H IV 07/11/25 22:15 07/11/25 22:27 2.5 MLS/HR Pantoprazole Sodium 40 mg DAILY IV 07/13/25 10:00 07/13/25 07:25 40 MG Enoxaparin Sodium 40 mg DAILY SC 07/13/25 10:00 07/13/25 07:25 40 MG Acetaminophen 650 mg Q6HP PRN PO 07/12/25 15:30 07/13/25 15:35 650 MG Ibuprofen 400 mg Q6HP PRN PO 07/12/25 18:30 07/13/25 20:25 400 MG Vancomycin HCl 0 ml @ 0 mls/hr UD IV 07/13/25 08:45 Meropenem 50 ml @ 17 mls/hr Q8H IV 07/13/25 17:00 07/13/25 16:52 17 MLS/HR Enteral Nutritional Formula 1,000 ml 55ML/HR GT 07/13/25 09:00 Vancomycin HCl 250 ml @ 166.667 mls/hr Q12H IV 07/13/25 20:00 07/13/25 19:55 166.667 MLS/HR objective The patient is well-nourished and well-developed with no distress. The patient is intubated MENTAL STATUS: Subjective CRANIAL NERVES: Pupils are equal, round and reactive.There are corneal reflexes and doll's eyes phenomenon. No signs of facial weakness. There are gagging or coughing reflexes SENSATION: Responses to pain stimuli. MOTOR: Normal tone in the upper and lower extremity. Normal muscle bulk. No fasciculations. No spontaneous movement. REFLEXES: Deep tendon reflexes are symmetrical. No pathological reflexes. CEREBELLAR/COORDINATION: Deferred GAIT/STATION: deferred laboratory and microbiology Laboratory Tests 07/13/25 02:03 Test 07/13/25 02:03 Range/Units Serum Glucose 74 74-106 mg/dL Problem List Status epileptics Grand mal seizure with atypical features Mixed epileptic and nonepileptic seizures Epileptic seizure Coma Status epileptics Postictal confusion Metabolic/toxic encephalopathy Acute respiratory failure Assessment/Plan Monitoring Supportive treatment ICU care EEG MRI head, (she has a stimulate) Stabilize vitals Respiratory support/vent management Oxygen Keppra 500 mg IV b.i.d. Vimpat 200mg Bid Depakote 500mg IV Q8H Ativan for seizure breakthrough DVT prophylax/Lovenox Ativan for seizure breakthrough More recommendation per clinical course This medical document was created using an electronic medical record system with [employer] dictation system. Although this document has been carefully reviewed, there may still be some phonetic and typographical errors. These areas are purely typographical due to imperfections of the software programs, and do not reflect any compromise in the patient's medical care. Prognosis Guarded Plan discussed with: Other Critical Care Time(min): 35 DOMENIC SHIPMAN MD Jul 13, 2025 21:36
[2025-07-13] MEDS: DEXMEDETOMIDINE HCL IN D5W 100 ML IV SCH (23:20)
[2025-07-14] VITALS (100 sets, daily range): BP systolic 89–163; BP diastolic 45–113; PULSE 60–120; RESP 12–26; TEMP 97–100.6; O2SAT 93–100
[2025-07-14 03:58] LABS: Mean Corpuscular Volume 99.0 fL (80.0-100.0); Nucleated Red Blood Cells % 0.0 %
[2025-07-14 04:00] LABS: Hematocrit 29.0 % (36.0-46.0); Hemoglobin 9.9 g/dL (12.2-16.2); Mean Corpuscular Hemoglobin 33.7 pg (28.0-32.0)
[2025-07-14 04:55] LABS: Alkaline Phosphatase 66 U/L (46-116); Anion Gap 11 (5-15); BUN/Creatinine Ratio 6.7 (10.0-20.0); Carbon Dioxide 24 mmol/L (20-31); Chloride 106 mmol/L (98-107); Glucose 75 mg/dL (74-106); Magnesium 2.0 mg/dL (1.6-2.6); Sodium 141 mmol/L (136-145); Total Protein 6.2 g/dL (5.7-8.2)
[2025-07-14 04:56] LABS: Albumin 3.5 g/dL (3.2-4.8)
[2025-07-14 04:57] LABS: Bilirubin, Total 0.6 mg/dL (0.2-1.0)
[2025-07-14 04:58] LABS: Alanine Aminotransferase 9 U/L (7-40); Blood Urea Nitrogen 5 mg/dL (9-23); Calcium 8.7 mg/dL (8.7-10.4); Potassium 3.3 mmol/L (3.5-5.1)
[2025-07-14] MEDS: POTASSIUM CHL 20MEQ/100ML 100 ML IV ONE (05:44)
--- NOTE | 2025-07-14 05:54 | DVH ---
CHEST RADIOGRAPH Indication: INTUBATED Technique: Single frontal view of the chest was obtained COMPARISON: XY CHEST PORTABLE on DOS: 07/13/25, XY CHEST XRAY 1 VIEW on DOS: 07/11/25, XY CHEST XRAY 1 EW on DOS: 06/10/25, XY CHEST XRAY 1 VIEW on DOS: 06/09/25, XY CHEST PORTABLE on DOS: 06/08/25 FINDINGS: Lines and Tubes: Endotracheal tube and enteric catheter in satisfactory position. Lungs: Suggestion Pleura: No effusion. No pneumothorax. Cardiomediastinal contours: Unremarkable Bones: Unremarkable IMPRESSION: Lines and tubes in satisfactory position. No significant interval change.
[2025-07-14 08:18] LABS: Base Excess -1.9 mmol/L (-2.0-3.0)
[2025-07-14] MEDS: LACTULOSE 20Gm/30ML SOLN PO SCH (10:00)
[2025-07-14] MEDS: LORazepam 2MG/ML-1ML VIAL IV PRN (12:51)
[2025-07-14] MEDS: ONDANSETRON HCL 4 MG/2 ML VIAL IV PRN (12:51)
[2025-07-14] MEDS: MORPHINE SULFATE INJ 2 MG/ml SYRG IV PRN (13:30)
[2025-07-14] MEDS: HALOPERIDOL LACTATE 5 MG/ML INJ VIAL IM PRN (16:05)
[2025-07-14] MEDS: ALBUTEROL SULF 2.5 MG/0.5ML(0.5%) NEB SOLN NEB PRN (16:22)
[2025-07-14] MEDS: IPRATROPIUM BROM 0.5 MG/2.5ML INH SOL NEB PRN (16:22)
[2025-07-14] MEDS ORDERED: LORazepam 2MG/ML-1ML VIAL IV PRN (16:45)
--- NOTE | 2025-07-14 18:20 | DVHPNRES ---
Progress Note Date Seen: Jul 14, 2025 Resident Creating Document: YAMILKA FAY RESIDENT Medical Necessity Reason Pt with a Central, PICC or Fol: Yes Subjective Review of Systems This is a 34-year-old female with past medical history of seizure, anxiety, depression, previous extubated intubation due to status epilepticus brought to the hospital by via EMS for breakthrough seizures. En route To hospital she was experiencing multiple unprovoked and sudden seizure episodes and was given Versed 7.5 mg. In the ED patient still actively seizing and received multiple doses of Ativan and later intubated to protect the airway. Patient was seen and examined in the ICU. Patient was on CPAP trial today and later extubated, confused agitated try to come out from the bed. Given haloperidol 5 mg IM and Ativan 1 mg IV which calm the patient. Urine bacterial culture showed ESBL, E coli. Objective vital signs Vital Sign Date Time Temp Pulse Resp B/P (MAP) Pulse Ox O2 Delivery O2 Flow Rate FiO2 07/14/25 18:11 96 07/14/25 18:04 18 98 Room Air* 0 30 21 07/14/25 18:00 99.0 99.0 Total Intake and Output 07/13/25 07/13/25 07/14/25 15:00 23:00 07:00 Intake Total 1330.36 ml 1077.19 ml 1006.53 ml Output Total 1750 ml 625 ml Balance 1330.36 ml -672.81 ml 381.53 ml medications Current Medications Medications Dose Ordered Sig/La Route Start Time Stop Time Status Last Admin Dose Admin Propofol 100 ml @ 2.31 mls/hr Q24H IV 07/11/25 05:45 07/14/25 01:48 16.17 MLS/HR Midazolam HCl 50 ml @ 1 mls/hr Q24H IV 07/11/25 07:15 07/14/25 01:42 5 MLS/HR Sodium Chloride 1,000 ml @ 60 mls/hr [id number] IV 07/11/25 13:30 07/14/25 05:47 60 MLS/HR Ondansetron HCl 4 mg Q4HP PRN IV 07/11/25 13:30 07/14/25 12:51 4 MG Patient Own Medication 1 tab BID PO 07/11/25 22:00 UNV Levetiracetam 100 ml @ 400 mls/hr BID IV 07/11/25 22:00 07/14/25 07:33 400 MLS/HR Patient Own Medication 200 mg Q12H IV 07/11/25 17:30 UNV Valproate Sodium 500 mg/Sodium Chloride 105 ml @ 105 mls/hr Q8H IV 07/11/25 17:30 07/14/25 17:33 105 MLS/HR Lorazepam 1 mg Q5MINP PRN IV 07/11/25 17:30 07/14/25 16:20 1 MG Hydralazine HCl 10 mg Q6HP PRN IV 07/11/25 18:00 07/13/25 20:01 10 MG Lacosamide 200 mg/ Sodium Chloride 120 ml @ 120 mls/hr BID IV 07/11/25 22:00 07/14/25 10:21 120 MLS/HR Fentanyl Citrate 250 ml @ 2.5 mls/hr Q24H IV 07/11/25 22:15 07/14/25 01:48 2.5 MLS/HR Pantoprazole Sodium 40 mg DAILY IV 07/13/25 10:00 07/14/25 07:32 40 MG Enoxaparin Sodium 40 mg DAILY SC 07/13/25 10:00 07/14/25 07:35 40 MG Acetaminophen 650 mg Q6HP PRN PO 07/12/25 15:30 07/13/25 15:35 650 MG Ibuprofen 400 mg Q6HP PRN PO 07/12/25 18:30 07/14/25 07:42 400 MG Vancomycin HCl 0 ml @ 0 mls/hr UD IV 07/13/25 08:45 Meropenem 50 ml @ 17 mls/hr Q8H IV 07/13/25 17:00 07/14/25 16:04 17 MLS/HR Enteral Nutritional Formula 1,000 ml 55ML/HR GT 07/13/25 09:00 Vancomycin HCl 250 ml @ 166.667 mls/hr Q12H IV 07/13/25 20:00 07/14/25 07:30 166.667 MLS/HR Lactulose 30 ml DAILY PO 07/14/25 10:00 Ipratropium [place] 0.5 mg Q6HPRN PRN NEB 07/14/25 13:15 07/14/25 16:22 0.5 MG Albuterol 2.5 mg Q6HPRN PRN NEB 07/14/25 13:15 07/14/25 16:22 2.5 MG Morphine Sulfate 1 mg Q6HP PRN IV 07/14/25 13:15 07/14/25 13:30 1 MG Haloperidol Lactate 5 mg Q4HP PRN IM 07/14/25 16:00 07/14/25 16:05 5 MG Lorazepam 1 mg Q4HP PRN IV 07/14/25 16:45 UNV Examination Physical examination: General Appearance: confused, sedated on room air HEENT: Atraumatic, PERRLA, EOMI, Mucous membrane moist/pink Respiratory: Clear to auscultation, Normal air movement Cardiovascular: Regular rate, Normal S1, Normal S2, No murmurs, no chest wall tenderness Abdominal: Normal bowel sounds, Soft, No tenderness, No hepatospenomegaly, No masses Extremities: No clubbing, No cyanosis, No edema, Normal pulses, No tenderness/swelling Skin: No rashes, No breakdown, No significant lesion Neuro: Strength at 5/5 X4 ext, Normal tone, Sensation intact, Cranial nerves 3- 12 NL, Reflexes 2+ Psych/Mental Status: could not be assessed laboratory and microbiology Laboratory Tests 07/14/25 03:15 Test 07/14/25 03:15 Range/Units Serum Glucose 75 74-106 mg/dL Microbiology Date/Time Source Procedure Growth Status 07/13/25 02:03 Blood Blood Culture - Preliminary NO GROWTH AFTER 24 HOURS OF INCUBATION. Resulted 07/12/25 20:42 Voided Urine Urine Culture - Final Escherichia coli - ESBL Complete 07/12/25 05:40 Nose MRSA Screen - Final Complete 07/11/25 06:00 Sputum Gram Stain - Final Complete 07/11/25 06:00 Sputum Respiratory Culture - Final Complete Labs and/or images reviewed: Labs reviewed by me, Image(s) reviewed by me Problem List/Assessment/Plan Problem List/Assessment/Plan Assessment and plan: NEURO: Acute metabolic encephalopathy due to breakthrough seizures, status post extubation Status epilepticus History of seizure disorder Noncompliant with antiseizure medication Cocaine abuse disorder - CT head without contrast demonstrated no acute intracranial process, chronic mastoiditis, paranasal sinus disease involved right maxillary and ethmoid sinuses - MRI could not be done as patient has a stimulator on the back - EEG pending - Neurology on board - Pending blood culture, urinary bacterial culture - UDS is positive for cocaine - patient is on propofol, Versed and fentanyl - continue IV Keppra, lacosamide and valproate GENITOURINARY: Ruled out rhabdomyolysis Acute complicated cystitis - Multiple episodes of generalized tonic-clonic seizure - CPK is 30 - Urine bacterial culture preliminary result showed Gram-negative rods - IV meropenem 1 g Q 8 hours METABOLIC: Hypokalemia - replenished HEME: Chronic macrocytic anaemia - Monitor H&H INFECTIOUS DISEASE: Acute complicated cystitis - Urine bacterial culture showed ESBL E coli - Blood culture did not reveal any growth in 24 hours of incubation - IV meropenem 1 g Q 8 hours DIET: NPO DVT prophylax: Lovenox GI prophylaxis: Protonix Bowel regimen: Code status: Full code LINES/DRAINS/ACCESS: ETT: Intubated on 07/11/25 IV access: rt femoral central line placed on 07/11/2025 Drips: Propofol, Versed, fentanyl Gross catheter: Placed on 07/11/2025 DISPOSITION: ICU Patient's status discussed with care partner time spent more than 83 minutes, including patient care, chart review, and updating the family. Excluding any procedures. Case discussed with Dr. Adams Plan discussed with: Other (Mom, RN) My Orders My Orders Orders - YAMILKA FAY RESIDENT Procedure Category Date Status Time Abg W/ Co-Ox RT 07/14/25 Logged 04:00 Lactulose Oral PHA 07/14/25 In Process 10:00 Ipratropium Medneb PHA 07/14/25 In Process (Atrovent Medneb) 13:15 Albuterol Medneb PHA 07/14/25 In Process (Ventolin Medneb) 13:15 Morphine Sulfate PHA 07/14/25 In Process Injection 13:15 * Swallow Request ST 07/14/25 Transmitted 20:00 Pt Request For Service PT 07/14/25 Logged 13:14 Complete Blood Count LAB 07/15/25 Verified 04:00 Creatinine LAB 07/15/25 Verified 04:00 Haloperidol Lactate PHA 07/14/25 In Process Injection (Haldol) 16:00 Comprehensive LAB 07/15/25 Verified Metabolic Panel 04:00 Magnesium LAB 07/15/25 Verified 04:00 YAMILKA FAY RESIDENT Jul 14, 2025 18:20
--- NOTE | 2025-07-14 20:21 | DVHPN2 ---
Progress Note - Dictate Date Seen: Jul 14, 2025 Medical Necessity Reason Pt with a Central, PICC or Fol: Yes Subjective Ms. Sol is a 34 years old female with a history of seizure disorder, she was brought to the [facility] on 07/11/25 with a chief complaint of seizure. (According to Sukhi, she had 15 seizures within 1 hour at home) I saw on 08/07/2025 for seizure (Dr. Vickie Angulo's note dated 06/06/25: she had 70 witnessed seizure activity). I have seen and examined the patient, I have talked to her nurse, she is extubated, but she is nonresponsive to verbal stimuli, she was agitated, ABG, 06/06/2025 (after 70 seizures): Unremarkable 07/11/2025: Unremarkable UDS, 06/06/2025: Benzo, opiates Plasma alcohol, 06/06/25: 3.6 Valproic acid, 06/07/2025: 39.4 Keppra, 06/06/2025: WBC/HB/PLT/MCV, 07/11/2025: 7.8/11.5/293/9/1.1 BMP, 07/11/2025: Unremarkable Folic acid, : 16 CT head, 06/06/2025: No acute intracranial abnormality. CT head, 07/11/2025: 1. No acute intracranial process. 2. Paranasal sinus disease, most severely involving the right maxillary and ethmoid sinuses. 3. Fluid density and sclerosis of the bilateral mastoid air cells which may be due to chronic mastoiditis. 4. Partially visualized endotracheal tube and OG tube vital signs Vital Sign Date Time Temp Pulse Resp B/P (MAP) Pulse Ox O2 Delivery O2 Flow Rate FiO2 07/14/25 18:30 105 12 148/99 (115) 99 07/14/25 18:22 Room Air* 0 21 07/14/25 18:00 99.0 99.0 Total Intake and Output 07/13/25 07/13/25 07/14/25 15:00 23:00 07:00 Intake Total 1330.36 ml 1077.19 ml 1006.53 ml Output Total 1750 ml 625 ml Balance 1330.36 ml -672.81 ml 381.53 ml medications Current Medications Medications Dose Ordered Sig/La Route Start Time Stop Time Status Last Admin Dose Admin Propofol 100 ml @ 2.31 mls/hr Q24H IV 07/11/25 05:45 07/14/25 01:48 16.17 MLS/HR Midazolam HCl 50 ml @ 1 mls/hr Q24H IV 07/11/25 07:15 07/14/25 01:42 5 MLS/HR Sodium Chloride 1,000 ml @ 60 mls/hr [id number] IV 07/11/25 13:30 07/14/25 05:47 60 MLS/HR Ondansetron HCl 4 mg Q4HP PRN IV 07/11/25 13:30 07/14/25 12:51 4 MG Patient Own Medication 1 tab BID PO 07/11/25 22:00 UNV Levetiracetam 100 ml @ 400 mls/hr BID IV 07/11/25 22:00 07/14/25 07:33 400 MLS/HR Patient Own Medication 200 mg Q12H IV 07/11/25 17:30 UNV Valproate Sodium 500 mg/Sodium Chloride 105 ml @ 105 mls/hr Q8H IV 07/11/25 17:30 07/14/25 17:33 105 MLS/HR Lorazepam 1 mg Q5MINP PRN IV 07/11/25 17:30 07/14/25 16:20 1 MG Hydralazine HCl 10 mg Q6HP PRN IV 07/11/25 18:00 07/13/25 20:01 10 MG Lacosamide 200 mg/ Sodium Chloride 120 ml @ 120 mls/hr BID IV 07/11/25 22:00 07/14/25 10:21 120 MLS/HR Fentanyl Citrate 250 ml @ 2.5 mls/hr Q24H IV 07/11/25 22:15 07/14/25 01:48 2.5 MLS/HR Pantoprazole Sodium 40 mg DAILY IV 07/13/25 10:00 07/14/25 07:32 40 MG Enoxaparin Sodium 40 mg DAILY SC 07/13/25 10:00 07/14/25 07:35 40 MG Acetaminophen 650 mg Q6HP PRN PO 07/12/25 15:30 07/13/25 15:35 650 MG Ibuprofen 400 mg Q6HP PRN PO 07/12/25 18:30 07/14/25 07:42 400 MG Meropenem 50 ml @ 17 mls/hr Q8H IV 07/13/25 17:00 07/14/25 16:04 17 MLS/HR Enteral Nutritional Formula 1,000 ml 55ML/HR GT 07/13/25 09:00 Lactulose 30 ml DAILY PO 07/14/25 10:00 Ipratropium [place] 0.5 mg Q6HPRN PRN NEB 07/14/25 13:15 07/14/25 16:22 0.5 MG Albuterol 2.5 mg Q6HPRN PRN NEB 07/14/25 13:15 07/14/25 16:22 2.5 MG Morphine Sulfate 1 mg Q6HP PRN IV 07/14/25 13:15 07/14/25 13:30 1 MG Haloperidol Lactate 5 mg Q4HP PRN IM 07/14/25 16:00 07/14/25 16:05 5 MG Lorazepam 1 mg Q4HP PRN IV 07/14/25 16:45 objective The patient is well-nourished and well-developed with no distress. MENTAL STATUS: Subjective CRANIAL NERVES: Pupils are equal, round and reactive. There is conjugated eye movement. Sensorimotor examined in bilateral trigeminal distribution is unremarkable. No signs of facial weakness. SENSATION: Responses to pain stimuli. MOTOR: Normal tone in the upper and lower extremity. Normal muscle bulk. No fasciculations. No spontaneous movement when I was in the unit REFLEXES: Deep tendon reflexes are symmetrical. No pathological reflexes. CEREBELLAR/COORDINATION: Deferred GAIT/STATION: deferred laboratory and microbiology Laboratory Tests 07/14/25 03:15 Test 07/14/25 03:15 Range/Units Serum Glucose 75 74-106 mg/dL Problem List Status epileptics Grand mal seizure with atypical features Mixed epileptic and nonepileptic seizures Epileptic seizure Coma resolved Status epileptics Postictal confusion Metabolic/toxic encephalopathy Acute respiratory failure, improving Assessment/Plan Monitoring Supportive treatment ICU care EEG MRI head, (she has a stimulate) Stabilize vitals Respiratory support Oxygen Keppra 500 mg IV b.i.d. Vimpat 200mg Bid Depakote 500mg IV Q8H Ativan for seizure breakthrough DVT prophylax/Lovenox Ativan for seizure breakthrough More recommendation per clinical course This medical document was created using an electronic medical record system with [employer] dictation system. Although this document has been carefully reviewed, there may still be some phonetic and typographical errors. These areas are purely typographical due to imperfections of the software programs, and do not reflect any compromise in the patient's medical care. Prognosis Poor Plan discussed with: Other Critical Care Time(min): 35 DOMENIC SHIPMAN MD Jul 14, 2025 20:21
[2025-07-14] MEDS: ACETAMINOPHEN IV 1000 MG/100ML (10MG/ML) IV ONE (23:06)
[2025-07-15] VITALS (19 sets, daily range): BP systolic 120–158; BP diastolic 81–107; PULSE 85–109; RESP 16–29; TEMP 98.4–100.4; O2SAT 87–100
[2025-07-15 04:47] LABS: Hemoglobin 10.1 g/dL (12.2-16.2)
[2025-07-15 04:53] LABS: Hematocrit 29.0 % (36.0-46.0); Mean Corpuscular Hemoglobin 33.9 pg (28.0-32.0); Mean Corpuscular Volume 97.8 fL (80.0-100.0); Nucleated Red Blood Cells % 0.0 %
[2025-07-15 04:58] LABS: Alanine Aminotransferase 14 U/L (7-40); Albumin 3.9 g/dL (3.2-4.8); Alkaline Phosphatase 66 U/L (46-116); Anion Gap 13 (5-15); Calcium 8.9 mg/dL (8.7-10.4); Carbon Dioxide 24 mmol/L (20-31); Chloride 105 mmol/L (98-107); Glucose 79 mg/dL (74-106); Potassium 3.5 mmol/L (3.5-5.1); Sodium 142 mmol/L (136-145)
[2025-07-15 04:59] LABS: Magnesium 1.8 mg/dL (1.6-2.6)
[2025-07-15 05:00] LABS: Total Protein 6.9 g/dL (5.7-8.2)
[2025-07-15 05:01] LABS: Bilirubin, Total 0.6 mg/dL (0.2-1.0)
[2025-07-15 05:15] LABS: BUN/Creatinine Ratio 7.0 (10.0-20.0); Blood Urea Nitrogen < 5 mg/dL (9-23)
--- NOTE | 2025-07-15 05:57 | DVH ---
CHEST RADIOGRAPH Indication: Status post extubation Technique: Single frontal view of the chest was obtained COMPARISON: XY CHEST PORTABLE on DOS: 07/14/25, XY CHEST PORTABLE on DOS: 07/13/25, XY CHEST XRAY 1 VIEW on DOS: 07/11/25, XY CHEST XRAY 1 VIEW on DOS: 06/10/25, XY CHEST XRAY 1 VIEW on DOS: 06/09/25 FINDINGS: Lines and Tubes: Status post interval extubation and removal of enteric catheter. Lungs: Increased right hemithoracic opacification may be positional related to overlying soft tissues . No evidence of focal consolidation. No pneumothorax. Cardiomediastinal contours: Unremarkable Bones: Unremarkable IMPRESSION: 1. Status post interval extubation and removal of enteric catheter. 2. No definite evidence of acute cardiopulmonary disease. Increased right hemithoracic opacification may be positional related overlying soft tissues.
--- NOTE | 2025-07-15 14:00 | DVHPN2 ---
Progress Note - Dictate Date Seen: Jul 15, 2025 Medical Necessity Reason Pt with a Central, PICC or Fol: Yes vital signs Vital Sign Date Time Temp Pulse Resp B/P (MAP) Pulse Ox O2 Delivery O2 Flow Rate FiO2 07/15/25 12:01 109 17 138/89 (105) 98 07/15/25 12:00 Room Air* 0 21 07/15/25 08:00 99.0 99.0 Total Intake and Output 07/14/25 07/14/25 07/15/25 15:00 23:00 07:00 Intake Total 1131.850 ml 855 ml 635 ml Output Total 750 ml 2075 ml Balance 1131.850 ml 105 ml -1440 ml medications Current Medications Medications Dose Ordered Sig/La Route Start Time Stop Time Status Last Admin Dose Admin Propofol 100 ml @ 2.31 mls/hr Q24H IV 07/11/25 05:45 07/14/25 01:48 16.17 MLS/HR Midazolam HCl 50 ml @ 1 mls/hr Q24H IV 07/11/25 07:15 07/14/25 01:42 5 MLS/HR Sodium Chloride 1,000 ml @ 60 mls/hr [id number] IV 07/11/25 13:30 07/15/25 00:42 60 MLS/HR Ondansetron HCl 4 mg Q4HP PRN IV 07/11/25 13:30 07/14/25 21:55 4 MG Patient Own Medication 1 tab BID PO 07/11/25 22:00 UNV Levetiracetam 100 ml @ 400 mls/hr BID IV 07/11/25 22:00 07/15/25 09:01 400 MLS/HR Patient Own Medication 200 mg Q12H IV 07/11/25 17:30 UNV Valproate Sodium 500 mg/Sodium Chloride 105 ml @ 105 mls/hr Q8H IV 07/11/25 17:30 07/15/25 09:02 105 MLS/HR Lorazepam 1 mg Q5MINP PRN IV 07/11/25 17:30 07/15/25 08:18 1 MG Hydralazine HCl 10 mg Q6HP PRN IV 07/11/25 18:00 07/13/25 20:01 10 MG Lacosamide 200 mg/ Sodium Chloride 120 ml @ 120 mls/hr BID IV 07/11/25 22:00 07/15/25 10:17 120 MLS/HR Fentanyl Citrate 250 ml @ 2.5 mls/hr Q24H IV 07/11/25 22:15 07/14/25 01:48 2.5 MLS/HR Pantoprazole Sodium 40 mg DAILY IV 07/13/25 10:00 07/15/25 09:02 40 MG Enoxaparin Sodium 40 mg DAILY SC 07/13/25 10:00 07/14/25 07:35 40 MG Acetaminophen 650 mg Q6HP PRN PO 07/12/25 15:30 07/13/25 15:35 650 MG Ibuprofen 400 mg Q6HP PRN PO 07/12/25 18:30 07/14/25 07:42 400 MG Meropenem 50 ml @ 17 mls/hr Q8H IV 07/13/25 17:00 07/15/25 09:02 17 MLS/HR Enteral Nutritional Formula 1,000 ml 55ML/HR GT 07/13/25 09:00 Lactulose 30 ml DAILY PO 07/14/25 10:00 Ipratropium [place] 0.5 mg Q6HPRN PRN NEB 07/14/25 13:15 07/14/25 16:22 0.5 MG Albuterol 2.5 mg Q6HPRN PRN NEB 07/14/25 13:15 07/14/25 16:22 2.5 MG Morphine Sulfate 1 mg Q6HP PRN IV 07/14/25 13:15 07/15/25 05:37 1 MG Haloperidol Lactate 5 mg Q4HP PRN IM 07/14/25 16:00 07/15/25 12:08 5 MG Lorazepam 1 mg Q4HP PRN IV 07/14/25 16:45 laboratory and microbiology Laboratory Tests 07/15/25 03:30 Test 07/15/25 03:30 Range/Units Serum Glucose 79 74-106 mg/dL Assessment/Plan Covering for Dr. Avalos Impression Acute hypoxemic respiratory failure Substance abuse Atelectasis Seizures Patient seen and examined Events s/p extubation Low oxygen requirements On 2 liters nasal cannula Twitches noted after extubation, Ativan given for ? seizures Labs and imaging reviewed Management Supplemental oxygen Titrate to maintain sats 90% or above Incentive spirometry Continue antibiotics F/u cultures Bronchodilators Monitor renal function Monitor electrolytes Supplement as needed Antiepileptics as ordered F/u neurology Okay to downgrade to CORIE from pulmonary standpoint DVT prophylaxis Critical care time 35 minutes Plan discussed with: Patient YASSINE GONZALEZ MD Jul 15, 2025 14:00
--- NOTE | 2025-07-15 16:22 | DVHPN2 ---
Progress Note Date Seen: Jul 15, 2025 Has the PT tested + for MRSA If YES, has PT been informed?: No Medical Necessity Reason Pt with a Central, PICC or Fol: Yes Subjective Patient reports: Feels worse (Patient has had two episodes of seizure in the ICU broke after receiving Ativan) Objective vital signs Vital Sign Date Time Temp Pulse Resp B/P (MAP) Pulse Ox O2 Delivery O2 Flow Rate FiO2 07/15/25 14:51 90 17 153/107 07/15/25 14:45 Room Air* 0 21 07/15/25 14:40 98.4 96 98.4 Total Intake and Output 07/14/25 07/14/25 07/15/25 15:00 23:00 07:00 Intake Total 1131.850 ml 855 ml 635 ml Output Total 750 ml 2075 ml Balance 1131.850 ml 105 ml -1440 ml medications Current Medications Medications Dose Ordered Sig/La Route Start Time Stop Time Status Last Admin Dose Admin Propofol 100 ml @ 2.31 mls/hr Q24H IV 07/11/25 05:45 07/14/25 01:48 16.17 MLS/HR Midazolam HCl 50 ml @ 1 mls/hr Q24H IV 07/11/25 07:15 07/14/25 01:42 5 MLS/HR Sodium Chloride 1,000 ml @ 60 mls/hr [id number] IV 07/11/25 13:30 07/15/25 00:42 60 MLS/HR Ondansetron HCl 4 mg Q4HP PRN IV 07/11/25 13:30 07/14/25 21:55 4 MG Patient Own Medication 1 tab BID PO 07/11/25 22:00 UNV Levetiracetam 100 ml @ 400 mls/hr BID IV 07/11/25 22:00 07/15/25 09:01 400 MLS/HR Patient Own Medication 200 mg Q12H IV 07/11/25 17:30 UNV Valproate Sodium 500 mg/Sodium Chloride 105 ml @ 105 mls/hr Q8H IV 07/11/25 17:30 07/15/25 09:02 105 MLS/HR Lorazepam 1 mg Q5MINP PRN IV 07/11/25 17:30 07/15/25 08:18 1 MG Hydralazine HCl 10 mg Q6HP PRN IV 07/11/25 18:00 07/13/25 20:01 10 MG Lacosamide 200 mg/ Sodium Chloride 120 ml @ 120 mls/hr BID IV 07/11/25 22:00 07/15/25 10:17 120 MLS/HR Fentanyl Citrate 250 ml @ 2.5 mls/hr Q24H IV 07/11/25 22:15 07/14/25 01:48 2.5 MLS/HR Pantoprazole Sodium 40 mg DAILY IV 07/13/25 10:00 07/15/25 09:02 40 MG Enoxaparin Sodium 40 mg DAILY SC 07/13/25 10:00 07/14/25 07:35 40 MG Acetaminophen 650 mg Q6HP PRN PO 07/12/25 15:30 07/13/25 15:35 650 MG Ibuprofen 400 mg Q6HP PRN PO 07/12/25 18:30 07/14/25 07:42 400 MG Meropenem 50 ml @ 17 mls/hr Q8H IV 07/13/25 17:00 07/15/25 09:02 17 MLS/HR Enteral Nutritional Formula 1,000 ml 55ML/HR GT 07/13/25 09:00 Lactulose 30 ml DAILY PO 07/14/25 10:00 Ipratropium Mercedes 0.5 mg Q6HPRN PRN NEB 07/14/25 13:15 07/14/25 16:22 0.5 MG Albuterol 2.5 mg Q6HPRN PRN NEB 07/14/25 13:15 07/14/25 16:22 2.5 MG Morphine Sulfate 1 mg Q6HP PRN IV 07/14/25 13:15 07/15/25 14:51 1 MG Haloperidol Lactate 5 mg Q4HP PRN IM 07/14/25 16:00 07/15/25 12:08 5 MG Lorazepam 1 mg Q4HP PRN IV 07/14/25 16:45 Examination: GENERAL:Normal (34 years old woman, awake, lethargic, answer question no apparent distress), HEENT:Normal, NECK:Normal, LUNGS:Normal, CVS:Normal, ABDOMEN:Normal, MSK:Normal, SKIN:Normal, NEURO:Normal (Patient is AO x3, strength and sensory intact) laboratory and microbiology Laboratory Tests 07/15/25 03:30 Test 07/15/25 03:30 Range/Units Serum Glucose 79 74-106 mg/dL Microbiology Date/Time Source Procedure Growth Status 07/13/25 02:03 Blood Blood Culture - Preliminary NO GROWTH AFTER 48 HOURS OF INCUBATION. Resulted 07/12/25 20:42 Voided Urine Urine Culture - Final Escherichia coli - ESBL Complete 07/12/25 05:40 Nose MRSA Screen - Final Complete 07/11/25 06:00 Sputum Gram Stain - Final Complete 07/11/25 06:00 Sputum Respiratory Culture - Final Complete Labs and/or images reviewed: Labs reviewed by me, Image(s) reviewed by me Problem List/Assessment/Plan Problem List/Assessment/Plan NEURO: Acute metabolic encephalopathy due to breakthrough seizures, status post extubation Status epilepticus History of seizure disorder Noncompliant with antiseizure medication Cocaine abuse disorder - CT head without contrast demonstrated no acute intracranial process, chronic mastoiditis, paranasal sinus disease involved right maxillary and ethmoid sinuses - MRI could not be done as patient has a stimulator on the back - EEG pending - Neurology on board - Pending blood culture, urinary bacterial culture - UDS is positive for cocaine - patient is on propofol, Versed and fentanyl - continue IV Keppra, lacosamide and valproate. Acid level low today. Follow the Neurology GENITOURINARY: Ruled out rhabdomyolysis Acute complicated cystitis - Multiple episodes of generalized tonic-clonic seizure - CPK is 30 - Urine bacterial culture preliminary result showed Gram-negative rods ESBL - IV meropenem 1 g Q 8 hours. For total of seven days METABOLIC: Hypokalemia - replenished HEME: Chronic macrocytic anaemia - Monitor H&H INFECTIOUS DISEASE: Acute complicated cystitis - Urine bacterial culture showed ESBL E coli - Blood culture no growth to date - IV meropenem 1 g Q 8 hours Toradol seven days DIET: NPO DVT prophylax: Lovenox GI prophylaxis: Protonix Bowel regimen: Code status: Full code LINES/DRAINS/ACCESS: ETT: Intubated on 07/11/25 IV access: rt femoral central line placed on 07/11/2025 Drips: Propofol, Versed, fentanyl Gross catheter: Placed on 07/11/2025 Plan discussed with: Patient My Orders My Orders Orders - BONNIE FLORES MD Procedure Category Date Status Time Regular Diet DIET 07/15/25 Transmitted Dinner Dietary Evaluation Review Comments: 1) Continue Vital High Protein @ 55 mL/hr as tolerated 2) Advance to 2g Na diet when medically feasible, pending ST approval 3) Follow-up with neurology 4) Continue to monitor I&O, labs, and skin integrity Expected Outcomes/Goals: 1) nutrition support to meet at least 75% of estimated daily needs 2) diet to advance 3) labs to improve 4) f/u in 2-3 days Date of Service: Jul 15, 2025 Billing Provider: BONNIE FLORES MD Common Visit Codes: [id number] INP/OBS CARE(HIGH) BONNIE FLORES MD Jul 15, 2025 16:22
== END 2025-07-15 20:35 | disposition left against medical advice (07) | DRG 53 ==
LOC: ER 03:49 → EDBD 03:49 → OVERFLOW 13:27 → ICU WEST 07-12 04:26 → EAST 07-15 14:22
PROVIDERS: ADMIT Internal Medicine Pulmonary Disease; ATTEND Internal Medicine Pulmonary Disease
PROC: 06HY33Z Insertion of Infusion Device into Lower Vein, Percutaneous Approach (ICD-10-PCS; principal; 2025-07-11)
PROC: 5A1945Z Respiratory Ventilation, 24-96 Consecutive Hours (ICD-10-PCS; 2025-07-11)
PROC: 0BH17EZ Insertion of Endotracheal Airway into Trachea, Via Natural or Artificial Opening (ICD-10-PCS; 2025-07-11)
DX: G40.401 Other generalized epilepsy and epileptic syndromes, not intractable, with status epilepticus (principal); J96.01 Acute respiratory failure with hypoxia; I10 Essential (primary) hypertension; Z53.29 Procedure and treatment not carried out because of patient's decision for other reasons; J45.909 Unspecified asthma, uncomplicated; D53.9 Nutritional anemia, unspecified; E87.6 Hypokalemia; N30.00 Acute cystitis without hematuria; F41.9 Anxiety disorder, unspecified; F32.A Depression, unspecified; F14.10 Cocaine abuse, uncomplicated; Z83.3 Family history of diabetes mellitus; Z82.49 Family history of ischemic heart disease and other diseases of the circulatory system; Z79.1 Long term (current) use of non-steroidal anti-inflammatories (NSAID); Z79.899 Other long term (current) drug therapy; Z79.2 Long term (current) use of antibiotics; Z91.148 Patient's other noncompliance with medication regimen for other reason
CPT/HCPCS: 31500; 36415; 36556; 36600; 70450; 71045; 80048; 80053; 80164; 80307; 81001; 82550; 82805; 83605; 83735; 84484; 85025; 87040; 87070; 87081; 87086; 87088; 87186; 87205; 93005; 94002; 94003; 94640; 95819; 99152; 99291; 99292; C9254; G0378; J0131; J2185; J2250; J2405; J2470; J2704; J3480

== ENCOUNTER 2025-09-26 03:40 | Inpatient (IN) | payer MEDICAID, OTHER ==
[~2025-09-26] VITALS: Ht 182.9 cm; Wt 85.0 kg
[~2025-09-26 03:40] MED LIST changes: -CEPH500C PO; -IBUP-1454 PO; +LACO200T3 PO; +LEVE500T3 PO
[2025-09-26] MEDS: LORazepam 2MG/ML-1ML VIAL IV ONE ×3 (03:40→05:33)
[2025-09-26] MEDS: SODIUM CHLORIDE 0.9% 1,000 ML IV ONE (03:45)
[2025-09-26 03:49] VITALS: PULSE 95; RESP 32; O2SAT 100
--- NOTE | 2025-09-26 03:49 | ED.PDOC ---
History of Present Illness HPI Comments 35-year-old female, with limited known history, is brought in by friend for chief complaint of seizure-like activity. Per friend, patient was brought to the ED after being witnessed having multiple seizure episodes in row following initial, sudden onset following being awoken with chest pain, this morning. Patient mentions on recent admission at [facility] for seizures, where she was intubated for recurrent seizures. She was diagnosed with right upper extremity DVT and started on Eliquis. She left the hospital yesterday due to being unsatisfied with hospital care. PMH includes seizures since 2015-on Keppra and Vimpat, WPW, asthma, and . REVIEW OF SYSTEMS: General: No fever, no chills, or fatigue HEENT: No sore throat, no earache, no congestion, no neck pain. Cardiac: No chest pain. No palpitations. Lungs: No shortness of breath, no cough. GI: No nausea, no vomiting, no diarrhea, no constipation, no abdominal pain : No dysuria, frequency, or urgency. No hematuria. Musculoskeletal: No joint pain , no joint swelling, no extremity edema. Skin: No rash, no itching. Neuro: No headache, no dizziness, no weakness (And as sated in HPI) PHYSICAL EXAM: General: Awake, alert and oriented. Patient is actively seizing. Skin: Skin in warm, dry and intact. Appropriate color for ethnicity. HEENT: The head is normocephalic and atraumatic. Conjunctivae are clear without exudates or hemorrhage. Sclera is non-icteric. Eyelids are normal in appearance without swelling or lesions. Oral mucosa is pink and moist Neck: The neck is supple with normal range of motion. No JVD. Cardiac: Heart rate and rhythm are normal. No murmurs, gallops, or rubs are auscultated. Respiratory: No signs of respiratory distress. Lung sounds are clear in all lobes bilaterally without rales, rhonchi, or wheezes. Abdominal: Abdomen is soft, non-tender without distention, guarding or rigidity. Bowel sounds are present and normoactive in all four quadrants. Extremities: Upper and lower extremities are atraumatic in appearance without deformity or edema. Psychiatric: Appropriate mood and affect. Good judgement and insight. Chief Complaint: Seizure Time Seen by MD: 03:45 Reviewed Notes: Nurses Notes Allergies: Coded Allergies: NO KNOWN ALLERGIES (Unverified , 09/26/25) Mode of Arrival: Wheelchair Severity: Moderate Timing: Hours Duration: Minutes Prehospital treatment: None Past Medical History PAST MEDICAL HISTORY: Unknown, Unobtainable Surgical History: Unknown, Unobtainable SUPERANNUATION CLERK History: No Pertinent SUPERANNUATION CLERK History Social History Smoker: Unknown, Unobtainable Alcohol: Unknown, Unobtainable Drugs: Unknown, Unobtainable Lives In: Home Was a procedure done? Was a procedure done?: No Differential Dx Considerations may include: Differential diagnoses considered include but are not limited to epilepsy/seizure disorder, GUITAR MAKER infection, electrolyte disturbance, CVA, TBI, drug toxicity or overdose, hypoxia, hypertensive emergency, brain tumor/mass, syncope, movement disorder, other X-Ray, Labs, Meds, VS Vital Signs Date Time Temp Pulse Resp B/P (MAP) Pulse Ox O2 Delivery O2 Flow Rate FiO2 09/26/25 03:52 100.1 94 15 128/82 (97) 100 100.1 09/26/25 03:49 95 32 100 Nasal Cannula* 2 28 Lab Test 09/26/25 04:54 09/26/25 03:59 Range/Units Troponin I High Sensitivity Pending < 3 L </=34 ng/L Levetiracetam Level Pending White Blood Count 6.5 4.4-10.8 10^3/uL Red Blood Count 3.92 L 4.0-5.20 10^6/uL Hemoglobin 13.1 12.2-16.2 g/dL Hematocrit 38.9 36.0-46.0 % Mean Corpuscular Volume 99.4 80.0-100.0 fL Mean Corpuscular Hemoglobin 33.5 H 28.0-32.0 pg Mean Corpuscular Hemoglobin Concent 33.7 32.0-36.0 g/dL Red Cell Distribution Width 12.9 11.8-14.3 % Platelet Count 240 140-450 10^3/uL Mean Platelet Volume 8.3 6.9-10.8 fL Neutrophils (%) (Auto) 55.7 37.0-80.0 % Lymphocytes (%) (Auto) 34.8 10.0-50.0 % Monocytes (%) (Auto) 5.1 0.0-12.0 % Eosinophils (%) (Auto) 3.6 0.0-7.0 % Basophils (%) (Auto) 0.8 0.0-2.0 % Neutrophils # (Auto) 3.6 1.6-8.6 10 ^3/uL Lymphocytes # (Auto) 2.3 0.4-5.4 10 ^3/uL Monocytes # (Auto) 0.3 0-1.3 10 ^3/uL Eosinophils # (Auto) 0.2 0-0.8 10 ^3/uL Basophils # (Auto) 0 0-0.2 10 ^3/uL Nucleated Red Blood Cells 0.1 % Sodium Level 138 136-145 mmol/L Potassium Level 4.2 3.5-5.1 mmol/L Chloride Level 105 98-107 mmol/L Carbon Dioxide Level 22 20-31 mmol/L Anion Gap 11 5-15 Blood Urea Nitrogen 15 9-23 mg/dL Creatinine 1.07 H 0.550-1.02 mg/dL Glomerular Filtration Rate Calc 69 >90 mL/min BUN/Creatinine Ratio 14.0 10.0-20.0 Serum Glucose 87 74-106 mg/dL Calcium Level 9.5 8.7-10.4 mg/dL Total Bilirubin 0.5 0.2-1.0 mg/dL Aspartate Amino Transferase (AST) 17 13-40 U/L Alanine Aminotransferase (ALT) 19 7-40 U/L Alkaline Phosphatase 66 46-116 U/L C-Reactive Protein High Sensitivity 0.09 <1.0 mg/dL Total Protein 8.2 5.7-8.2 g/dL Albumin 4.6 3.2-4.8 g/dL Plasma/Serum Blood Alcohol < 3.0 <10 mg/dL Current Medications Medications (Trade) Dose Ordered Sig/La Route Start Time Stop Time Status Last Admin Sodium Chloride 1,000 ml @ 1,000 mls/hr Q1H ONCE IV 09/26/25 03:45 09/26/25 04:44 DC 09/26/25 03:45 Levetiracetam 100 ml @ 400 mls/hr ONCE ONCE IV 09/26/25 03:45 09/26/25 03:59 DC 09/26/25 04:19 Lorazepam (Ativan Inj) 2 mg ONCE ONCE IV 09/26/25 03:45 09/26/25 03:46 DC 09/26/25 04:34 Lorazepam (Ativan Inj) 2 mg ONCE ONCE IV 09/26/25 03:40 09/26/25 04:56 DC 09/26/25 03:[address] [address] Ph: [phone] DIAGNOSTIC IMAGING Diagnostic Imaging Report : [id number] Signed PATIENT: JULIANA QUARLES ACCT: [id number] UNIT: [id number] : 1990 LOC: ER ROOM / BED: / AGE / SEX: 35 / F ADM STATUS: REG ER SERVICE 6 ORDERING PHYSICIAN: SHIRA GUPTA MD PROCEDURE(s): CXR1 - CHEST XRAY 1 VIEW REASON: Chest pain ORDER NUMBER(s): [id number], ACCESSION NUMBER(s): [id number] MEDICAL RECORDS NUMBER: [id number] PROCEDURE: XY CHEST XRAY 1 VIEW DATE: 09/26/2025 04:10 AM HISTORY: Chest pain Views:1 COMPARISON: XY CHEST PORTABLE on DOS: 07/15/25, XY CHEST PORTABLE on DOS: 07/14/25, XY CHEST PORTABLE on DOS: 07/13/25, XY CHEST XRAY 1 VIEW on DOS: 07/11/25, XY CHEST XRAY 1 VIEW on DOS: 06/10/25 FINDINGS/IMPRESSION: Lungs: The lungs are clear. Mediastinum: Mediastinal structures appear unremarkable... Skeletal: The skeletal structures appear unremarkable. ATED BY: JUAN MARTINEZ MD DICTATED DATE/TIME: 09/26/25441 SIGNED BY: JUAN MARTINEZ MD SIGNED DATE/TIME: 09/26/25441 CC: Time of 1ST Reevaluation: 03:45 Reevaluation 1ST: Unchanged Time of 2ND Reevaluation: 04:05 (Patient currently awake, oriented x 3, speech is clear, no apparent neuro deficit. ) Patient Education/Counseling: Need For Follow Up Family Education/Counseling: No Family Present SEPSIS Sepsis Screen Physician Orders Drug Screen (09/26/25 03:44) Urinalysis (09/26/25 03:44) Levetiracetam (Keppra) (09/26/25 03:44) Seizure Precautions (09/26/25 ) Titrate Oxygen (09/26/25 03:44) Oxygen (09/26/25 ) Continous Pulse Oximetry (09/26/25 03:44) Saline Lock (09/26/25 03:44) Corporate Claims Examiner (09/26/25 ) Electrocardigram (09/26/25 04:07) Chest Xray 1 View (09/26/25 04:07) Troponin-I Hs (09/26/25 05:07) Troponin-I Hs (09/26/25 07:07) Electrocardigram (09/26/25 05:07) Electrocardigram (09/26/25 07:07) Vital Signs Date Time Temp Pulse Resp B/P (MAP) Pulse Ox O2 Delivery O2 Flow Rate FiO2 09/26/25 03:52 100.1 94 15 128/82 (97) 100 100.1 09/26/25 03:49 95 32 100 Nasal Cannula* 2 28 Laboratory Tests Test 09/26/25 03:59 White Blood Count 6.5 10^3/uL (4.4-10.8) Medications Medications Dose Ordered Sig/La Route Start Time Stop Time Status Last Admin Dose Admin Levetiracetam 100 ml @ 400 mls/hr ONCE ONCE IV 09/26/25 03:45 09/26/25 03:59 DC 09/26/25 04:19 Lorazepam 2 mg ONCE ONCE IV 09/26/25 03:40 09/26/25 04:56 DC 09/26/25 03:40 Lorazepam 2 mg ONCE ONCE IV 09/26/25 03:45 09/26/25 03:46 DC 09/26/25 04:34 Sodium Chloride 1,000 ml @ 1,000 mls/hr Q1H ONCE IV 09/26/25 03:45 09/26/25 04:44 DC 09/26/25 03:45 Departure 1 Departure Time of Disposition: 05:04 Impression: Primary Impression: Recurrent seizures Disposition: ADMITTED INPATIENT Condition: Stable Comments 35-year-old female with multiple seizures during the ED observation Patient admitted to hospitalist service for further treatment, evaluation and monitoring. Critical Care Note Critical Care Time?: No Stability Stability form required: No Heart Score Heart Score: Heart Score Response (Comments) Value History N/A 0 EKG N/A 0 Age N/A 0 Risk Factors N/A 0 Troponin N/A 0 Total 0 I personally scribed for SHIRA GUPTA MD ([email or web address]) on 09/26/25 at 03:49. Electronically submitted by Serafin Culp ([email or web address]). I personally scribed for SHIRA GUPTA MD ([email or web address]) on 09/26/25 at 04:15. Electronically submitted by Serafin Culp ([email or web address]). I personally scribed for SHIRA GUPTA MD ([email or web address]) on 09/26/25 at 04:51. Electronically submitted by Serafin Culp ([email or web address]). SHIRA GUPTA MD Sep 26, 2025 03:49
[2025-09-26] MEDS: levETIRAcetam 1000 mg/100ml 100 ML IV ONE (04:19)
[2025-09-26 04:37] LABS: Hematocrit 38.9 % (36.0-46.0); Hemoglobin 13.1 g/dL (12.2-16.2); Mean Corpuscular Hemoglobin 33.5 pg (28.0-32.0); Mean Corpuscular Volume 99.4 fL (80.0-100.0); Nucleated Red Blood Cells % 0.1 %
--- NOTE | 2025-09-26 04:44 | DVH ---
MEDICAL RECORDS NUMBER: [id number] PROCEDURE: XY CHEST XRAY 1 VIEW DATE: 09/26/2025 04:10 AM HISTORY: Chest pain Views:1 COMPARISON: XY CHEST PORTABLE on DOS: 07/15/25, XY CHEST PORTABLE on DOS: 07/14/25, XY CHEST PORTABLE on DOS: 07/13/25, XY CHEST XRAY 1 VIEW on DOS: 07/11/25, XY CHEST XRAY 1 VIEW on DOS: 06/10/25 FINDINGS/IMPRESSION: Lungs: The lungs are clear. Mediastinum: Mediastinal structures appear unremarkable... Skeletal: The skeletal structures appear unremarkable.
[2025-09-26 04:53] LABS: Alanine Aminotransferase 19 U/L (7-40); Albumin 4.6 g/dL (3.2-4.8); Alkaline Phosphatase 66 U/L (46-116); Anion Gap 11 (5-15); BUN/Creatinine Ratio 14.0 (10.0-20.0); Bilirubin, Total 0.5 mg/dL (0.2-1.0); Blood Urea Nitrogen 15 mg/dL (9-23); Calcium 9.5 mg/dL (8.7-10.4); Carbon Dioxide 22 mmol/L (20-31); Chloride 105 mmol/L (98-107); Glucose 87 mg/dL (74-106); Potassium 4.2 mmol/L (3.5-5.1); Sodium 138 mmol/L (136-145)
[2025-09-26 04:58] LABS: Total Protein 8.2 g/dL (5.7-8.2)
[2025-09-26] MEDS: LORazepam 2MG/ML-1ML VIAL ONE (05:22)
[2025-09-26] MEDS ORDERED: ONDANSETRON HCL 4 MG/2 ML VIAL IV PRN (08:00)
[2025-09-26] MEDS ORDERED: ACETAMINOPHEN 325 MG TAB PO PRN (08:00)
[2025-09-26] MEDS ORDERED: NITROGLYCERIN 0.4 MG SL TAB SL PRN (08:00)
[2025-09-26] MEDS ORDERED: DOCUSATE SOD 100 MG CAP PO PRN (08:00)
[2025-09-26] MEDS ORDERED: MORPHINE SULFATE INJ 2 MG/ml SYRG IV PRN (08:00)
[2025-09-26] MEDS ORDERED: APIX5TAB4 PO (08:05)
[2025-09-26] MEDS ORDERED: DIVA1TAB58 PO (08:05)
--- NOTE | 2025-09-26 08:21 | DVHHP2 ---
History of Present Illness Reason for Visit: Seizures History of Present Illness Karime Sol is a 35-year-old female with past medical history of seizures, WPW, asthma, and recent diagnosis of DVT in right upper extremity, who was brought to the hospital for seizure like activity. Patient was admitted here in July and June for similar complaint. She left AMA both times. Past Surgical History: Smoke: No ALCOHOL: none Drugs: None Lives: with Family Domestic Violence: Neg Review of Systems Constitutional: No: Fever, Chills, Sweats, Weakness, Malaise, Other Eyes: No: Pain, Vision change, Conjunctivae inflammation, Eyelid inflammation, Other, Redness ENT: No: Ear pain, Ear discharge, Nose pain, Nose discharge, Nose congestion, Mouth pain, Mouth swelling, Throat pain, Throat swelling, Other Respiratory: No: Cough, Dry, Shortness of breath, SOB with excertion, Wheezing, Hemoptysis, Pleuritic Pain, Sputum, Wheezing, Other Cardiovascular: No: Chest Pain, Palpitations, Orthopnea, Paroxysmal Noc. Dyspnea, Edema, Lt Headedness, Other Gastrointestinal: No: Nausea, Vomiting, Abdominal Pain, Diarrhea, Constipation, Melena, Hematochezia, Other Genitourinary: No Dysuria, No Frequency, No Incontinence, No Hematuria, No Retention, No Other Musculoskeletal: No: other, neck pain, shoulder pain, arm pain, back pain, hand pain, leg pain, foot pain Skin: No: Rash, Lesions, Jaundice, Bruising, Other Neurological: Seizures; No: Weakness, Numbness, Incoordination, Change in speech, Confusion, Other Allergies: Coded Allergies: NO KNOWN ALLERGIES (Unverified , 09/26/25) Exam Vital Signs Vital Signs Date Time Temp Pulse Resp B/P (MAP) Pulse Ox O2 Delivery O2 Flow Rate FiO2 09/26/25 06:00 97.5 82 12 116/76 (89) 100 97.5 09/26/25 03:49 Nasal Cannula* 2 28 Labs/Xrays Labs Test 09/26/25 06:58 09/26/25 04:54 09/26/25 03:59 Range/Units Troponin I High Sensitivity < 3 L </=34 ng/L White Blood Count 6.5 4.4-10.8 10^3/uL Red Blood Count 3.92 L 4.0-5.20 10^6/uL Hemoglobin 13.1 12.2-16.2 g/dL Hematocrit 38.9 36.0-46.0 % Mean Corpuscular Volume 99.4 80.0-100.0 fL Mean Corpuscular Hemoglobin 33.5 H 28.0-32.0 pg Mean Corpuscular Hemoglobin Concent 33.7 32.0-36.0 g/dL Red Cell Distribution Width 12.9 11.8-14.3 % Platelet Count 240 140-450 10^3/uL Mean Platelet Volume 8.3 6.9-10.8 fL Neutrophils (%) (Auto) 55.7 37.0-80.0 % Lymphocytes (%) (Auto) 34.8 10.0-50.0 % Monocytes (%) (Auto) 5.1 0.0-12.0 % Eosinophils (%) (Auto) 3.6 0.0-7.0 % Basophils (%) (Auto) 0.8 0.0-2.0 % Neutrophils # (Auto) 3.6 1.6-8.6 10 ^3/uL Lymphocytes # (Auto) 2.3 0.4-5.4 10 ^3/uL Monocytes # (Auto) 0.3 0-1.3 10 ^3/uL Eosinophils # (Auto) 0.2 0-0.8 10 ^3/uL Basophils # (Auto) 0 0-0.2 10 ^3/uL Nucleated Red Blood Cells 0.1 % Sodium Level 138 136-145 mmol/L Potassium Level 4.2 3.5-5.1 mmol/L Chloride Level 105 98-107 mmol/L Carbon Dioxide Level 22 20-31 mmol/L Anion Gap 11 5-15 Blood Urea Nitrogen 15 9-23 mg/dL Creatinine 1.07 H 0.550-1.02 mg/dL Glomerular Filtration Rate Calc 69 >90 mL/min BUN/Creatinine Ratio 14.0 10.0-20.0 Serum Glucose 87 74-106 mg/dL Calcium Level 9.5 8.7-10.4 mg/dL Total Bilirubin 0.5 0.2-1.0 mg/dL Aspartate Amino Transferase (AST) 17 13-40 U/L Alanine Aminotransferase (ALT) 19 7-40 U/L Alkaline Phosphatase 66 46-116 U/L C-Reactive Protein High Sensitivity 0.09 <1.0 mg/dL Total Protein 8.2 5.7-8.2 g/dL Albumin 4.6 3.2-4.8 g/dL Plasma/Serum Blood Alcohol < 3.0 <10 mg/dL PROCEDURE: XY CHEST XRAY 1 VIEW FINDINGS/IMPRESSION: Lungs: The lungs are clear. Mediastinum: Mediastinal structures appear unremarkable... Skeletal: The skeletal structures appear unremarkable. SEPSIS Sepsis Screen Date sepsis recognized/suspect: Sep 26, 2025 Time Sepsis recognized/suspect: 424 Recent Procedure: No On Antibiotic Therapy: No Respiratory Rate >20: Yes Heart Rate >90: Yes Temp<36 C (96.8 F) or >38.3 C: Yes SBP <90 or MAP <65 mmHG: No New Acute Mental Status Change: No Is the patient on CPAP, BIPAP,: No Physician Orders Drug Screen (09/26/25 03:44) Urinalysis (09/26/25 03:44) Levetiracetam (Keppra) (09/26/25 03:44) Seizure Precautions (09/26/25 ) Titrate Oxygen (09/26/25 03:44) Oxygen (09/26/25 ) Continous Pulse Oximetry (09/26/25 03:44) Saline Lock (09/26/25 03:44) Resource Specialist (09/26/25 ) Electrocardigram (09/26/25 04:07) Chest Xray 1 View (09/26/25 04:07) Electrocardigram (09/26/25 05:07) Electrocardigram (09/26/25 07:07) Admit (09/26/25 07:59) Code Status (09/26/25 07:59) Hydrocodone-Acet 5/325mg Tab ([place] 5/32 (09/26/25 08:00) Ondansetron Hcl (Zofran) (09/26/25 08:00) Docusate Sodium Capsule (Colace Capsule) (09/26/25 08:00) Complete Blood Count (09/27/25 04:00) Comprehensive Metabolic Panel (09/27/25 04:00) Condition: Serious (09/26/25 07:59) Acetaminophen Tablet (Tylenol Tablet) (09/26/25 08:00) Nitroglycerin Sublingual (Ntrostat Subli (09/26/25 08:00) Morphine Sulfate Injection (09/26/25 08:00) Stat Ekg For Chest Pain (09/26/25 07:59) Notify Md Of Changes From Base (09/26/25 07:59) Mine Administrator Supervisor For 24 Hours (09/26/25 07:59) Emergency Dysrhythmia Protocol (09/26/25 07:59) Rhythm Strips Once Every Shift (09/26/25 07:59) Oxygen By Nasal Cannula (09/26/25 07:59) Seizure Precautions In Place (09/26/25 07:59) Divalproex Dr Tablet (Depakote "Dr" Tabl (09/26/25 10:00) Levetiracetam Tablet (Keppra Tablet) (09/26/25 10:00) (Nf) Apixaban Base (Eliquis Starter Pack (09/26/25 08:15) Vital Signs Date Time Temp Pulse Resp B/P (MAP) Pulse Ox O2 Delivery O2 Flow Rate FiO2 09/26/25 06:00 97.5 82 12 116/76 (89) 100 97.5 09/26/25 05:00 81 12 106/61 (76) 100 09/26/25 03:52 100.1 94 15 128/82 (97) 100 100.1 09/26/25 03:49 95 32 100 Nasal Cannula* 2 28 Laboratory Tests Test 09/26/25 03:59 White Blood Count 6.5 10^3/uL (4.4-10.8) Medications Medications Dose Ordered Sig/La Route Start Time Stop Time Status Last Admin Dose Admin Levetiracetam 100 ml @ 400 mls/hr ONCE ONCE IV 09/26/25 03:45 09/26/25 03:59 DC 09/26/25 04:19 400 MLS/HR Lorazepam 2 mg ONCE ONCE IV 09/26/25 03:40 09/26/25 04:56 DC 09/26/25 03:40 2 MG Lorazepam 2 mg ONCE ONCE IV 09/26/25 03:45 09/26/25 03:46 DC 09/26/25 04:34 2 MG Sodium Chloride 1,000 ml @ 1,000 mls/hr Q1H ONCE IV 09/26/25 03:45 09/26/25 04:44 DC 09/26/25 03:45 1,000 MLS/HR Assessment/Plan Assessment/Plan Assessment: Recurrent seizures, Hypertension, Plan: Admit to Tele, Seizure precautions, Consider Neurology consult, UA, UDS, Lactic acid levels, Levetiracetam level, Home medications reconciled, Plan discussed with: Patient My Orders Orders - ONEYDA AYERS Procedure Category Date Status Time Admit ADMIT 09/26/25 Transmitted 07:59 Code Status CODE 09/26/25 Transmitted 07:59 Hydrocodone-Acet PHA 09/26/25 Transmitted 5/325mg Tab ([place] 08:00 Ondansetron Hcl PHA 09/26/25 Transmitted (Zofran) 08:00 Docusate Sodium PHA 09/26/25 Transmitted Capsule (Colace 08:00 Complete Blood Count LAB 09/27/25 Verified 04:00 Comprehensive LAB 09/27/25 Verified Metabolic Panel 04:00 Condition: Serious [facility] 09/26/25 Transmitted 07:59 Acetaminophen Tablet [facility] 09/26/25 Transmitted (Tylenol Tablet) 08:00 Nitroglycerin [facility] 09/26/25 Transmitted Sublingual (Ntrostat 08:00 Morphine Sulfate PHA 09/26/25 Transmitted Injection 08:00 Stat Ekg For Chest [facility] 09/26/25 Transmitted Pain 07:59 Notify Md Of Changes [facility] 09/26/25 Transmitted From Base 07:59 Mine Administrator Supervisor For [facility] 09/26/25 Transmitted 24 Hours 07:59 Emergency Dysrhythmia [facility] 09/26/25 Transmitted Protocol 07:59 Rhythm Strips Once [facility] 09/26/25 Transmitted Every Shift 07:59 Oxygen By Nasal RT 09/26/25 Transmitted Cannula 07:59 Seizure Precautions [facility] 09/26/[address] 07:[address] Tablet [facility] 09/26/25 Verified (Depakote "Dr" Tabl 10:00 Levetiracetam Tablet [facility] 09/26/25 Verified (Keppra Tablet) 10:00 (Nf) Apixaban Base [facility] 09/26/25 Verified (Eliquis Starter Pack 08:15 Date of Service: Sep 26, 2025 Billing Provider: ONEYDA AYERS Common Visit Codes: [id number] INP/OBS CARE (MOD) ONEYDA AYRES Sep 26, 2025 08:20
[2025-09-26 09:56] LABS: Amphetamine Screen, Urine Neg (NEGATIVE)
[2025-09-26 09:57] LABS: Barbiturate Scree,Urine Neg (NEGATIVE); Benzodiazephine Screen, Urine Pos (NEGATIVE); Cannabinoid Screen, Urine Neg (NEGATIVE); Cocaine Screen, Urine Neg (NEGATIVE); Opiate Scree,Urine Pos (NEGATIVE); Phencyclidine Screen, Urine Neg (NEGATIVE)
[2025-09-26 10:02] LABS: Urine Protein, UAD Negative (Negative)
[2025-09-26] MEDS: HYDROcodone-ACET 5/325MG TAB PO PRN (11:25)
[2025-09-26] MEDS: APIXABAN 5 MG TAB PO ONE (12:54)
[2025-09-26 20:45] VITALS: PULSE 76; RESP 14; O2SAT 100
[2025-09-26] MEDS: APIXABAN 5 MG TAB PO SCH (22:15)
[2025-09-26] MEDS: levETIRAcetam 500 MG TAB PO SCH (22:16)
--- NOTE | 2025-09-26 22:42 | DVHINCON2 ---
Date of service: Sep 26, [address] Cueto Reason for Consultation Seizures History of Present Illness She has a another count: V [id number], [id number] Ms. Sol is a 35 years old female with a history of seizure disorder, she was brought to the [facility] on 09/26/25 with a chief complaint of seizure. At this time, she is alert and fully oriented, she provided the the following history I saw on 08/07/2025 for seizure (Dr. Vickie Angulo's note dated 06/06/25: she had 70 witnessed seizure activity). 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 In the [facility], the patient is noticed to have a typical feature of the seizure disorder She is on Keppra 500 mg three tablets b.i.d., valproic acid 250 mg, 3 tablets b.i.d. Recently, the patient was found to have right arm DVT, she is on Eliquis 5 mg b.i.d. Urinalysis, 09/26/2025: WBC: 14, urine leukocyte esterase: 1+ UDS, 09/26/2025: Opiates, benzo Plasma alcohol, : <3 Keppra, 09/26/2025: CBC, 09/26/2025: Unremarkable BUN/CR, 09/26/2025: 15/1.07 GFR, 09/26/25: 69 Liver function tests, 09/26/2025: Unremarkable CT head, 06/06/2025: No acute intracranial abnormality. CT head, 07/11/2025: 1. No acute intracranial process. 2. Paranasal sinus disease, most severely involving the right maxillary and ethmoid sinuses. 3. Fluid density and sclerosis of the bilateral mastoid air cells which may be due to chronic mastoiditis. 4. Partially visualized endotracheal tube and OG tube Past Medical History Seizure disorder, asthma, heart disease, anxiety, depression, deep venous thrombosis Past Surgical History Stimulator insertion, Family History Diabetes, hypertension Social History She has not history of tobacco smoker, no history of drug/alcohol abuse Allergies: Coded Allergies: NO KNOWN ALLERGIES (Unverified , 09/26/25) Home Meds Reported Medications Levetiracetam (Levetiracetam) 500 Mg Tab, 1000 MG PO BID 09/26/25 Divalproex Sodium (Divalproex Sodium Dr) 250 Mg Tab, 500 MG PO BID 09/26/25 Apixaban Base (Eliquis Starter Pack) 5 Mg Tab, 1 TAB PO UD 09/26/25 Current Medications Current Medications Medications (Trade) Dose Ordered Sig/La Route PRN Reason Start Time Stop Time Status Last Admin Acetaminophen/ Hydrocodone Bitart (Cosby 5/325MG Tab) 1 tab Q4HP PRN PO MODERATE PAIN (4-6 PAIN SCALE) 09/26/25 08:00 09/26/25 22:26 Ondansetron HCl (Zofran) 4 mg Q4HP PRN IV NAUSEA / VOMITING 09/26/25 08:00 Docusate Sodium (Colace Capsule) 100 mg BIDPRN PRN PO FOR CONSTIPATION 09/26/25 08:00 Acetaminophen (Tylenol Tablet) 650 mg Q6HP PRN PO PAIN SCALE 1-3 OR TEMP>100.4 09/26/25 08:00 Nitroglycerin (Ntrostat Sublingual) 0.4 mg Q5MINP PRN SL FOR CHEST PAIN 09/26/25 08:00 Morphine Sulfate 2 mg Q30M PRN IV FOR CHEST PAIN 09/26/25 08:00 Divalproex Sodium (Depakote "Dr" Tablet) 500 mg BID PO 09/26/25 10:00 09/26/25 22:15 Levetiracetam (Keppra Tablet) 1,000 mg BID PO 09/26/25 22:00 09/26/25 22:16 Apixaban (Eliquis) 5 mg BID PO 09/26/25 22:00 09/26/25 22:15 Review of Systems As above, the other systems are negative Vital Signs Vital Signs Date Time Temp Pulse Resp B/P (MAP) Pulse Ox O2 Delivery O2 Flow Rate FiO2 09/26/25 20:45 76 14 100 Room Air* 0 21 09/26/25 20:11 97.9 138/91 (107) 97.9 Physical Exam GENERAL EXAM: General: the patient is well developed and nourished. No acute distress. HEENT: Normocephalic, neck is supple, no carotid bruits. No mass. RESPIRATORY: Normal respiratory effort with symmetrical lung expansion. Lungs clear to auscultation. CARDIOVASCULAR: Regular rate and rhythm with no murmurs. S1, S2. ABDOMEN: Soft, nontender, normal bowel sound MUSCULOSKELETAL EXAM: No pain in the knees NEUROLOGICAL: MENTAL STATUS: Awake and alert. Oriented to person, place, time and general circumstances. Able to give personal history. SPEECH, LANGUAGE, HIGHER CORTICAL FUNCTION: no aphasia or dysathria. CRANIAL NERVES: #2: Intact visual saleem to confrontation. The optic discs were sharp. #3,4,6: Pupils are equal, round and reactive. EOMs full and conjugate. No nystagmus. #5: Facial sensation intact in all three divisions bilaterally. Mandibular strength intact. #7: Facial muscles symmetrical and strength intact. #8: Hearing grossly normal to voice. #9,10: Uvula and soft palate rise in the midline. Swallow and voice are normal. #11: Trapezius and sternomastoid strength intact bilaterally. #12: Tongue midline. No fasciculations or atrophy. SENSATION: Sensation to touch and pinprick is normal. MOTOR: Normal tone in the upper and lower extremity. Normal muscle bulk. No fasciculations. No abnormal movements or posturing. Muscle strength of the major groups in the upper extremities is 5/5. Muscle strength of the major groups in t he lower extremities is 5/5. REFLEXES: Deep tendon reflexes are symmetrical. No pathological reflexes. CEREBELLAR/COORDINATION: Finger to nose and heel to grover are normal bilaterally. GAIT/STATION: deferred. Labs/Diagnostic Data Labs Test 09/26/25 09:30 09/26/25 08:29 09/26/25 06:58 09/26/25 04:54 Range/Units Urine Color Light-yellow Yellow Urine Clarity Clear Clear Urine pH 6.0 5.0-9.0 Urine Specific [place] 1.031 1.001-1.035 Urine Protein Negative Negative Urine Ketones Negative Negative Urine Blood Negative Negative /uL Urine Nitrite Negative Negative Urine Bilirubin Negative Negative Urine Urobilinogen Normal Negative mg/dL Urine Leukocyte Esterase 1+ Negative /uL Urine RBC 10 0 - 4 /hpf Urine Microscopic WBC 14 H 0-5 /HPF Urine Squamous Epithelial Cells Few <5 /hpf Urine Bacteria Few H None Seen /hpf Urine Glucose Normal Normal mg/dL Urine Opiates Screen Pos NEGATIVE Urine Fentanyl Screen Neg NEGATIVE Urine Barbiturates Screen Neg NEGATIVE Urine Phencyclidine Screen Neg NEGATIVE Urine Amphetamines Screen Neg NEGATIVE Urine Benzodiazepines Screen Pos NEGATIVE Urine Cocaine Screen Neg NEGATIVE Urine Cannabinoids Screen Neg NEGATIVE Lactic Acid Level 0.9 0.4-2.0 mmol/L Troponin I High Sensitivity < 3 L </=34 ng/L Test 09/26/25 03:59 Range/Units White Blood Count 6.5 4.4-10.8 10^3/uL Red Blood Count 3.92 L 4.0-5.20 10^6/uL Hemoglobin 13.1 12.2-16.2 g/dL Hematocrit 38.9 36.0-46.0 % Mean Corpuscular Volume 99.4 80.0-100.0 fL Mean Corpuscular Hemoglobin 33.5 H 28.0-32.0 pg Mean Corpuscular Hemoglobin Concent 33.7 32.0-36.0 g/dL Red Cell Distribution Width 12.9 11.8-14.3 % Platelet Count 240 140-450 10^3/uL Mean Platelet Volume 8.3 6.9-10.8 fL Neutrophils (%) (Auto) 55.7 37.0-80.0 % Lymphocytes (%) (Auto) 34.8 10.0-50.0 % Monocytes (%) (Auto) 5.1 0.0-12.0 % Eosinophils (%) (Auto) 3.6 0.0-7.0 % Basophils (%) (Auto) 0.8 0.0-2.0 % Neutrophils # (Auto) 3.6 1.6-8.6 10 ^3/uL Lymphocytes # (Auto) 2.3 0.4-5.4 10 ^3/uL Monocytes # (Auto) 0.3 0-1.3 10 ^3/uL Eosinophils # (Auto) 0.2 0-0.8 10 ^3/uL Basophils # (Auto) 0 0-0.2 10 ^3/uL Nucleated Red Blood Cells 0.1 % Sodium Level 138 136-145 mmol/L Potassium Level 4.2 3.5-5.1 mmol/L Chloride Level 105 98-107 mmol/L Carbon Dioxide Level 22 20-31 mmol/L Anion Gap 11 5-15 Blood Urea Nitrogen 15 9-23 mg/dL Creatinine 1.07 H 0.550-1.02 mg/dL Glomerular Filtration Rate Calc 69 >90 mL/min BUN/Creatinine Ratio 14.0 10.0-20.0 Serum Glucose 87 74-106 mg/dL Calcium Level 9.5 8.7-10.4 mg/dL Total Bilirubin 0.5 0.2-1.0 mg/dL Aspartate Amino Transferase (AST) 17 13-40 U/L Alanine Aminotransferase (ALT) 19 7-40 U/L Alkaline Phosphatase 66 46-116 U/L C-Reactive Protein High Sensitivity 0.09 <1.0 mg/dL Total Protein 8.2 5.7-8.2 g/dL Albumin 4.6 3.2-4.8 g/dL Plasma/Serum Blood Alcohol < 3.0 <10 mg/dL Assessment Status epileptics Grand mal seizure with atypical features Mixed epileptic and nonepileptic seizures Plan/Recommendation Monitoring Supportive treatment Keppra 1500 mg b.i.d. Depakote 750mg Bid Ativan for seizure breakthrough More recommendation per clinical course Okay to discharge home after 23 hours' seizure free from neurologic point of view This medical document was created using an electronic medical record system with [employer] dictation system. Although this document has been carefully reviewed, there may still be some phonetic and typographical errors. These areas are purely typographical due to imperfections of the software programs, and do not reflect any compromise in the patient's medical care. Plan discussed with: Patient, Other DOMENIC SHIPMAN MD Sep 26, 2025 22:42
[2025-09-27] MEDS ORDERED: levETIRAcetam 500 MG TAB PO SCH (00:45)
[2025-09-27 06:04] LABS: Hematocrit 40.6 % (36.0-46.0); Hemoglobin 13.7 g/dL (12.2-16.2); Mean Corpuscular Hemoglobin 34.0 pg (28.0-32.0); Mean Corpuscular Volume 100.5 fL (80.0-100.0); Nucleated Red Blood Cells % 0.1 %
[2025-09-27 06:14] LABS: Alanine Aminotransferase 20 U/L (7-40); Albumin 4.8 g/dL (3.2-4.8); Alkaline Phosphatase 79 U/L (46-116); Anion Gap 12 (5-15); BUN/Creatinine Ratio 13.5 (10.0-20.0); Blood Urea Nitrogen 12 mg/dL (9-23); Calcium 9.5 mg/dL (8.7-10.4); Carbon Dioxide 23 mmol/L (20-31); Chloride 105 mmol/L (98-107); Glucose 98 mg/dL (74-106); Potassium 5.0 mmol/L (3.5-5.1); Sodium 140 mmol/L (136-145)
[2025-09-27 06:21] LABS: Bilirubin, Total 0.2 mg/dL (0.2-1.0); Total Protein 8.4 g/dL (5.7-8.2)
[2025-09-27 08:00] VITALS: PULSE 65; RESP 20; O2SAT 98
--- NOTE | 2025-09-27 08:20 | DVHPN2 ---
Progress Note - Dictate Date Seen: Sep 27, 2025 Medical Necessity Reason Pt with a Central, PICC or Fol: No Subjective She has a another count: V [id number], [id number] Ms. Sol is a 35 years old female with a history of seizure disorder, she was brought to the [facility] on 09/26/25 with a chief complaint of seizure. At this time, she is alert and fully oriented, she provided the the following history I saw on 08/07/2025 for seizure (Dr. Vickie Angulo's note dated 06/06/25: she had 70 witnessed seizure activity). 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 Her nurse reported there was no postictal confusion Since 2014, the patient has had episodic event where she has shaking all over body, nonresponsiveness, with biting, incontinence, she only remembers very small amount of the seizures in that she was shaking all over the body. Previously in the [facility], he had seizure activities with or atypical features I have seen and examined the patient, I have discussed with medical staff. No seizure activity noticed overnight but when I came to she was seizing, he has had she was left side, whole-body, include the head was rolling back with eyes closed, end-stage was sisters tried to open the eyes, meanwhile vitals, respiration was no saliva I have tonsil secretion from the mouth. Seizure lasted for about 40-50 seconds after he came to, talked, follows verbal commands right after the seizure, though she was only oriented to person. She agreed that she just had a seizure After she had another seizure, which different, she had dropping like activity torso, and head was nodding, legs were shaking, the left arm was rigid (we were trying to put pulse ox to the finger), the seizure lasted for about 30 40 seconds, and she was able to talk to me right after the event was over. There was elevated heart rate and blood pressure during this event She mentally recovered later Urinalysis, 09/26/2025: WBC: 14, urine leukocyte esterase: 1+ UDS, 09/26/2025: Opiates, benzo Plasma alcohol, : <3 Keppra, 09/26/2025: CBC, 09/26/2025: Unremarkable BUN/CR, 09/26/2025: 15/1.07 GFR, 09/26/25: 69 Liver function tests, 09/26/2025: Unremarkable CT head, 06/06/2025: No acute intracranial abnormality. CT head, 07/11/2025: 1. No acute intracranial process. 2. Paranasal sinus disease, most severely involving the right maxillary and ethmoid sinuses. 3. Fluid density and sclerosis of the bilateral mastoid air cells which may be due to chronic mastoiditis. 4. Partially visualized endotracheal tube and OG tube vital signs Vital Sign Date Time Temp Pulse Resp B/P (MAP) Pulse Ox O2 Delivery O2 Flow Rate FiO2 09/27/25 06:00 97.5 97 18 127/88 (101) 99 97.5 09/26/25 20:45 Room Air* 0 21 medications Current Medications Medications Dose Ordered Sig/La Route Start Time Stop Time Status Last Admin Dose Admin Acetaminophen/ Hydrocodone Bitart 1 tab Q4HP PRN PO 09/26/25 08:00 09/27/25 02:51 1 TAB Ondansetron HCl 4 mg Q4HP PRN IV 09/26/25 08:00 Docusate Sodium 100 mg BIDPRN PRN PO 09/26/25 08:00 Acetaminophen 650 mg Q6HP PRN PO 09/26/25 08:00 Nitroglycerin 0.4 mg Q5MINP PRN SL 09/26/25 08:00 Morphine Sulfate 2 mg Q30M PRN IV 09/26/25 08:00 Apixaban 5 mg BID PO 09/26/25 22:00 09/26/25 22:15 5 MG Levetiracetam 1,500 mg BID PO 09/27/25 10:00 Divalproex Sodium 750 mg BID PO 09/27/25 10:00 objective General: the patient is well developed and nourished. No acute distress. MENTAL STATUS: Awake and alert. Oriented to person, place, time SPEECH, LANGUAGE, HIGHER CORTICAL FUNCTION: no aphasia or dysathria. CRANIAL NERVES: Pupils are equal, round and reactive. EOMs full and conjugate. No nystagmus. Facial sensation intact in all three divisions bilaterally. Mandibular strength intact. Facial muscles symmetrical and strength intact. Tongue midline. No fasciculations or atrophy. SENSATION: Sensation to touch and pinprick is normal. MOTOR: Normal tone in the upper and lower extremity. Normal muscle bulk. No fasciculations. No abnormal movements or posturing. Muscle strength of the major groups in the extremities is 5/5. REFLEXES: Deep tendon reflexes are symmetrical. No pathological reflexes. CEREBELLAR/COORDINATION: Finger to nose and heel to grover are normal bilaterally. 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 Depakote 750mg Bid Ativan for seizure breakthrough More recommendation per clinical course Okay to discharge home after 23 hours' seizure free from neurologic point of view This medical document was created using an electronic medical record system with [employer] dictation system. Although this document has been carefully reviewed, there may still be some phonetic and typographical errors. These areas are purely typographical due to imperfections of the software programs, and do not reflect any compromise in the patient's medical care. Prognosis poor Plan discussed with: Patient, Other Total Time (mins): 40 DOMENIC SHIPMAN MD Sep 27, 2025 08:20
[2025-09-27] MEDS: levETIRAcetam 500 MG TAB PO SCH (10:31)
[2025-09-27 12:00] VITALS: BP 120/78; PULSE 68; RESP 15; TEMP 97.6; O2SAT 100
--- NOTE | 2025-09-27 13:43 | DVHDS2 ---
Discharge Summary Date of Admission Sep 26, 2025 at 07:59 Date of Discharge: Sep 27, 2025 Labs/Diagnostic Data: Laboratory Results Test 09/27/25 05:20 09/26/25 09:30 09/26/25 08:29 09/26/25 06:58 White Blood Count 4.7 10^3/uL (4.4-10.8) Red Blood Count 4.04 10^6/uL (4.0-5.20) Hemoglobin 13.7 g/dL (12.2-16.2) Hematocrit 40.6 % (36.0-46.0) Mean Corpuscular Volume 100.5 fL (80.0-100.0) Mean Corpuscular Hemoglobin 34.0 pg (28.0-32.0) Mean Corpuscular Hemoglobin Concent 33.8 g/dL (32.0-36.0) Red Cell Distribution Width 12.9 % (11.8-14.3) Platelet Count 313 10^3/uL (140-450) Mean Platelet Volume 7.8 fL (6.9-10.8) Neutrophils (%) (Auto) 41.4 % (37.0-80.0) Lymphocytes (%) (Auto) 42.1 % (10.0-50.0) Monocytes (%) (Auto) 4.3 % (0.0-12.0) Eosinophils (%) (Auto) 11.2 % (0.0-7.0) Basophils (%) (Auto) 1.0 % (0.0-2.0) Neutrophils # (Auto) 2.0 10 ^3/uL (1.6-8.6) Lymphocytes # (Auto) 2.0 10 ^3/uL (0.4-5.4) Monocytes # (Auto) 0.2 10 ^3/uL (0-1.3) Eosinophils # (Auto) 0.5 10 ^3/uL (0-0.8) Basophils # (Auto) 0 10 ^3/uL (0-0.2) Nucleated Red Blood Cells 0.1 % Sodium Level 140 mmol/L (136-145) Potassium Level 5.0 mmol/L (3.5-5.1) Chloride Level 105 mmol/L (98-107) Carbon Dioxide Level 23 mmol/L (20-31) Anion Gap 12 (5-15) Blood Urea Nitrogen 12 mg/dL (9-23) Creatinine 0.89 mg/dL (0.550-1.02) Glomerular Filtration Rate Calc 87 mL/min (>90) BUN/Creatinine Ratio 13.5 (10.0-20.0) Serum Glucose 98 mg/dL (74-106) Calcium Level 9.5 mg/dL (8.7-10.4) Total Bilirubin 0.2 mg/dL (0.2-1.0) Aspartate Amino Transferase (AST) 23 U/L (13-40) Alanine Aminotransferase (ALT) 20 U/L (7-40) Alkaline Phosphatase 79 U/L (46-116) Total Protein 8.4 g/dL (5.7-8.2) Albumin 4.8 g/dL (3.2-4.8) Urine Color Light-yellow (Yellow) Urine Clarity Clear (Clear) Urine pH 6.0 (5.0-9.0) Urine Specific [place] 1.031 (1.001-1.035) Urine Protein Negative (Negative) Urine Ketones Negative (Negative) Urine Blood Negative /uL (Negative) Urine Nitrite Negative (Negative) Urine Bilirubin Negative (Negative) Urine Urobilinogen Normal mg/dL (Negative) Urine Leukocyte Esterase 1+ /uL (Negative) Urine RBC 10 /hpf (0 - 4) Urine Microscopic WBC 14 /HPF (0-5) Urine Squamous Epithelial Cells Few /hpf (<5) Urine Bacteria Few /hpf (None Seen) Urine Glucose Normal mg/dL (Normal) Urine Opiates Screen Pos (NEGATIVE) Urine Fentanyl Screen Neg (NEGATIVE) Urine Barbiturates Screen Neg (NEGATIVE) Urine Phencyclidine Screen Neg (NEGATIVE) Urine Amphetamines Screen Neg (NEGATIVE) Urine Benzodiazepines Screen Pos (NEGATIVE) Urine Cocaine Screen Neg (NEGATIVE) Urine Cannabinoids Screen Neg (NEGATIVE) Lactic Acid Level 0.9 mmol/L (0.4-2.0) Troponin I High Sensitivity < 3 ng/L (</=34) Test 09/26/25 04:54 09/26/25 03:59 C-Reactive Protein High Sensitivity 0.09 mg/dL (<1.0) Plasma/Serum Blood Alcohol < 3.0 mg/dL (<10) Other Laboratory Tests 09/27/25 05:20 Brief Hx & Hospital Course: 35-year-old female with a known history of seizure disorder currently on Keppra and Depakote presented to the hospital we will seizure-like activities. Eventually patient was admitted. Patient was seen by Neurology. Patient was resumed on home doses of Keppra has been as Depakote. Patient denies any seizure episodes last 48 hours. Patient is being discharged under stable condition. Condition at Discharge: Stable Final Diagnosis/Problems List 1.Breakthrough seizures 2. Epilepsy 3. History of right upper extremity DVT currently on Eliquis Discharge Disposition: Home SNF Discharge Will this Physician continue t: No Discharge Instruct/Medications Diet: Cardiac 2g Na,low cholest Activity: See Comment Activity comment: No driving while on seizure medications. Follow Up/Referral: Please follow up with the PCP and Neurology in 1-2 weeks Medications: Continue Keppra 1500 mg twice a day Continue Depakote 750 mg twice a day her home doses. Continued Medications: Apixaban Base (Eliquis Starter Pack) 5 Mg Tab 1 TAB PO UD Divalproex Sodium (Divalproex Sodium Dr) 250 Mg Tab 500 MG PO BID Levetiracetam (Levetiracetam) 500 Mg Tab 1 TAB PO BID Levetiracetam (Levetiracetam) 500 Mg Tab 1000 MG PO BID Discontinued Medications: Lacosamide (Lacosamide) 200 Mg Tab 1 TAB PO BID Scheduled Apixaban Base (Eliquis Starter Pack), 1 TAB PO UD, (Reported) Divalproex Sodium (Divalproex Sodium Dr), 500 MG PO BID, (Reported) Lacosamide (Lacosamide), 1 TAB PO BID, (Reported) Levetiracetam (Levetiracetam), 1 TAB PO BID, (Reported) Levetiracetam (Levetiracetam), 1,000 MG PO BID, (Reported) Discharge Statement: "Patient was advised to return to the ER or call 911 if any headaches, dizziness, shortness of breath, chest pain, abdominal pain, bleeding, fevers, or worsening of medical condition. Patient was counseled about treatment plan, medications, possible side effects, patientverbalized understanding. All questions were answered to the best of my ability. This discharge took greater then 30 minutes in planning, reviewing documentation, counseling the patient, and discussing with other team members." ASSESSMENT ASSESSMENT Assessment 1.Breakthrough seizures 2. Epilepsy 3. History of right upper extremity DVT currently on Eliquis Date of Service: Sep 27, 2025 Billing Provider: KATHERINE VILLAGOMEZ MD Common Visit Codes: 85348-UDU/OBS DISCH DAY >30min KATHERINE VILLAGOMEZ MD Sep 27, 2025 13:43
--- NOTE | 2025-09-28 06:48 | ECG ---
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 Consider WPW Ventricular premature complex Ventricular preexcitation(WPW) Baseline wander in lead(s) II,III,aVR,aVL,aVF,V1,V3,V5,V6 Electronically Signed On 09-28-2025 11:42:40 PST by Logan Goldberg Please click the below link to view image of tracing.
== END 2025-09-27 14:03 | disposition home or self-care (01) | DRG 53 ==
LOC: ER 03:40 → MERGE 07:59 → OVERFLOW 07:59 → UNDODEPER 09-27 13:59
PROVIDERS: ADMIT Internal Medicine; ATTEND Internal Medicine
DX: G40.401 Other generalized epilepsy and epileptic syndromes, not intractable, with status epilepticus (principal); F32.A Depression, unspecified; Z79.01 Long term (current) use of anticoagulants; J45.909 Unspecified asthma, uncomplicated; I10 Essential (primary) hypertension; F41.9 Anxiety disorder, unspecified; Z86.718 Personal history of other venous thrombosis and embolism; Z83.3 Family history of diabetes mellitus; Z82.49 Family history of ischemic heart disease and other diseases of the circulatory system; Z79.899 Other long term (current) drug therapy
CPT/HCPCS: 36415; 71045; 80053; 80307; 80320; 81001; 82542; 83605; 84484; 85025; 86141; 93005; 96365; 96375; G0378